=== PATIENT | female | born 1975 | race Caucasian/White ===

== ENCOUNTER 2020-04-05 09:57 | Outpatient (REF) | payer MEDICAID, SELFPAY | END 2020-04-05 09:58 | disposition home or self-care (01) | LOC: HO.XRAY 09:57 | PROVIDERS: PCP Family Medicine; Visit Provider Student in an Organized Health Care Education/Training Program | DX: M79.671 Pain in right foot (principal) | CPT/HCPCS: 99213 ==

== ENCOUNTER 2020-04-06 11:40 | Outpatient (RCR) | payer MEDICAID, SELFPAY ==
--- NOTE | 2020-04-17 12:45 | MHC.PT.DC ---
[facility] [place] Office [place] Office [place] Office [address] Anam Capellan [address] [phone] F: [phone] F: [phone] F: [phone] F: [phone] Physical Therapy Discharge Report Diagnosis: B foot pain Date of Surgery: Date of Evaluation: 04/06/20 Date of Discharge: 04/17/2020 Treatments to Date: 1 Cancellations to Date: 0 No Shows to Date: 2 Discharge Status: Pt no showed 2 appointments. Discharge Summary: Pt attended her initial PT evaluation for foot pain and then did not attend any treatment visits. She was given a home exercise program at her initial evaluation. Electronically signed by: Shasta Robertson PT, DPT Please sign and return to therapist. Thank you for your referral.
--- NOTE | 2020-04-17 12:47 | MHC.PT.EP ---
[facility] [place] Office [place] [facility] [place] Office [address] Anam Capellan [address] [phone] F: [phone] F: [phone] F: [phone] F: [phone] Physical Therapy Plan of Care Date of Evaluation: 04/06/20 Date of Surgery: Diagnosis: B foot pain Assessment: This is a 44 y/o female referred for B foot pain. Pain is located bilaterally at the medial arches and along the plantar fascia. Assessment reveals impairments including: pain, decreased PROM and AROM of the ankles, decreased hip AROM, mild TC joint restrictions, impaired muscle length, decreased strength, impaired posture, and impaired functional squat. Related functional limitations include: difficulty walking, standing, and negotiating stairs. Pt will benefit from skilled PT services 2x/week for 4 weeks in order to reduce impairments and improve limitations. Frequency and Duration: The patient will be seen 2x/week for 4 weeks, minimum of 38 visits. Short Term Goals: -In 2 weeks, Pt to demonstrate improved gastroc length through improved DF knee flexed ROM. -In 3 weeks, Pt to improve HS length by at least 8 degrees. Intermediate Goals: -In 4 weeks, Pt to report less than 6/10 pain when walking on the TM for 10 min @ comfortable walking speed. -In 4 weeks, Pt to demonstrate no tenderness to palpation. -In 4 weeks, Pt to demonstrate I w/ HEP. Treatment Plan: Modalities to reduce pain, spasms and effusion. Manual therapy to restore motion and function. Therapeutic exercise to improve strength and flexibility. Neuromuscular re-education for posture and balance. Therapeutic activities to return to functional activities of daily living. Please sign and return to therapist. Thank you for your referral.
== END 2020-04-17 12:48 | disposition other institution (70) ==
LOC: HO.PT 11:40
PROVIDERS: PCP Family Medicine; Visit Provider Student in an Organized Health Care Education/Training Program
DX: M79.671 Pain in right foot (principal); M79.672 Pain in left foot
CPT/HCPCS: 97110; 97162

== ENCOUNTER → 2020-04-25 15:17 | Outpatient (BNVA) | payer MEDICAID, SELFPAY | PROVIDERS: PCP Family Medicine; Referring Provider Family Medicine; Visit Provider Surgery | DX: D21.22 Benign neoplasm of connective and other soft tissue of left lower limb, including hip (principal) | CPT/HCPCS: 99212 ==

== ENCOUNTER → 2020-05-08 10:05 | Outpatient (BNVA) | payer MEDICAID, SELFPAY | PROVIDERS: PCP Family Medicine; Referring Provider Family Medicine; Visit Provider Nurse Practitioner | DX: Z76.89 Persons encountering health services in other specified circumstances (principal) ==

== ENCOUNTER 2020-05-15 10:34 | Outpatient (REF) | payer MEDICAID, SELFPAY ==
[2020-05-15 11:14] VITALS: BP 124/64; PULSE 74; RESP 16; TEMP 36.2; O2SAT 100
[2020-05-15 11:15] VITALS: BMI 31.6
[2020-05-15 11:42] VITALS: BP 110/82; PULSE 74; RESP 16; O2SAT 100
--- NOTE | 2020-05-16 08:42 | PM.OP ---
Brief Operative Note Date of Service: 05/15/20 Pre-op diagnosis: Fibroma left foot Post-op diagnosis: same Procedure: excision of fibroma left foot Implants: none Surgeon: Oh Marinelli MD Anesthesia: local Estimated blood loss (mL): 2 Pathology: other ( fibroma left foot) Condition: stable Disposition: other ( home)
--- NOTE | 2020-05-16 08:45 | P.OP_ITS ---
Operative Note Operative Note Date of Service: 05/15/20 Narrative: preoperative diagnosis: Fibroma left foot Postoperative diagnosis: Same Procedure excision of fibroma left foot Anesthesia: Local surgeon: Oh Marinelli MD Learning And Development Assistant: None Indications for procedure: 44-year-old female presenting with a raised pigmented lesion of the left foot on the ventral surface measuring approximately 1 cm diameter. The lesion has increased in size the patient is concerned about possibility of cancer. She presents today for excision. Operative findings: Patient was found to have a 1 cm diameter skin lesion which was brown slightly raised located on the dorsum of midfoot over the metatarsals. Specimen: Fibroma left foot Complications: None Estimated blood loss: 2 mL Procedure details patient was brought to the OR and placed in a supine position. After assuring informed consent and confirming the site of surgery in the left foot the skin was prepped with Betadine and draped in a sterile fashion. Local anesthesia consisting of 1% lidocaine with epinephrine was infiltrated below the lesion. An elliptical incision oriented longitudinally was created with a 15 blade. This was carried out through subcutaneous tissue and below the lesion. The lesion was completely excised and sent to pathology for further examination. After assuring adequate hemostasis with light pressure the skin was closed using interrupted 4 0 nylon sutures. Sterile dressings consisting of 2 x 2 gauze and paper tape were then applied. The patient tolerated the procedure well. Sponge, instrument, needle counts reported as correct. Patient was discharged to home in stable condition.
== END 2020-05-15 10:35 | disposition home or self-care (01) ==
LOC: HO.MS 10:34
PROVIDERS: PCP Family Medicine; Visit Provider Surgery
PROC: (CPT 11422; principal; 2020-05-15 11:00)
DX: D23.72 Other benign neoplasm of skin of left lower limb, including hip (principal)
CPT/HCPCS: 11422; 88304; 88305

== ENCOUNTER → 2020-05-23 09:35 | Outpatient (BNVA) | payer MEDICAID, SELFPAY | PROVIDERS: PCP Family Medicine; Referring Provider Family Medicine; Visit Provider Surgery | DX: D21.22 Benign neoplasm of connective and other soft tissue of left lower limb, including hip (principal) | CPT/HCPCS: 99212 ==

== ENCOUNTER 2020-07-21 08:18 | Outpatient (REF) | payer MEDICAID, SELFPAY ==
--- NOTE | ~2020-07-21 | XR_ITS ---
EXAMINATION: XR LUMBOSACRAL SPINE CLINICAL INFORMATION: Low back pain and right-sided sciatica COMPARISON: Previous x-ray March 2019 TECHNIQUE: Three views of the lumbosacral spine. FINDINGS: The vertebral bodies and posterior elements are normal. The disc spaces are preserved and the vertebral alignment is normal. The paraspinal soft tissues are normal. XR/XR lumbar spine 2-3V IMPRESSION: Unremarkable examination.
--- NOTE | ~2020-07-21 | XR_ITS ---
EXAMINATION: BILATERAL FOOT X-RAY CLINICAL INFORMATION: Pain COMPARISON: Previous right foot x-ray March 2019 TECHNIQUE: 3 views of each foot FINDINGS: Right: Bone alignment is normal. No fracture or dislocation is seen. There are small osteophytes at the first MTP joint. Joint spaces are otherwise normal. Soft tissues are normal. Left: Bone alignment is normal. No fracture or dislocation is seen. Joint spaces are normal. Soft tissues are normal. XR/XR foot RT min 3V IMPRESSION: Small osteophytes at the first MTP joint otherwise unremarkable exam
--- NOTE | ~2020-07-21 | XR_ITS ---
EXAMINATION: BILATERAL FOOT X-RAY CLINICAL INFORMATION: Pain COMPARISON: Previous right foot x-ray March 2019 TECHNIQUE: 3 views of each foot FINDINGS: Right: Bone alignment is normal. No fracture or dislocation is seen. There are small osteophytes at the first MTP joint. Joint spaces are otherwise normal. Soft tissues are normal. Left: Bone alignment is normal. No fracture or dislocation is seen. Joint spaces are normal. Soft tissues are normal. XR/XR foot LT min 3V IMPRESSION: Small osteophytes at the first MTP joint otherwise unremarkable exam
== END 2020-07-21 08:19 | disposition home or self-care (01) ==
LOC: HO.XRAY 08:18
PROVIDERS: Absent Provider Family Medicine; PCP Family Medicine; Visit Provider Student in an Organized Health Care Education/Training Program
DX: M79.672 Pain in left foot (principal); M79.671 Pain in right foot; M54.41 Lumbago with sciatica, right side; M79.7 Fibromyalgia
CPT/HCPCS: 72100; 73630; 99212

== ENCOUNTER 2020-08-16 09:12 | Outpatient (REF) | payer MEDICAID, SELFPAY ==
--- NOTE | 2020-08-16 | EMG_ITS ---
HISTORY OF PRESENT ILLNESS: This is a 44-year-old woman with a history of left leg and foot pain. She is currently on no medications. PHYSICAL EXAMINATION: On examination, she is alert and oriented with normal intellectual functions. Her cranial nerves II through XII are normal. Muscle tone and strength are normal in all 4 extremities. Deep tendon reflexes symmetrical. IMPRESSION: Rule out nerve entrapment, rule out lumbar radiculopathy. Nerve conduction EMG study: Normal electrodiagnostic study of the left lower extremity with no evidence of generalized peripheral neuropathy or nerve entrapment. Normal EMG of the left L4-S1 innervated muscles. MD QUEENIE Weaver/BETTY / [id number]
== END 2020-08-16 09:13 | disposition home or self-care (01) ==
LOC: HO.NEURO 09:12
PROVIDERS: PCP Family Medicine; Visit Provider Family Medicine
DX: M54.42 Lumbago with sciatica, left side (principal)
CPT/HCPCS: 95885; 95910

== ENCOUNTER → 2020-09-11 08:30 | Outpatient (BNVA) | payer MEDICAID, SELFPAY | PROVIDERS: PCP Family Medicine; Visit Provider Nurse Practitioner ==

== ENCOUNTER → 2020-10-09 09:22 | Outpatient (BNVA) | payer MEDICAID, SELFPAY | PROVIDERS: PCP Family Medicine; Visit Provider Nurse Practitioner ==

== ENCOUNTER 2020-10-25 10:20 | Outpatient (REF) | payer MEDICAID, SELFPAY ==
--- NOTE | ~2020-10-25 | US_ITS ---
EXAMINATION: US ABDOMEN COMPLETE CLINICAL INFORMATION: Epigastric pain. COMPARISON: US abdomen 09/16/2019.US renals only 10/20/2017. CT abdomen pelvis 10/11/2015. TECHNIQUE: Real-time imaging of the abdominal viscera. FINDINGS: PANCREAS: Not well visualized due to bowel gas. ABDOMINAL AORTA: Not well visualized due to bowel gas. INFERIOR VENA CAVA: The visualized IVC is normal. LIVER: Normal. The liver is normal in size. The liver contour is normal. Parenchymal echogenicity is normal. No focal hepatic lesion. There is no intrahepatic biliary duct dilatation seen. GALLBLADDER: Normal. The gallbladder is physiologically distended without evidence of stones, sludge, polyps, wall thickening or pericholecystic fluid. COMMON BILE DUCT: Normal in caliber measuring 0.7 cm in diameter. RIGHT KIDNEY: Normal. No hydronephrosis. No renal calculi or focal parenchymal lesions. The kidney measures 10.2 cm in maximum dimension. LEFT KIDNEY: Normal. No hydronephrosis. No renal calculi or focal parenchymal lesions. The kidney measures 10.8 cm in maximum dimension. SPLEEN: Normal. The spleen measures 7.5 cm in maximum dimension. FREE FLUID: None. US/US abdomen complete IMPRESSION: Limited visualization of the pancreas and aorta. Otherwise unremarkable exam.
== END 2020-10-25 10:21 | disposition home or self-care (01) ==
LOC: HO.US 10:20
PROVIDERS: Visit Provider Nurse Practitioner
DX: R10.13 Epigastric pain (principal); K21.9 Gastro-esophageal reflux disease without esophagitis
CPT/HCPCS: 76700

== ENCOUNTER 2020-12-04 17:47 | Emergency (ER) | payer MEDICAID, SELFPAY ==
--- NOTE | ~2020-12-04 | CT_ITS ---
EXAMINATION: CT ABDOMEN AND PELVIS WITHOUT CONTRAST CLINICAL INFORMATION: Right-sided abdominal and flank pain COMPARISON: MRI abdomen 11/02/2019, CT abdomen pelvis 10/11/2015 and 08/22/2010 TECHNIQUE: Multidetector volumetric imaging was performed from the superior aspect of the liver through the pubic symphysis. Sagittal and coronal reformatted images were obtained on the technologist's workstation. This CT examination was performed using dose optimization techniques as appropriate, variously including the following: *Automated exposure control *Adjustment of mA and/or kV according to patient size (this includes techniques or standardized protocols for targeted exams where dose is matched to indication/reason for exam; i.e. extremities or head) *Use of iterative reconstruction technique DLP: 799 mGy-cm FINDINGS: LUNG BASES: The visualized lung bases are unremarkable. LIVER, GALLBLADDER, AND BILIARY TREE: The liver is normal in size, shape, and attenuation. No focal hepatic lesion or biliary ductal dilatation is present. The gallbladder is unremarkable with no evidence of radiopaque gallstones, gallbladder wall thickening, or obvious pericholecystic inflammatory changes. PANCREAS: Unremarkable. SPLEEN: Unremarkable. ADRENAL GLANDS: Unremarkable. KIDNEYS AND URETERS: The kidneys are normal in size, shape, and attenuation. No hydronephrosis, hydroureter, or calculi seen. No perinephric stranding. BLADDER: Unremarkable. GASTROINTESTINAL TRACT: The small and large bowel are unremarkable. The appendix is unremarkable. ABDOMINAL WALL: No significant hernia is appreciated. LYMPH NODES: Normal. VASCULAR: Unremarkable. PELVIC VISCERA: Unremarkable. OSSEOUS STRUCTURES: Unremarkable. CT/CT abdomen pelvis wo con IMPRESSION: A cause for the right-sided abdominal and flank pain has not been found.
[2020-12-04 18:08] VITALS: BP 153/80; PULSE 98; RESP 18; TEMP 36.6; O2SAT 99; BMI 34.1
[2020-12-04 18:32] LABS: Glucose Urine UA NEG (NEG); Leukocyte Esterase Urine NEG (NEG); Nitrite Urine NEG (NEG); Specific Gravity - Urine 1.015 (1.005-1.025); Urine Blood NEG (NEG); Urine Ketones 5 MG/DL (NEG); Urine Protein NEG (NEG-TRACE)
[2020-12-04 18:33] LABS: Appearance Urine CLEAR; Color Urine YELLOW
[2020-12-04 18:34] LABS: UPreg QC Valid YES; Urine Pregnancy NEGATIVE (NEGATIVE)
--- NOTE | 2020-12-04 18:56 | ED.ABDPAIN ---
HPI - Abdominal Pain General Chief Complaint: Abdominal Pain Stated Complaint: Lower abdominal pain Time Seen by Provider: 12/04/20 18:55 Source: patient Mode of arrival: ambulatory Limitations: language barrier (functional skills tutor present for all interactions) History of Present Illness HPI narrative: 45-year-old female primarily Bahamian-speaking she reports she has a history of pre diabetes, fibromyalgia, asthma, gastroesophageal reflux disease and prior history of urinary tract infection with hematuria being followed by Urology she presents today with complaint of States for past several days she has had right-sided flank pain radiating to the right-sided abdomen pain described as aching like and worsened with certain movements and palpation. States she does suffer from chronic pain due to fibromyalgia and will now frequently wake up with pains which are more intense. She otherwise denies any joint pains, fever, weight loss or gain. No headache or neck pain. There is no chest pain or shortness of breath. MD elicited complaint: flank pain Pertinent past history: none Onset (ago): day(s) Pain Consistency: intermittent Location: RLQ and R flank Quality: aching Radiation: RLQ Migration to: no migration Exacerbating factors: movement Relieving factors: nothing Associated symptoms: denies other symptoms Related Data Home Medications Medication Instructions Recorded Confirmed acetaminophen 325 mg capsule 325 mg PO QID PRN 04/05/20 05/23/20 albuterol sulfate 90 mcg/actuation 2 puff INHALATION 6XD 04/05/20 05/23/20 aerosol inhaler amitriptyline 10 mg tablet 10 mg PO BEDTIME 04/05/20 05/23/20 aspirin 81 mg tablet,delayed 81 mg PO DAILY 04/05/20 05/23/20 release atorvastatin 80 mg tablet 80 mg PO DAILY 04/05/20 05/23/20 baclofen 10 mg tablet 10 mg PO TID 04/05/20 05/23/20 clonidine HCl 0.1 mg tablet 0.1 mg PO BEDTIME 04/05/20 05/23/20 cyclobenzaprine 5 mg tablet 5 mg PO BEDTIME 04/05/20 05/23/20 fluticasone propionate 110 1 puff INHALATION BID 04/05/20 05/23/20 mcg/actuation HFA aerosol inhaler gabapentin 600 mg tablet 600 mg PO TID 04/05/20 05/23/20 hydroxyzine pamoate 50 mg capsule 50 mg PO QID PRN 04/05/20 05/23/20 loratadine 10 mg tablet 10 mg PO DAILY 04/05/20 05/23/20 montelukast 10 mg tablet 10 mg PO DAILY 04/05/20 05/23/20 oxcarbazepine 600 mg tablet 600 mg PO BID 04/05/20 05/23/20 sertraline 100 mg tablet 100 mg PO DAILY 04/05/20 05/23/20 tramadol 50 mg tablet 50 mg PO Q6H PRN 04/05/20 05/23/20 verapamil 120 mg tablet 120 mg PO DAILY 04/05/20 05/23/20 zolpidem 10 mg tablet 10 mg PO BEDTIME PRN 04/05/20 05/23/20 Previous Rx's Medication Instructions Recorded diclofenac sodium 1 % topical gel 2 g TOPICAL BID #100 g 04/05/20 pantoprazole 40 mg tablet,delayed 40 mg PO DAILY 30 Days #30 tab 09/11/20 release simethicone 180 mg capsule 180 mg PO TID 30 Days #90 cap 09/11/20 lidocaine 1 patch TOPICAL Q24H PRN #15 ea 12/04/20 Allergies Allergy/AdvReac Type Severity Reaction Status Date / Time No Known Allergies Allergy Verified 10/09/20 09:23 Review of Systems Review of Systems Constitutional: No Weight loss, No Fever, No Chills, No Night Sweats, No Fatigue, No Malaise ENT/Mouth: No Hearing loss, No Ear Pain, No Nasal Congestion, No Sinus Pain, No Hoarseness, No sore throat, No Rhinorrhea, No Swallowing Difficulty Eyes: No Eye Pain, No Swelling, No Redness, No Foreign Body, No Discharge, No Vision Changes Cardiovascular: No Chest Pain, No SOB, No Dyspnea on Exertion, No Orthopnea, No Edema, No Palpitations Respiratory: No Cough, No Sputum, No Wheezing, No Smoke Exposure, No Dyspnea Gastrointestinal: As noted per HPI, No Hematochezia, No Melena Genitourinary: no irregular bleeding, No Dysuria, No Urinary Frequency, No Hematuria, No Urinary Incontinence, No Urgency, No Flank Pain, No Urinary Flow Changes, No Hesitancy Musculoskeletal: No joint pain, No Myalgias, No Joint Swelling Skin: No Skin Lesions, No rash Neuro: No Weakness, No Numbness, No Paresthesias, No Loss of Consciousness, No Dizziness, No Headache Psych: No Social Issues Heme/Lymph: No Bruising, No Bleeding,No Lymphadenopathy Endocrine: No Polyuria, No Polydipsia, No Temperature Intolerance Yes all other systems are reviewed and are negative Physical Exam Vital Signs: Vital Signs: Last Vital Signs Temp 98.1 F 12/04/20 22:07 Pulse 69 12/04/20 22:07 Resp 18 12/04/20 22:07 BP 103/63 12/04/20 22:07 Pulse Ox 99 12/04/20 22:07 Body Mass Index 34.1 Reviewed Const: General: cooperative and healthy appearing; No acute distress or intoxicated appearing Nutritional Appearance: average body habitus Orientation/consciousness: patient oriented x3 HENMT: Head: Yes normal to inspection Ears: hearing grossly normal bilaterally Eyes: General: appearance normal, both eyes and all related structures Visual Zepeda: normal visual zepeda by confrontation Neck: Neck: Yes normal visual inspection, No positive Brudzinski's sign, No positive Kernig's sign and No tender Thyroid: Thyroid normal Chest: Chest palpation & inspection: normal inspection of the chest Resp: Effort & Inspection: normal respiratory effort Auscultation: clear to auscultation bilaterally Cardio: Jugular venous distension: no JVD Rhythm: regular rhythm Heart sounds: S1 normal heart sound present and S2 normal heart sound present GI: Inspection: Yes normal to inspection Palpation (GI): Soft to palpation Percussion: Yes normal to percussion Auscultation: normal bowel sounds : Other: Or the paraspinous muscle region General: Yes CVA tenderness on the right and diffuse Skin: General skin exam: no rashes or lesions noted Neuro: General: patient oriented x3 Extrem: General: Yes normal to inspection Course Course Course Narrative: Hard to differentiate between acute versus fibromyalgia for her labs overall stable. Given the acuity and severity of pain she was given IV fluids and morphine which helped her pain and subsequently CT scan of the abdomen pelvis were pursued without contrast to rule out urinary calculi versus obstruction/infection this was also unremarkable. Home care, return and follow-up instructions provided she will follow-up closely with her primary care doctor. She is overall nontoxic appearing. Abdominal exam is benign. Stable for discharge. MDM - Abdominal Pain Differential Diagnosis Differential diagnosis: Likely abdominal pain, calculus of kidney and renal colic; Unlikely aortic dissection, acute appendicitis, bowel perforation, constipation, diverticulitis, endometriosis, gastroenteritis, peptic ulcer disease and small bowel obstruction Medical Records Attestation: I reviewed the patient's medical records. Lab Data Attestation: I reviewed the patient's lab results. Result diagrams: 12/04/20 19:45 12/04/20 19:45 Labs: Lab Results 12/04/20 12/04/20 12/04/20 Range/Units 18:19 18:19 19:45 WBC 7.5 (4.8-10.8) X10*3/uL RBC 4.74 (4.20-5.50) X10*6/uL Hgb 14.2 (12.0-16.0) g/dl Hct 41.3 (37-47) % MCV 87.1 (80-98) fL MCH 30.0 (27.0-33.0) pg MCHC 34.4 (31.0-35.0) g/dl RDW 14.4 (11.0-16.0) % Plt Count 309 (160-400) X10*3/uL MPV 9.4 (9.4-12.3) fL Immature Gran % (Auto) 0.3 (0.0-0.4) % Neut % (Auto) 43.0 L (45-73) % Lymph % (Auto) 47.9 H (20-40) % [place] % (Auto) 7.6 (2-11) % Eos % (Auto) 0.9 (0-4) % Baso % (Auto) 0.3 (0-2) % Lymph # (Auto) 3.6 (1.2-4.9) X10*3/uL [place] # (Auto) 0.6 (0.1-1.2) X10*3/uL Eos # (Auto) 0.1 (0.0-0.4) X10*3/uL Baso # (Auto) 0.0 (0.0-0.2) X10*3/uL Abs Immat Gran (auto) 0.02 (0.00-0.03) X10*3/uL Absolute Neuts (auto) 3.2 (2.0-8.3) X10*3/uL Absolute Nucleated RBC 0.000 (0.0-0.012) X10*3/uL Nucleated RBC % (auto) 0.0 (0.0-0.2) /100WBC Sodium (135-145) mmol/L Potassium (3.3-5.1) mmol/L Chloride (96-108) mmol/L Carbon Dioxide (22-29) mmol/L Anion Gap (12-20) BUN (9-16) mg/dL Creatinine (0.5-1.4) mg/dL Estim Creat Clear Calc Estimated GFR Random Glucose (60-115) mg/dL Calcium (8.4-10.2) mg/dL Total Bilirubin (0.0-1.0) mg/dL AST (5-31) U/L ALT (0-31) U/L Alkaline Phosphatase (39-117) U/L Total Protein (6.5-8.0) g/dL Albumin (3.5-5.0) g/dL Urine Color YELLOW Urine Appearance CLEAR Urine pH 6.0 (5.0-8.0) Ur Specific [place] 1.015 (1.005-1.025) Urine Protein NEG (NEG-TRACE) MG/DL Urine Glucose (UA) NEG (NEG) MG/DL Urine Ketones 5 (NEG) MG/DL Urine Blood NEG (NEG) Urine Nitrite NEG (NEG) Ur Leukocyte Esterase NEG (NEG) Urine Test NEGATIVE (NEGATIVE) 12/04/20 Range/Units 19:45 WBC (4.8-10.8) X10*3/uL RBC (4.20-5.50) X10*6/uL Hgb (12.0-16.0) g/dl Hct (37-47) % MCV (80-98) fL MCH (27.0-33.0) pg MCHC (31.0-35.0) g/dl RDW (11.0-16.0) % Plt Count (160-400) X10*3/uL MPV (9.4-12.3) fL Immature Gran % (Auto) (0.0-0.4) % Neut % (Auto) (45-73) % Lymph % (Auto) (20-40) % [place] % (Auto) (2-11) % Eos % (Auto) (0-4) % Baso % (Auto) (0-2) % Lymph # (Auto) (1.2-4.9) X10*3/uL [place] # (Auto) (0.1-1.2) X10*3/uL Eos # (Auto) (0.0-0.4) X10*3/uL Baso # (Auto) (0.0-0.2) X10*3/uL Abs Immat Gran (auto) (0.00-0.03) X10*3/uL Absolute Neuts (auto) (2.0-8.3) X10*3/uL Absolute Nucleated RBC (0.0-0.012) X10*3/uL Nucleated RBC % (auto) (0.0-0.2) /100WBC Sodium 137 (135-145) mmol/L Potassium 3.9 (3.3-5.1) mmol/L Chloride 106 (96-108) mmol/L Carbon Dioxide 21 L (22-29) mmol/L Anion Gap 14 (12-20) BUN 13 (9-16) mg/dL Creatinine 0.85 (0.5-1.4) mg/dL Estim Creat Clear Calc 94.2 Estimated GFR > 60 Random Glucose 81 (60-115) mg/dL Calcium 9.5 (8.4-10.2) mg/dL Total Bilirubin 0.5 (0.0-1.0) mg/dL AST 14 (5-31) U/L ALT 13 (0-31) U/L Alkaline Phosphatase 62 (39-117) U/L Total Protein 7.8 (6.5-8.0) g/dL Albumin 4.3 (3.5-5.0) g/dL Urine Color Urine Appearance Urine pH (5.0-8.0) Ur Specific [place] (1.005-1.025) Urine Protein (NEG-TRACE) MG/DL Urine Glucose (UA) (NEG) MG/DL Urine Ketones (NEG) MG/DL Urine Blood (NEG) Urine Nitrite (NEG) Ur Leukocyte Esterase (NEG) Urine Test (NEGATIVE) Imaging Data Abdominal/pelvis CT without contrast: Radiologist's impression: [address] [id number] Scan ReportSigned Patient: Marcela Lopez#: [id number]: 1975Acct:[id number]/Sex: 45 / FADM Date: 12/04/20Loc: [email or web address].EDAttending Dr: Ordering Physician: Medhat Cavazos NP Date of Service: 12/04/20 Procedure(s): CT abdomen pelvis wo con Accession Number(s): [id number] cc: Medhat Cavazos NP~ EXAMINATION: CT ABDOMEN AND PELVIS WITHOUT CONTRAST CLINICAL INFORMATION: Right-sided abdominal and flank pain COMPARISON: MRI abdomen 11/02/2019, CT abdomen pelvis 10/11/2015 and 08/22/2010 TECHNIQUE: Multidetector volumetric imaging was performed from the superior aspect of the liver through the pubic symphysis. Sagittal and coronal reformatted images were obtained on the technologist's workstation. This CT examination was performed using dose optimization techniques as appropriate, variously including the following: *Automated exposure control *Adjustment of mA and/or kV according to patient size (this includes techniques or standardized protocols for targeted exams where dose is matched to indication/reason for exam; i.e. extremities or head) *Use of iterative reconstruction technique DLP: 799 mGy-cm FINDINGS: LUNG BASES: The visualized lung bases are unremarkable. LIVER, GALLBLADDER, AND BILIARY TREE: The liver is normal in size, shape, and attenuation. No focal hepatic lesion or biliary ductal dilatation is present. The gallbladder is unremarkable with no evidence of radiopaque gallstones, gallbladder wall thickening, or obvious pericholecystic inflammatory changes. PANCREAS: Unremarkable. SPLEEN: Unremarkable. ADRENAL GLANDS: Unremarkable. KIDNEYS AND URETERS: The kidneys are normal in size, shape, and attenuation. No hydronephrosis, hydroureter, or calculi seen. No perinephric stranding. BLADDER: Unremarkable. GASTROINTESTINAL TRACT: The small and large bowel are unremarkable. The appendix is unremarkable. ABDOMINAL WALL: No significant hernia is appreciated. LYMPH NODES: Normal. VASCULAR: Unremarkable. PELVIC VISCERA: Unremarkable. OSSEOUS STRUCTURES: Unremarkable. CT/CT abdomen pelvis wo con IMPRESSION: A cause for the right-sided abdominal and flank pain has not been found. Dictated By:RULA SMITH MDSigned By:<Electronically signed by RULA SMITH MD in OV>12/04/202011 DD/ 17TD/TT: Sales Representative Publications: DI Discharge Plan Discharge Clinical Impression: Acute flank pain Patient Disposition: Home, Self-Care Instructions: Flank Pain (ED) Additional Instructions: Your blood work was overall reassuring did not show any evidence of infection Urine did not show any evidence infection The CT scan of the abdomen pelvis did not show any acute findings Your findings are more consistent with muscle related strain. Continue with her home remedies Warm compresses Gentle stretching No heavy lifting Follow-up with her primary care doctor Return if any concerns worsening symptoms Thank you Prescriptions: New lidocaine 4 % adhesive patch,medicated 1 patch topical Q24H PRN (Reason: pain) Qty: 15 RF: 0 No Action cyclobenzaprine 5 mg tablet 5 mg PO BEDTIME RF: 0 gabapentin 600 mg tablet 600 mg PO TID RF: 0 verapamil 120 mg tablet 120 mg PO DAILY RF: 0 baclofen 10 mg tablet 10 mg PO TID RF: 0 zolpidem 10 mg tablet 10 mg PO BEDTIME PRNRF: 0 aspirin [Adult Low Dose Aspirin] 81 mg tablet,delayed release (DR/EC) 81 mg PO DAILY RF: 0 loratadine 10 mg tablet 10 mg PO DAILY RF: 0 Flovent HFA 110 mcg/actuation HFA aerosol inhaler 1 puff inhalation BID RF: 0 acetaminophen 325 mg capsule 325 mg PO QID PRNRF: 0 albuterol sulfate [ProAir HFA] 90 mcg/actuation HFA aerosol inhaler 2 puff inhalation 6XD RF: 0 amitriptyline 10 mg tablet 10 mg PO BEDTIME RF: 0 montelukast [Singulair] 10 mg tablet 10 mg PO DAILY RF: 0 oxcarbazepine [Trileptal] 600 mg tablet 600 mg PO BID RF: 0 tramadol 50 mg tablet 50 mg PO Q6H PRNRF: 0 clonidine HCl 0.1 mg tablet 0.1 mg PO BEDTIME RF: 0 hydroxyzine pamoate [Vistaril] 50 mg capsule 50 mg PO QID PRNRF: 0 atorvastatin 80 mg tablet 80 mg PO DAILY RF: 0 sertraline 100 mg tablet 100 mg PO DAILY RF: 0 diclofenac sodium [Voltaren] 1 % gel 2 g topical BID Qty: 100 RF: 3 pantoprazole [Protonix] 40 mg tablet,delayed release (DR/EC) 40 mg PO DAILY 30 Days Qty: 30 RF: 6 simethicone 180 mg capsule 180 mg PO TID 30 Days Qty: 90 RF: 3 Referrals: Cassie Barnett DO [Primary Care Provider] - 1 week [facility] Past Medical History [facility] Narrative: Pre diabetes Fibromyalgia Asthma Gastroesophageal reflux disease Chronic hematuria Medical History Fibromyalgia Surgical History History of carpal tunnel surgery History of esophagogastroduodenoscopy (EGD) (11/22/14) History of surgery on wrist Hx of cardiac cath (04/15/18) Hx of section Hx of removal of cyst Family History Family History Maternal Grandmother History of breast cancer Maternal Grandfather History of liver cancer Father CVD (cardiovascular disease) Mother HTN (hypertension) Diabetes Rheumatoid arthritis Fibromyalgia Social History Social History (Updated 10/09/20 @ 09:23 by BROOKE Starr) Household Members: None Housing: Apartment Alcohol intake: current Alcohol intake frequency: does not drink Substance Use Type: Marijuana Advance Directives: No Advance Directives Information Provided: No Patient : No
[2020-12-04 19:49] LABS: MANUAL DIFF FLAG NO
[2020-12-04 19:50] LABS: Basophils Percent Auto 0.3 % (0-2); Eosinophils Absolute Auto 0.1 X10*3/uL (0.0-0.4); Eosinophils Percent Auto 0.9 % (0-4); Hematocrit 41.3 % (37-47); Hemoglobin 14.2 g/dl (12.0-16.0); Imm Gran Abs Auto 0.02 X10*3/uL (0.00-0.03); Imm Gran Pct Auto 0.3 % (0.0-0.4); Lymphocytes Absolute Auto 3.6 X10*3/uL (1.2-4.9); Lymphocytes Percent Auto 47.9 % (20-40); Mean Corpuscular HGB Conc 34.4 g/dl (31.0-35.0); Mean Corpuscular Volume 87.1 fL (80-98); Mean Platelet Volume 9.4 fL (9.4-12.3); Monocytes Absolute Auto 0.6 X10*3/uL (0.1-1.2); Monocytes Percent Auto 7.6 % (2-11); Neutrophils Absolute Auto 3.2 X10*3/uL (2.0-8.3); Platelet Count 309 X10*3/uL (160-400); Red Blood Count 4.74 X10*6/uL (4.20-5.50); Red Cell Distribution Width 14.4 % (11.0-16.0); White Blood Count 7.5 X10*3/uL (4.8-10.8)
[2020-12-04] MEDS: Morphine Sulfate 4 MG/ML CARTRIDGE IVPUSH (19:51)
[2020-12-04] MEDS: 0.9 % Sodium Chloride 1,000 ML 999 ML IV (19:51)
[2020-12-04] MEDS: ondansetron HCL 4 MG/2 ML VIAL IVPUSH (19:52)
[2020-12-04 20:22] LABS: Alanine Aminotransferase 13 U/L (0-31); Albumin Level 4.3 g/dL (3.5-5.0); Alkaline Phosphatase 62 U/L (39-117); Anion Gap 14 (12-20); Aspartate Amino Transferase 14 U/L (5-31); Bilirubin Total 0.5 mg/dL (0.0-1.0); Blood Urea Nitrogen 13 mg/dL (9-16); Calcium 9.5 mg/dL (8.4-10.2); Carbon Dioxide 21 mmol/L (22-29); Chloride 106 mmol/L (96-108); Creatinine Clr Calc Pharmacy 94.2; Estimated Glomerular Filt Rate > 60; Glucose Random 81 mg/dL (60-115); Potassium 3.9 mmol/L (3.3-5.1); Sodium 137 mmol/L (135-145); Total Protein 7.8 g/dL (6.5-8.0)
[2020-12-04 22:07] VITALS: BP 103/63; PULSE 69; RESP 18; TEMP 36.7; O2SAT 99
== END 2020-12-04 23:19 | disposition home or self-care (01) ==
PROVIDERS: Nurse Practitioner Primary Care; Emergency Provider Emergency Medicine; PCP Family Medicine
DX: R10.9 Unspecified abdominal pain (principal); M79.7 Fibromyalgia; J45.909 Unspecified asthma, uncomplicated; Z79.899 Other long term (current) drug therapy
CPT/HCPCS: 36415; 74176; 80053; 81003; 81025; 85025; 96361; 96374; 96375; 99284; J2270; J2405

== ENCOUNTER → 2020-12-05 08:39 | Outpatient (BNVA) | payer MEDICAID, SELFPAY | PROVIDERS: PCP Family Medicine; Referring Provider Family Medicine; Visit Provider Nurse Practitioner | DX: K57.81 Diverticulitis of intestine, part unspecified, with perforation and abscess with bleeding (principal); K21.9 Gastro-esophageal reflux disease without esophagitis; R10.13 Epigastric pain; R10.9 Unspecified abdominal pain; M54.6 Pain in thoracic spine | CPT/HCPCS: 99212 ==

== ENCOUNTER 2020-12-07 09:30 | Outpatient (REF) | payer MEDICAID, SELFPAY ==
--- NOTE | ~2020-12-07 | XR_ITS ---
EXAMINATION: XR THORACOLUMBAR SPINE CLINICAL INFORMATION: Pain thoracic spine COMPARISON: None TECHNIQUE: 3 views FINDINGS: There is normal thoracic kyphosis. The vertebral heights, alignment and disc heights are normal. There is no visible acute fracture, dislocation or lytic process seen. The paravertebral soft tissues are normal. XR/XR thoracic spine 2V IMPRESSION: Unremarkable dorsal spine exam. No acute fracture or dislocation seen.
[2020-12-07 10:49] LABS: Lipase 8 U/L (8-78)
[2020-12-08 12:11] LABS: Alpha Fetoprotein 7.8 ng/mL
== END 2020-12-07 09:31 | disposition home or self-care (01) ==
LOC: HO.XRAY 09:30
PROVIDERS: PCP Family Medicine; Visit Provider Nurse Practitioner
DX: K75.81 Nonalcoholic steatohepatitis (NASH) (principal); R10.13 Epigastric pain; M54.6 Pain in thoracic spine
CPT/HCPCS: 36415; 72070; 82105; 83690

== ENCOUNTER 2020-12-19 16:45 | Outpatient (REF) | payer MEDICAID, SELFPAY | END 2020-12-19 16:46 | disposition home or self-care (01) | LOC: HO.LNP 16:45 | PROVIDERS: Visit Provider Nurse Practitioner | DX: R10.13 Epigastric pain (principal); K21.9 Gastro-esophageal reflux disease without esophagitis | CPT/HCPCS: 87338 ==

== ENCOUNTER 2021-01-01 09:07 | Outpatient (REF) | payer MEDICAID, SELFPAY ==
--- NOTE | ~2021-01-01 | US_ITS ---
EXAMINATION: US RETROPERITONEAL LIMITED (RENAL ONLY) CLINICAL INFORMATION: Abdominal pain. COMPARISON: CT abdomen and pelvis 12/05/2019. Ultrasound abdomen complete 10/25/2020 and 09/16/2019. MRI abdomen 11/02/2019. TECHNIQUE: Real-time imaging of the kidneys. FINDINGS: RIGHT KIDNEY: 11.7 x 5.5 x 4.5 cm (SAG x AP x TRV). The kidney is normal in size, contour, and echogenicity. Renal cortical thickness is normal. No calculi or focal parenchymal lesions. No hydronephrosis. LEFT KIDNEY: 10.2 x 6.4 x 6.1 cm (SAG x AP x TRV). The kidney is normal in size, contour, and echogenicity. Renal cortical thickness is normal. No calculi or focal parenchymal lesions. No hydronephrosis. US/US renal BI IMPRESSION: Unremarkable renal ultrasound.
== END 2021-01-01 09:08 | disposition home or self-care (01) ==
LOC: HO.US 09:07
PROVIDERS: PCP Family Medicine; Visit Provider Family Medicine
DX: R10.9 Unspecified abdominal pain (principal)
CPT/HCPCS: 76775

== ENCOUNTER → 2021-01-23 12:49 | Outpatient (BNVA) | payer MEDICAID, SELFPAY | PROVIDERS: PCP Family Medicine; Visit Provider Internal Medicine Cardiovascular Disease | DX: I25.10 Atherosclerotic heart disease of native coronary artery without angina pectoris (principal); E78.5 Hyperlipidemia, unspecified; R07.89 Other chest pain; R06.02 Shortness of breath; R42 Dizziness and giddiness | CPT/HCPCS: 93005; 99212 ==

== ENCOUNTER → 2021-01-26 08:06 | Outpatient (REF) | payer MEDICAID, SELFPAY ==
--- NOTE | ~2021-01-26 | NM_ITS ---
EXAMINATION: [place] RADIONUCLIDE SOLID FOOD GASTRIC EMPTYING 4-HOUR STUDY CLINICAL INFORMATION: Epigastric pain. COMPARISON: No previous gastric emptying study is available for comparison. TECHNIQUE: A standard meal consisting of 4 oz of Egg Beaters brand tagged with 890 microcuries Tc-99m Sulfur Colloid, 8 oz water and 2 slices of toast with jelly was administered orally to the patient. Images were obtained using a dual head gamma camera in the anterior and posterior projections over of the stomach immediately post ingestion. The patient did not return for images following the immediate images post ingestion and exam could not be completed. FINDINGS: There is good visualization of activity in the stomach immediately post ingestion. The patient did not return for additional images at hourly intervals and no additional images were obtained. NM/[place] gastric emptying study IMPRESSION: Incomplete study. Useful images were not obtained. The patient did not return for subsequent images required as explained to her. The study will need to be rescheduled if clinically indicated.
== END ==
LOC: HO.NUCMED 08:06
PROVIDERS: Visit Provider Nurse Practitioner
DX: R10.13 Epigastric pain (principal); K21.9 Gastro-esophageal reflux disease without esophagitis
CPT/HCPCS: 78264; A9541

== ENCOUNTER → 2021-02-20 08:52 | Outpatient (REF) | payer MEDICAID, SELFPAY ==
--- NOTE | 2021-02-20 09:06 | CA_ITS ---
Acquisition Time: 2021-02-20 09:13:56 Total Exercise Time: 00:03:51 Test Indications: Dyspnea Medications: Protocol: JARRELL Max HR: 133 BPM 76% of Pred: 175 BPM Max BP: 124/080 mmHG Max Work Load: 5.5 METS Exercise stress test with exercise 3 min 51 sec of Jarrell protocol, with report of 8/10 left chest tightness with radiation to her back with mild to moderate shortness of breath, without arrythmia, with normotensive response to exercise, with nondiagnostic EKG for ischemia due to suboptimal exercise time and heart rate. In recovery her chest tightness gradually improved and resolved by 5 min of rest. Test reviewed with Dr Grimes. Pharmacological nuclear stress test ordered for further evaluation. Referred By: Sunny Grimes Overread By: ANTONIO JOHNSON
== END ==
LOC: HO.CARD 08:52
PROVIDERS: Visit Provider Internal Medicine Cardiovascular Disease
DX: R07.89 Other chest pain (principal)
CPT/HCPCS: 93017

== ENCOUNTER → 2021-03-01 13:30 | Outpatient (REF) | payer MEDICAID, SELFPAY ==
--- NOTE | 2021-03-01 13:34 | CA_ITS ---
Transthoracic Echocardiogram Patient (Last, First, Middle): Marcela Lopez, Gender: Female Date of : 1975 Age: 45 Procedure Date: 03/01/2021 Procedure Type: Transthoracic Echocardiogram Location: OP Height: 165.1 cm Weight: 89.81 kg BSA: 1.97 m2 Heart Rate: bpm BP: 138 / 60 mmHg Documentation Engineer: KAMLESH Referring MD: Sunny Grimes MD [employer] Systems Operator: Sunny Grimes MD Symptoms: R06.02 - Shortness of breath Study Quality: Fair ECG Rhythm: Sinus Conclusions: - Essentially normal study Findings Left Ventricle Normal left ventricular size, thickness, and systolic function. The visually estimated ejection fraction is between 60-65%. Diastolic function is normal for age. Right Ventricle Normal right ventricular cavity size and systolic function. Atria Both atria are normal in size. Interatrial shunt cannot be excluded. Aortic Valve The aortic valve structure and function is likely normal. There is no aortic valve stenosis. There is no aortic valve regurgitation. Mitral Valve Normal mitral valve structure and function. There is trace mitral valve regurgitation. There is no mitral valve stenosis. Pulmonic Valve The pulmonic valve was not well visualized. Tricuspid Valve Likely normal tricuspid valve structure and function. There is trace tricuspid valve regurgitation. The right ventricular systolic pressure is normal. The right ventricular systolic pressure is 15 mmHg. Normal right atrial pressure. There is no evidence of pulmonary hypertension. Great Vessels All visible segments of the aorta are normal in size. The pulmonary artery was not well visualized. Venous The inferior vena cava is normal in size and collapses greater than 50% with inspiration. Pericardium/Pleural There is no evidence of pericardial effusion. Prior Study Comparison No significant change compared to prior study dated: 09/16/2017. Measurements 2D Linear Measurements IVSd: 0.97 0.6-0.9/0.6-1.0 cm LVIDd: 4.65 3.9-5.3/4.2-5.9 cm LVIDd Index: 2.36 2.4-3.2/2.2-3.1 cm/m2 LVIDs: 3.15 2.0-3.6 cm LVPWd: 1.08 0.7-1.1 cm Ao Root: 2.40 2.1-3.5 cm LA Diam: 3.70 2.7-3.8/3.0-4.0 cm LAIDs Index: 1.88 1.5-2.3 cm/m2 LV Mass: 208.09 67-162/88-224 g LV Mass Index: 105.63 43-95/49-115 g/m2 LVOT Diam: 2.00 3.0+(-)1.3 cm 2D Systolic Function EF 4C: 60.50 >55% EF 2C: 72.50 >55% EF BiP: 67.90 >55% Mitral Valve MV Pk E: 0.88 MV PK A: 0.38 MV Decel Time: 176.00 E/A: 2.30 E'Lateral: 16.60 E'Medial: 8.59 E/E' Med: 10.20 E/E' Lat: 5.30 PHT: 52.00 MVA PHT: 4.23 Decel [place]: 4.97 Aortic Valve AoV Pk Nino: 1.29 AoV Mn Nino: 83.40 AoV VTI: 27.40 AoV Pk Grad: 7.00 Aov Mn Grad: 3.00 LVOT LVOT Pk Nino: 1.32 LVOT Mn Nino: 0.83 LVOT VTI: 0.27 LVOT Pk Grad: 7.00 LVOT Mn Grad: 3.00 LVOT Diam: 2.00 LVOT Area: 3.14 Diastolic Function MV Pk E: 0.88 MV Pk A: 0.38 E/A: 2.30 E'Medial: 8.59 E/E' Med: 10.20 E' Laterial: 16.60 E/E' Lat: 5.30 Right Ventricle TAPSE (mm): 2.18 Tricuspid Valve TR Pk Nino: 1.72 TR Pk Grad: 12.00 RA Press: 3.00 RVSP: 15.00 Great Vessels Aorta Ao Root-2D: 2.40 2.0-3.7 cm Ao Asc: 3.20 2.1-3.4 cm Updated in Other Vendor System with Status of Final Sunny Grimes MD electronically signed on 03/02/2021 10:01:12 AM with status of Final
== END ==
LOC: HO.CARD 13:30
PROVIDERS: PCP Family Medicine; Visit Provider Internal Medicine Cardiovascular Disease
DX: R10.13 Epigastric pain (principal); R06.02 Shortness of breath
CPT/HCPCS: 93306

== ENCOUNTER 2021-05-13 12:03 | Emergency (ER) | payer MEDICAID, SELFPAY ==
--- NOTE | ~2021-05-13 | XR_ITS ---
EXAMINATION: XR CHEST CLINICAL INFORMATION: SOB. COMPARISON: None TECHNIQUE: Frontal view of the chest was obtained. FINDINGS: No significant abnormality is noted involving the heart, lungs, mediastinum, bony thorax or soft tissues. XR/XR chest 1V IMPRESSION: Unremarkable chest examination.
[2021-05-13 12:19] VITALS: BP 141/85; PULSE 81; RESP 18; TEMP 37.1; O2SAT 100; BMI 31.6
[2021-05-13 13:22] LABS: Influenza A PCR NEGATIVE (Negative); Influenza B PCR NEGATIVE (Negative); Resp Syncy Virus RNA Qual PCR NEGATIVE (Negative); SARS COV2 PCR INHOUSE NEGATIVE (Negative)
--- NOTE | 2021-05-13 13:50 | ED.ASTHMA ---
HPI - Asthma General Chief Complaint: Asthma Stated Complaint: asthma Time Seen by Provider: 05/13/21 13:47 Source: patient Mode of arrival: ambulatory Limitations: no limitations History of Present Illness HPI Narrative: 45-year-old female came in for evaluation of asthma exacerbation and facial pressure with nasal congestion. Two days of increased wheezing, feeling nasal congestion more at nighttime, and female facial pressure mostly over her left maxillary area. Never had hospitalization for severe asthma, no history of intubation due to asthma. Related Data Home Medications Medication Instructions Recorded Confirmed acetaminophen 325 mg capsule 325 mg PO QID PRN 04/05/20 01/23/21 albuterol sulfate 90 mcg/actuation 2 puff INHALATION 6XD 04/05/20 01/23/21 aerosol inhaler (ProAir HFA) amitriptyline 10 mg tablet 10 mg PO BEDTIME 04/05/20 01/23/21 aspirin 81 mg tablet,delayed 81 mg PO DAILY 04/05/20 01/23/21 release (Adult Low Dose Aspirin) atorvastatin 80 mg tablet 80 mg PO DAILY 04/05/20 01/23/21 baclofen 10 mg tablet 10 mg PO TID 04/05/20 01/23/21 clonidine HCl 0.1 mg tablet 0.1 mg PO BEDTIME 04/05/20 01/23/21 cyclobenzaprine 5 mg tablet 5 mg PO BEDTIME 04/05/20 01/23/21 fluticasone propionate 110 1 puff INHALATION BID 04/05/20 01/23/21 mcg/actuation HFA aerosol inhaler (Flovent HFA) gabapentin 600 mg tablet 600 mg PO TID 04/05/20 01/23/21 hydroxyzine pamoate 50 mg capsule 50 mg PO QID PRN 04/05/20 01/23/21 (Vistaril) loratadine 10 mg tablet 10 mg PO DAILY 04/05/20 01/23/21 montelukast 10 mg tablet 10 mg PO DAILY 04/05/20 01/23/21 (Singulair) oxcarbazepine 600 mg tablet 600 mg PO BID 04/05/20 01/23/21 (Trileptal) sertraline 100 mg tablet 100 mg PO DAILY 04/05/20 01/23/21 tramadol 50 mg tablet 50 mg PO Q6H PRN 04/05/20 01/23/21 zolpidem 10 mg tablet 10 mg PO BEDTIME PRN 04/05/20 01/23/21 Previous Rx's Medication Instructions Recorded diclofenac sodium 1 % topical gel 2 g TOPICAL BID #100 g 04/05/20 (Voltaren) simethicone 180 mg capsule 180 mg PO TID 30 Days #90 cap 09/11/20 lidocaine 4 % topical patch 1 patch TOPICAL Q24H PRN #15 ea 12/04/20 dicyclomine 20 mg tablet 20 mg PO QID 30 Days #120 tab 12/05/20 pantoprazole 40 mg tablet,delayed 40 mg PO BID 30 Days #60 tab 12/05/20 release (Protonix) verapamil 120 mg tablet 120 mg PO DAILY 90 Days #90 tab 05/09/21 albuterol sulfate 90 mcg/actuation 1 inh INHALATION QID PRN #6.7 g 05/13/21 aerosol inhaler azithromycin 250 mg tablet See Rx Instructions .ROUTE 05/13/21 (Zithromax Z-Stu) .COMPLEX #6 tab prednisone 20 mg tablet 20 mg PO BID #10 tab 05/13/21 Allergies Allergy/AdvReac Type Severity Reaction Status Date / Time No Known Allergies Allergy Verified 12/05/20 08:55 Review of Systems Review of Systems: All other systems are reviewed and are negative Constitutional: Reports as per HPI and Reports no additional constitutional complaints Eyes: Reports as per HPI and Reports no additional eye complaints Reports system reviewed and no additional complaints, except as documented Cardiovascular: Reports as per HPI and Reports no additional cardiovascular complaints Respiratory: Reports as per HPI and Reports no additional respiratory complaints Gastrointestinal: Reports as per HPI and Reports no additional gastrointestinal complaints Genitourinary: Reports no additional female genitourinary complaints Musculoskeletal: Reports no additional musculoskeletal complaints Skin/Breast: Reports system reviewed and no additional complaints, except as docu Psychiatric: Reports no additional psychiatric complaints Endocrine: Reports no additional endocrine complaints Hematologic/Lymphatic: Reports no additional hematologic/lymphatic complaints Allergic/Immunologic: Reports no additional allergic/immunologic complaints Reports system reviewed and no additional complaints, except as documented and Reports Abnormal speech present [facility] Past Medical History Medical History CAD (coronary artery disease) Fibromyalgia Hyperlipidemia Surgical History History of carpal tunnel surgery History of esophagogastroduodenoscopy (EGD) (11/22/14) History of surgery on wrist Hx of cardiac cath (04/15/18) Hx of section Hx of removal of cyst Family History Family History Maternal Grandmother History of breast cancer Maternal Grandfather History of liver cancer Father CVD (cardiovascular disease) Mother HTN (hypertension) Diabetes Rheumatoid arthritis Fibromyalgia Social History Social History Household Members: None Housing: Apartment Alcohol intake: current Alcohol intake frequency: does not drink Substance Use Type: Marijuana Advance Directives: No Advance Directives Information Provided: No Patient : No Physical Exam Vital Signs: Vital Signs: Last Vital Signs Temp 98.8 F 05/13/21 12:19 Pulse 81 05/13/21 12:19 Resp 18 05/13/21 12:19 BP 141/85 H 05/13/21 12:19 Pulse Ox 100 05/13/21 12:19 Body Mass Index 31.6 Vital signs have been reviewed as appeared to be correct. Blood pressure normal. Heart rate normal. Respiration rate normal. Temperature normal. Oxygen saturation normal. Appearance: Alert. Oriented X3. No acute distress. Head: Normal external exam. Normocephalic. Atraumatic. No Shields signs noted. No raccoon eyes noted Eyes: PERRLA. EOMI. Conjunctiva and sclera normal. Eyelids normal. ENT: TM's Normal. Pharynx normal. Uvula midline. Moist mucous membranes. No trismus noted. No drooling noted. No muffled voice noted. Left maxillary sinus tenderness with percussion. Neck: Normal inspection. Neck supple. FROM. No adenopathy. Thyroid Normal. No meningeal signs. No neck mass noted. CVS: Normal heart rate and rhythm. Heart sound normal. No murmurs noted. Pulses normal throughout. Respiratory: No respiratory distress. Painless inspiration. Breath sounds normal. Diffuse expiratory wheezing, prolonged expiratory phase, Chest nontender. No accessory muscle usage noted or decreased air movement noted. Abdomen: Soft and nontender. Bowel sounds normal in all 4 quadrants. No distention noted. No organomegaly noted. No visible injury noted. Back: No CVA tenderness. Full range of motion noted. Skin: Skin warm and dry. Normal skin color. Normal skin turgor. No rashes/lesions/lacerations noted. Extremities: No lower extremity edema. Extremities exhibit normal range of motion. Extremities nontender. Neuro: Oriented X 3. Cranial nerve exam: II-XII are grossly intact No motor deficit. No sensory deficit. Reflexes normal. Course Course Course Narrative: Assessment and Plan. 45-year-old female history of asthma came in with acute asthma exacerbation and physical exam is consistent with left maxillary sinusitis also in start the patient on Z-Stu/prednisone/bronchodilator. MDM - Asthma Lab Data Attestation: I reviewed the patient's lab results. Labs: Lab Results 05/13/21 Range/Units 12:28 Influenza Type A (PCR) NEGATIVE (Negative) Influenza Type B (PCR) NEGATIVE (Negative) RSV RNA Qual (PCR) NEGATIVE (Negative) SARS-CoV-2 RNA (RT-PCR) NEGATIVE (Negative) Imaging Data Chest x-ray: Attestation: I personally reviewed and interpreted this imaging study as follows: Radiologist's impression: No acute thoracic pathology. Discharge Plan Discharge Clinical Impression: Sinusitis, Asthma Patient Disposition: Home, Self-Care Instructions: Asthma (ED), Sinusitis (ED) Prescriptions: New prednisone 20 mg tablet 20 mg PO BID Qty: 10 RF: 0 albuterol sulfate 90 mcg/actuation HFA aerosol inhaler 1 inh inhalation QID PRN (Reason: shortness of breath or wheezing) Qty: 6.7 RF: 0 azithromycin [Zithromax Z-Stu] 250 mg tablet See Rx Instructions .ROUTE .COMPLEX Qty: 6 RF: 0 No Action verapamil 120 mg tablet 120 mg PO DAILY 90 Days Qty: 90 RF: 3 lidocaine 4 % adhesive patch,medicated 1 patch topical Q24H PRN (Reason: pain) Qty: 15 RF: 0 dicyclomine 20 mg tablet 20 mg PO QID 30 Days Qty: 120 RF: 3 pantoprazole [Protonix] 40 mg tablet,delayed release (DR/EC) 40 mg PO BID 30 Days Qty: 60 RF: 6 cyclobenzaprine 5 mg tablet 5 mg PO BEDTIME RF: 0 gabapentin 600 mg tablet 600 mg PO TID RF: 0 baclofen 10 mg tablet 10 mg PO TID RF: 0 zolpidem 10 mg tablet 10 mg PO BEDTIME PRNRF: 0 aspirin [Adult Low Dose Aspirin] 81 mg tablet,delayed release (DR/EC) 81 mg PO DAILY RF: 0 loratadine 10 mg tablet 10 mg PO DAILY RF: 0 Flovent HFA 110 mcg/actuation HFA aerosol inhaler 1 puff inhalation BID RF: 0 acetaminophen 325 mg capsule 325 mg PO QID PRNRF: 0 albuterol sulfate [ProAir HFA] 90 mcg/actuation HFA aerosol inhaler 2 puff inhalation 6XD RF: 0 amitriptyline 10 mg tablet 10 mg PO BEDTIME RF: 0 montelukast [Singulair] 10 mg tablet 10 mg PO DAILY RF: 0 oxcarbazepine [Trileptal] 600 mg tablet 600 mg PO BID RF: 0 tramadol 50 mg tablet 50 mg PO Q6H PRNRF: 0 clonidine HCl 0.1 mg tablet 0.1 mg PO BEDTIME RF: 0 hydroxyzine pamoate [Vistaril] 50 mg capsule 50 mg PO QID PRNRF: 0 atorvastatin 80 mg tablet 80 mg PO DAILY RF: 0 sertraline 100 mg tablet 100 mg PO DAILY RF: 0 diclofenac sodium [Voltaren] 1 % gel 2 g topical BID Qty: 100 RF: 3 simethicone 180 mg capsule 180 mg PO TID 30 Days Qty: 90 RF: 3 Referrals: Cassie Barnett DO [Primary Care Provider] - 2 days
[2021-05-13] MEDS: Azithromycin 500 MG TABLET PO (13:56)
[2021-05-13] MEDS: predniSONE 20 MG TABLET 60 MG PO (13:56)
[2021-05-13] MEDS: Albuterol/Iprat 2.5/0.5MG 3 ML AMPUL.NEB INHALE (14:06)
[2021-05-13] MEDS: Albuterol Sulfate (0.083%) 2.5 MG/3 ML VIAL.NEB INHALE (14:06)
[2021-05-13 14:10] VITALS: PULSE 64; O2SAT 100
== END 2021-05-13 15:03 | disposition home or self-care (01) ==
PROVIDERS: Emergency Provider Emergency Medicine; PCP Family Medicine
DX: J45.901 Unspecified asthma with (acute) exacerbation (principal); J32.0 Chronic maxillary sinusitis; Z20.822 Contact with and (suspected) exposure to COVID-19
CPT/HCPCS: 0241U; 36415; 71045; 94640; 94644; 99283; 99284

== ENCOUNTER → 2021-05-21 12:47 | Outpatient (BNVA) | payer MEDICAID, SELFPAY | PROVIDERS: PCP Family Medicine; Visit Provider Nurse Practitioner Family | DX: M54.50 Low back pain, unspecified (principal); M79.7 Fibromyalgia | CPT/HCPCS: 99212 ==

== ENCOUNTER 2021-05-23 06:38 | Outpatient (REF) | payer MEDICAID, SELFPAY | END 2021-05-23 06:39 | disposition home or self-care (01) | LOC: HO.HOSX 06:38 | PROVIDERS: Visit Provider Physician Assistant | DX: Z13.89 Encounter for screening for other disorder (principal) ==

== ENCOUNTER 2021-05-30 11:28 | Outpatient (REF) | payer MEDICAID, SELFPAY ==
--- NOTE | ~2021-05-30 | XR_ITS ---
EXAMINATION: XR ANKLE, LEFT XR FOOT, LEFT CLINICAL INFORMATION: Lateral left foot and ankle pain. COMPARISON: Left foot 07/21/2020. TECHNIQUE: 3 views of the left ankle. 3 views of the left foot. FINDINGS: The ankle mortise is preserved. No fracture. No radiopaque foreign body. No significant degenerative findings. XR/XR ankle LT min 3V IMPRESSION: Unremarkable radiographs of the left foot and ankle.
--- NOTE | ~2021-05-30 | XR_ITS ---
EXAMINATION: XR ANKLE, LEFT XR FOOT, LEFT CLINICAL INFORMATION: Lateral left foot and ankle pain. COMPARISON: Left foot 07/21/2020. TECHNIQUE: 3 views of the left ankle. 3 views of the left foot. FINDINGS: The ankle mortise is preserved. No fracture. No radiopaque foreign body. No significant degenerative findings. XR/XR foot LT min 3V IMPRESSION: Unremarkable radiographs of the left foot and ankle.
== END 2021-05-30 11:29 | disposition home or self-care (01) ==
LOC: HO.XRAY 11:28
PROVIDERS: Absent Provider Family Medicine; PCP Family Medicine; Visit Provider Emergency Medicine
DX: M25.572 Pain in left ankle and joints of left foot (principal)
CPT/HCPCS: 73610; 73630

== ENCOUNTER 2021-09-19 12:33 | Outpatient (REF) | payer MEDICAID, SELFPAY ==
--- NOTE | ~2021-09-19 | XR_ITS ---
EXAMINATION: XR FOOT, LEFT CLINICAL INFORMATION: Pain COMPARISON: None TECHNIQUE: AP, lateral, and oblique views of the left foot. FINDINGS: No acute fracture or dislocation. Small marginal osteophytes along the first metatarsophalangeal joint. No erosive changes. Soft tissues unremarkable. XR/XR foot LT min 3V IMPRESSION: No acute findings. Minimal degenerative change of the first metatarsophalangeal joint.
== END 2021-09-19 12:34 | disposition home or self-care (01) ==
LOC: HO.HOSX 12:33
PROVIDERS: Visit Provider Physician Assistant
DX: M76.72 Peroneal tendinitis, left leg (principal); M21.41 Flat foot [pes planus] (acquired), right foot; M21.42 Flat foot [pes planus] (acquired), left foot
CPT/HCPCS: 73630; 99212

== ENCOUNTER → 2021-10-08 20:26 | Outpatient (REF) | payer MEDICAID, SELFPAY | LOC: HO.SL 20:26 | PROVIDERS: Visit Provider Family Medicine | DX: G47.30 Sleep apnea, unspecified (principal) | CPT/HCPCS: 95810 ==

== ENCOUNTER → 2021-10-30 13:08 | Outpatient (BNVA) | payer MEDICAID, SELFPAY | PROVIDERS: PCP Family Medicine; Referring Provider Family Medicine; Visit Provider Nurse Practitioner Family | DX: I25.10 Atherosclerotic heart disease of native coronary artery without angina pectoris (principal); R00.2 Palpitations; R94.39 Abnormal result of other cardiovascular function study; E78.5 Hyperlipidemia, unspecified | CPT/HCPCS: 93005; 99212 ==

== ENCOUNTER 2021-11-05 10:41 | Outpatient (REF) | payer MEDICAID, SELFPAY ==
[2021-11-05 12:28] LABS: Alanine Aminotransferase 19 U/L (0-31); Albumin Level 4.1 g/dL (3.5-5.0); Alkaline Phosphatase 51 U/L (39-117); Anion Gap 10 (12-20); Aspartate Amino Transferase 13 U/L (5-31); Bilirubin Total 0.4 mg/dL (0.0-1.0); Blood Urea Nitrogen 9 mg/dL (9-16); Calcium 9.4 mg/dL (8.4-10.2); Carbon Dioxide 22 mmol/L (22-29); Chloride 108 mmol/L (96-108); Cholesterol 401 mg/dL; Estimated Glomerular Filt Rate > 60; Glucose Fasting 95 mg/dL (60-99); HDL Cholesterol 49 mg/dL; LDL Cholesterol Calculated 308 mg/dl; Potassium 4.4 mmol/L (3.3-5.1); Sodium 136 mmol/L (135-145); Total Protein 7.5 g/dL (6.5-8.0); Triglycerides 223 mg/dL
[2021-11-05 12:50] LABS: Thyroid Stimulating Hormone 1.05 uIU/mL (0.32-4.0)
== END 2021-11-05 10:42 | disposition home or self-care (01) ==
LOC: HO.LAB 10:41
PROVIDERS: PCP Family Medicine; Visit Provider Nurse Practitioner Family
DX: R00.2 Palpitations (principal); I25.10 Atherosclerotic heart disease of native coronary artery without angina pectoris; E78.5 Hyperlipidemia, unspecified
CPT/HCPCS: 36415; 80053; 80061; 84443

== ENCOUNTER → 2021-11-19 10:51 | Outpatient (REF) | payer MEDICAID, SELFPAY ==
--- NOTE | 2021-11-19 10:55 | HM_ITS ---
REQUESTING PROVIDER: Audelia Carney. REASON FOR TEST: Palpitation. INTERPRETATION: The patient had a cardiac event monitor hooked up from 11/21/2021 to 12/15/2021 for a total period of 24 days. FINDINGS: Baseline rhythm was normal sinus rhythm with heart rate ranging from 83 to 92 beats per minute. There is one 3-beat episode of nonsustained VT noted at 150 beats per minute. The patient had no reported symptoms during the entire event monitor. CONCLUSION: Although reports remarkable. 1. Baseline normal sinus rhythm. 2. One 3-beat cruz of nonsustained VT at 150 beats per minute. 3. No patient reported events. Sunny Grimes MD NRS/MODL / [id number]
== END ==
LOC: HO.CARD 10:51
PROVIDERS: PCP Family Medicine; Visit Provider Nurse Practitioner Family
DX: R00.2 Palpitations (principal)
CPT/HCPCS: 93270

== ENCOUNTER 2021-12-12 09:23 | Outpatient (REF) | payer MEDICAID, SELFPAY ==
--- NOTE | 2021-12-12 09:34 | EMG_ITS ---
HISTORY OF PRESENT ILLNESS: This is a 46-year-old woman with pain and numbness in the left lower extremity. PHYSICAL EXAMINATION: On examination, she is alert and oriented with normal intellectual functions. Cranial nerves II through XII are normal. Muscle tone and strength are normal in all 4 extremities. Deep tendon reflexes symmetrical. Plantar responses flexor. IMPRESSION: Rule out lumbar radiculopathy. Nerve conduction EMG study: Normal electrodiagnostic study of both lower extremities except for mildly prolonged distal motor latencies in the tibial nerves that may suggest early entrapment in the tarsal tunnel. No evidence of diffuse neuropathy or lumbar radiculopathy. Normal EMG in the left L4-S1 innervated muscles. MD QUEENIE Weaver/BETTY / [id number]
== END 2021-12-12 09:24 | disposition home or self-care (01) ==
LOC: HO.NEURO 09:23
PROVIDERS: Visit Provider Family Medicine
DX: M54.42 Lumbago with sciatica, left side (principal)
CPT/HCPCS: 95885; 95911

== ENCOUNTER 2022-01-10 10:15 | Outpatient (REF) | payer MEDICAID, SELFPAY ==
[2022-01-10 11:23] LABS: C Reactive Protein 0.99 mg/dL (< or = 0.50); Cholesterol 208 mg/dL; HDL Cholesterol 43 mg/dL; LDL Cholesterol Calculated 129 mg/dl; Triglycerides 182 mg/dL
[2022-01-10 11:30] LABS: Erythrocyte Sedimentation Rate 16 MM/HR (0-20)
== END 2022-01-10 10:16 | disposition home or self-care (01) ==
LOC: HO.LAB 10:15
PROVIDERS: Nurse Practitioner Family; PCP Family Medicine; Visit Provider Nurse Practitioner Family
DX: I25.10 Atherosclerotic heart disease of native coronary artery without angina pectoris (principal); E78.5 Hyperlipidemia, unspecified; M54.9 Dorsalgia, unspecified
CPT/HCPCS: 36415; 80061; 85652; 86140

== ENCOUNTER 2022-01-23 16:51 | Emergency (ER) | payer MEDICAID, SELFPAY | END 2022-01-23 18:23 | disposition left against medical advice (07) | PROVIDERS: Emergency Provider Emergency Medicine | DX: R10.31 Right lower quadrant pain (principal) ==

== ENCOUNTER → 2022-05-01 13:57 | Outpatient (BNVA) | payer MEDICAID, SELFPAY | PROVIDERS: PCP Family Medicine; Visit Provider Nurse Practitioner Family | DX: R94.39 Abnormal result of other cardiovascular function study (principal); I25.10 Atherosclerotic heart disease of native coronary artery without angina pectoris; R00.2 Palpitations; E78.5 Hyperlipidemia, unspecified | CPT/HCPCS: 99212 ==

== ENCOUNTER 2023-12-24 08:56 | Outpatient (REF) | payer MEDICAID, SELFPAY ==
[2023-12-24 10:57] LABS: MANUAL DIFF FLAG NO
[2023-12-24 11:11] LABS: Basophils Percent Auto 0.6 % (0-2); Eosinophils Absolute Auto 0.1 X10*3/uL (0.0-0.4); Eosinophils Percent Auto 1.4 % (0-4); Hematocrit 43.5 % (37.0-47.0); Hemoglobin 14.4 g/dl (12.0-16.0); Imm Gran Abs Auto 0.01 X10*3/uL (0.00-0.03); Imm Gran Pct Auto 0.2 % (0.0-0.4); Lymphocytes Absolute Auto 2.3 X10*3/uL (1.2-4.9); Mean Corpuscular HGB Conc 33.1 g/dl (31.0-35.0); Mean Corpuscular Hemoglobin 29.6 pg (27.0-33.0); Mean Corpuscular Volume 89.3 fL (80.0-98.0); Mean Platelet Volume 9.7 fL (9.4-12.3); Monocytes Absolute Auto 0.4 X10*3/uL (0.1-1.2); Monocytes Percent Auto 7.3 % (2-11); Neutrophils Absolute Auto 2.3 x10*3/uL (2.0-8.3); Neutrophils Percent Auto 45.5 % (45-73); Platelet Count 314 X10*3/uL (160-400); Red Blood Count 4.87 X10*6/uL (4.20-5.50); Red Cell Distribution Width 14.8 % (11.0-16.0); White Blood Count 5.1 X10*3/uL (4.8-10.8)
[2023-12-24 11:45] LABS: Alanine Aminotransferase 17 U/L (0-31); Alkaline Phosphatase 51 U/L (39-117); Anion Gap 11 (12-20); Aspartate Amino Transferase 14 U/L (5-31); Bilirubin Total 0.2 mg/dL (0.0-1.0); Blood Urea Nitrogen 11 mg/dL (9-16); C Reactive Protein 0.81 mg/dL (< or = 0.50); Calcium 9.3 mg/dL (8.4-10.2); Carbon Dioxide 23 mmol/L (22-29); Chloride 108 mmol/L (96-108); Cholesterol 335 mg/dL (<200); Estimated Glomerular Filt Rate > 60; Glucose Random 97 mg/dL (60-115); HDL Cholesterol 46 mg/dL (>40); LDL Cholesterol Calculated 241 mg/dL (<100); Potassium 4.1 mmol/L (3.3-5.1); Sodium 138 mmol/L (135-145); TSH reflex Free T4 0.64 uIU/mL (0.32-4.0); Total Protein 7.7 g/dL (6.5-8.0); Triglycerides 244 mg/dL (<150); Vitamin D 25-OH Total 28.1 ng/mL (>30)
[2023-12-24 11:47] LABS: Erythrocyte Sedimentation Rate 14 MM/HR (0-20)
[2023-12-24 11:55] LABS: Folate 9.8 ng/mL (> or = 4.0); Vitamin B12 482 pg/mL (200-900)
[2023-12-24 12:23] LABS: Reflex LDLD? No
[2024-01-01 16:13] LABS: Anti Nuclear Antibody Screen NEGATIVE (NEGATIVE)
== END 2023-12-24 08:57 | disposition home or self-care (01) ==
LOC: HO.HHCL 08:56
PROVIDERS: Visit Provider Internal Medicine
DX: M79.7 Fibromyalgia (principal); I10 Essential (primary) hypertension; E55.9 Vitamin D deficiency, unspecified; I25.10 Atherosclerotic heart disease of native coronary artery without angina pectoris
CPT/HCPCS: 36415; 80053; 80061; 82306; 82550; 82607; 82746; 84443; 85025; 85652; 86038; 86140

== ENCOUNTER 2024-01-09 09:07 | Outpatient (REF) | payer MEDICAID, SELFPAY ==
--- NOTE | ~2024-01-09 | MM_ITS ---
EXAMINATION: MM SCREENING DIGITAL BREAST TOMOSYNTHESIS, BILATERAL CLINICAL INFORMATION: Screening. Asymptomatic. COMPARISON: Mammography: This study is compared with prior exams dating back to 2019. TECHNIQUE: Digital breast tomosynthesis is performed in both the craniocaudal and mediolateral oblique views along with computer-aided detection (CAD). Synthesized 2D images are generated from the tomosynthesis. FINDINGS: There are scattered areas of fibroglandular density (ACR BI-RADS breast composition Category b). There are no significant masses, abnormal calcifications, or other abnormalities. There is a tissue marker in the right breast from prior benign percutaneous biopsy. It is associated with an upper outer quadrant, oval, benign mass. MM/MM tomosynthesis screening BI IMPRESSION: No mammographic evidence of malignancy. ASSESSMENT: BI-RADS BI-RADS 2 - Benign Findings RECOMMENDATION: Routine annual mammography screening. 1 year F/U This examination should not preclude the clinical evaluation of a suspicious palpable abnormality. This patient's information was entered into a reminder system with a target due date for their next mammogram.
== END 2024-01-09 09:08 | disposition home or self-care (01) ==
LOC: HO.MAMMO 09:07
PROVIDERS: PCP Family Medicine; Visit Provider Family Medicine
DX: Z12.31 Encounter for screening mammogram for malignant neoplasm of breast (principal)
CPT/HCPCS: 77063; 77067

== ENCOUNTER → 2024-01-09 09:15 | Outpatient (BNV) | payer MEDICAID, SELFPAY | PROVIDERS: PCP Family Medicine; Visit Provider Radiology Diagnostic Radiology | DX: Z12.31 Encounter for screening mammogram for malignant neoplasm of breast (principal) | CPT/HCPCS: 77063; 77067 ==

== ENCOUNTER 2024-01-19 15:23 | Outpatient (AMB) | payer MEDICAID, SELFPAY ==
--- NOTE | 2024-01-19 15:26 | A.OFFVIS_ITS ---
Vital Signs 01/19/24 15:27 Height 5 ft 5 in Weight 200 lb 9.93 oz BMI 33.4 BP 120/78 Blood Pressure Location Lt brachial Position Sitting Pulse 78 Intake Visit Reasons: f/up Intake Note: Follow-up after about 3 years had ekg at [facility] 01/06 c/o little quick chest pains a few times a day unaware of current med's reviewed with her pharmacist Pan Shover Required: Yes Pan Shover Services: Pan Shover Present Pan Shover Name: [facility] Allergies No Known Allergies Allergy (Verified 05/01/22 13:59) Medication List - Last Reconciled 01/19/24 by Sunny Grimes MD acetaminophen 325 mg PO QID PRN albuterol sulfate 90 mcg/actuation (ProAir HFA) 2 puffs inhalation 6XD amitriptyline 25 mg PO BEDTIME [Anti-pronation orthotics Anti-pronation orthotics] aspirin (Adult Low Dose Aspirin) 81 mg PO DAILY clonidine HCl 0.1 mg PO BID ergocalciferol (vitamin D2) 1,250 mcg PO QWEEK fluticasone propionate 110 mcg/actuation (Flovent HFA) 1 puff inhalation BID gabapentin 600 mg PO TID lisinopril 10 mg PO QAM montelukast (Singulair) 10 mg PO DAILY omeprazole 20 mg PO oxcarbazepine 600 mg PO BID perphenazine 1.5 tablets PO BID; rosuvastatin 40 mg PO BEDTIME sumatriptan succinate (Imitrex) take 1 tab at onset of headache; if no relief may repeat 1 tab after at least 2 hrs; max = 2 tabs/24 hr PO tramadol 50 mg PO Q8H PRN zolpidem 10 mg PO BEDTIME PRN HPI Comments Details: Marcela comes after a long gap. History obtained with help of parts washer. Patient says she had moved to [place] and stayed there for prolonged period time. She says she was not getting medicines that including Crestor. Most recent lipid panel, LDL up to 240 mg/dL. She also had never started PCSK9 inhibitor therapy before going. Her medicines were all not up-to-date. She came back to [facility] to get better treatment. She says she was not getting adequate treatment in [place]. She was restarted on rosuvastatin 40 mg 2 weeks ago which she has been taking. Unfortunately she has been getting some symptoms of exertional shortness of breath. However she says when she also over exerts herself she gets chest pain in the retrosternal area radiating inframammary to the ribcage. Symptoms subside the resting. No symptoms at rest. Denies any orthopnea, PND, leg edema. No lightheadedness, syncope. [facility] Medical History Pes planus of both feet Hyperlipidemia CAD (coronary artery disease) Fibromyalgia Surgical History S/P tubal ligation Hx of cardiac cath (04/15/18) Hx of section History of carpal tunnel surgery Hx of removal of cyst History of esophagogastroduodenoscopy (EGD) (11/22/14) History of surgery on wrist Family History Maternal Grandmother History of breast cancer Maternal Grandfather History of liver cancer Father CVD (cardiovascular disease) Mother HTN (hypertension) Diabetes Rheumatoid arthritis Fibromyalgia Social History Household Members: None Housing: Apartment Alcohol intake: current Alcohol intake frequency: does not drink Substance Use Type: Marijuana Review of Systems Const Denies chills, Denies fatigue, Denies fever(s), Denies frequent falls, Denies weakness, Denies weight gain and Denies weight loss ENT Denies dizziness Card Denies chest pain, Denies leg edema, Denies lightheadedness, Denies palpitations, Denies dyspnea, Denies dyspnea on exertion, Denies orthopnea and Denies other (loss of consciousness) Resp Denies cough, Denies dyspnea and Denies dyspnea on exertion GI Denies hematochezia and Denies change in stool character Musc Denies abnormal gait, Denies muscle weakness, Denies numbness, Denies radiating pain into limb and Denies tingling Neuro Denies abnormal gait, Denies dizziness, Denies frequent falls, Denies numbness, Denies tingling and Denies weakness Endo Denies fatigue and Denies palpitations Physical Exam Vital Signs: Last Vital Signs Pulse 78 01/19/24 15:27 BP 120/78 01/19/24 15:27 BMI result Body Mass Index 33.4 Const General: cooperative, healthy appearing, comfortable and no acute distress Orientation/consciousness: patient oriented x3 Neck Neck: Yes normal visual inspection Resp Effort & Inspection: normal respiratory effort Auscultation: clear to auscultation bilaterally, no crackles, no rales, no rhonchi and no wheezes Cardio Jugular venous distension: no JVD Rate: regular rate Rhythm: regular rhythm Heart sounds: S1 normal heart sound present, S2 normal heart sound present, no gallops, no murmurs and no rubs Peripheral pulses: Peripheral pulses 2+ throughout Neuro General: patient oriented x3 Extrem General: Yes normal to inspection Psych Appearance: grossly normal Mental Status: mental status grossly normal Speech and movement: Normal speech and movement present Assessment & Plan Assessment & Plan (1) Chest pain: Code(s): R07.9 - Chest pain, unspecified Category: Medical Plan: Atypical chest pain with some episodes of exertional chest pain question related to anxiety/stress. She has diffuse small-vessel coronary artery disease by prior cardiac catheterization. She has untreated marked hyperlipidemia and progressive coronary artery disease highly likely although not sure what the treatment approach would be given small-vessel disease. However need to pursued to evaluate for myocardial ischemia. Would suggest vasodilating myocardial perfusion imaging for further evaluation for significant myocardial ischemia that may require alternative approach. Also suggest echocardiogram given her multiple risk factors to evaluate LV systolic and diastolic function to hypertensive heart disease. She requires aggressive management of lipids. Suggest to start Repatha every 2 weeks injected therapy. Follow-up lipid panel in 2 months time. Will follow up in the clinic in 2 months time after testing as well as after lipid panel. Thank you for allowing me to partake in his care. Orders: Orders CA lexiscan stress w corazon Today I25.10 - Atherosclerotic heart disease of [place] coronary artery without angina pectoris, R07.9 - Chest pain, unspecified Lipid Panel 2 Months I25.10 - Atherosclerotic heart disease of [place] coronary artery without angina pectoris CA echo transthoracic complete Today R07.9 - Chest pain, unspecified Medications: New evolocumab (Repatha SureClick) 140 mg subcut Q2W 2 mL 5RF R07.9 - Chest pain, unspecified Coding Level of Care Code Est Pt Level 4 (60399) Diagnoses Chest pain R07.9
[2024-01-19 15:27] VITALS: BP 120/78; PULSE 78; BMI 33.4
== END 2024-01-19 16:23 | disposition home or self-care (01) ==
PROVIDERS: PCP Family Medicine; Referring Provider Family Medicine; Visit Provider Internal Medicine Cardiovascular Disease
DX: R07.9 Chest pain, unspecified (principal)
CPT/HCPCS: 99214

== ENCOUNTER → 2024-01-19 15:23 | Outpatient (BNVA) | payer MEDICAID, SELFPAY | PROVIDERS: PCP Family Medicine; Visit Provider Internal Medicine Cardiovascular Disease | DX: I25.10 Atherosclerotic heart disease of native coronary artery without angina pectoris (principal); R07.9 Chest pain, unspecified | CPT/HCPCS: 99212 ==

== ENCOUNTER 2024-02-13 09:16 | Outpatient (REF) | payer MEDICAID, SELFPAY ==
--- NOTE | ~2024-02-13 | US_ITS ---
EXAMINATION: US ABDOMEN COMPLETE CLINICAL INFORMATION: Follow-up fatty liver. COMPARISON: Ultrasound renal 01/01/2021. CT abdomen and pelvis 12/04/2020. Ultrasound abdomen 10/25/2020. TECHNIQUE: Real-time imaging of the abdominal viscera. FINDINGS: PANCREAS: Most of the pancreas is obscured by bowel gas and cannot be adequately evaluated. ABDOMINAL AORTA: The proximal, mid, and distal segments are normal in caliber. INFERIOR VENA CAVA: Visualized portions are normal. LIVER: The liver is enlarged measuring 17.7 cm in greatest length. The liver contour is normal. Echogenicity is borderline increased. No focal hepatic lesion. There is no intrahepatic biliary duct dilatation seen. GALLBLADDER: Normal. The gallbladder is physiologically distended without evidence of stones, sludge, polyps, wall thickening or pericholecystic fluid. COMMON BILE DUCT: Normal in caliber measuring 0.5 cm in diameter. RIGHT KIDNEY: Normal. No hydronephrosis. No renal calculi or focal parenchymal lesions. The kidney measures 10.2 cm in maximum dimension. LEFT KIDNEY: Normal. No hydronephrosis. No renal calculi or focal parenchymal lesions. The kidney measures 10.3 cm in maximum dimension. SPLEEN: Normal. The spleen measures 7.9 cm in maximum dimension. FREE FLUID: None. US/US abdomen complete IMPRESSION: Enlarged probable fatty liver. Electronically signed by: Jeremy Verdugo MD 02/24/2024 10:43 AM EDT
== END 2024-02-13 09:17 | disposition home or self-care (01) ==
LOC: HO.US 09:16
PROVIDERS: PCP Family Medicine; Visit Provider Family Medicine
DX: K76.0 Fatty (change of) liver, not elsewhere classified (principal)
CPT/HCPCS: 76700

== ENCOUNTER → 2024-02-19 12:50 | Outpatient (REF) | payer MEDICAID, SELFPAY ==
--- NOTE | 2024-02-19 12:52 | CA_ITS ---
Transthoracic Echocardiogram Patient (Last, First, Middle): Marcela Lopez, Gender: Female Date of : 1975 Age: 48 Procedure Date: 02/19/2024 Procedure Type: Transthoracic Echocardiogram Location: OP Height: 165. cm Weight: 84.82 kg BSA: 1.92 m2 Heart Rate: 60 bpm BP: 130 / 90 mmHg Rfid Strategist: MIRIAM Referring MD: Sunny Grimes MD Symptoms: R07.9 - Chest pain, unspecified Study Quality: Fair ECG Rhythm: Sinus Conclusions: - The left ventricular systolic function is normal. The visually estimated ejection fraction is between 55-60%. - No obvious valvular pathology seen on this study. Findings Left Ventricle Normal left ventricular cavity size. There is normal left ventricular wall thickness. The left ventricular systolic function is normal. The visually estimated ejection fraction is between 55-60%. There is no evidence of regional wall motion abnormalities. Diastolic function is normal for age. Right Ventricle Normal right ventricular cavity size and systolic function. Atria Both atria are normal in size. Aortic Valve There is a normal trileaflet aortic valve. There is no aortic valve stenosis. There is no aortic valve regurgitation. Mitral Valve The mitral valve appears normal. There is no mitral valve regurgitation. There is no mitral valve stenosis. Pulmonic Valve The pulmonic valve is likely normal. Tricuspid Valve There is trace tricuspid valve regurgitation. There is no evidence of pulmonary hypertension. Great Vessels The asc aorta is normal in size. Venous The inferior vena cava is normal in size and collapses greater than 50% with inspiration. Pericardium/Pleural There is no evidence of pericardial effusion. Prior Study Comparison No significant change compared to prior study dated: 03/01/2021. Recommendations, Care & Conclusions No obvious valvular pathology seen on this study. Measurements 2D Linear Measurements IVSd: 0.76 0.6-0.9/0.6-1.0 cm LVIDd: 4.39 3.9-5.3/4.2-5.9 cm LVIDd Index: 2.29 2.4-3.2/2.2-3.1 cm/m2 LVIDs: 3.29 2.0-3.6 cm LVPWd: 0.95 0.7-1.1 cm LA Diam: 3.50 2.7-3.8/3.0-4.0 cm LAIDs Index: 1.82 1.5-2.3 cm/m2 LV Mass: 147.03 67-162/88-224 g LV Mass Index: 76.58 43-95/49-115 g/m2 LVOT Diam: 1.80 3.0+(-)1.3 cm 2D Systolic Function EF 4C: 62.20 >55% EF 2C: 63.80 >55% EF BiP: 63.10 >55% Mitral Valve MV Pk E: 0.84 MV PK A: 0.62 MV Decel Time: 181.00 E/A: 1.30 E'Lateral: 15.10 E'Medial: 10.10 E/E' Med: 8.30 E/E' Lat: 5.50 PHT: 53.00 MVA PHT: 4.15 Decel Norman: 4.61 Aortic Valve AoV Pk Nino: 1.33 AoV Mn Nino: 0.91 AoV VTI: 0.29 AoV Pk Grad: 7.00 Aov Mn Grad: 4.00 IRA Cont.VTI: 2.34 LVOT LVOT Pk Nino: 1.27 LVOT Mn Nino: 0.86 LVOT VTI: 0.27 LVOT Pk Grad: 6.00 LVOT Mn Grad: 3.00 LVOT Diam: 1.80 LVOT Area: 2.54 Diastolic Function MV Pk E: 0.84 MV Pk A: 0.62 E/A: 1.30 E'Medial: 10.10 E/E' Med: 8.30 E' Laterial: 15.10 E/E' Lat: 5.50 Right Ventricle TAPSE (mm): 18.90 TVS' Nino: 10.40 Tricuspid Valve TR Pk Nino: 1.44 TR Pk Grad: 8.00 RA Press: 3.00 RVSP: 11.00 Great Vessels Aorta Sinus of Valsalva: 2.90 2.0-3.5 cm Ao Asc: 3.20 2.1-3.4 cm Pulmonary Valve PV Pk Nino: 0.76 Peak PV Grad: 2.00 Updated in Other Vendor System with Status of Final Clay Victor MD electronically signed on 02/21/2024 1:39:42 PM with status of Final
== END ==
LOC: HO.CARD 12:50
PROVIDERS: PCP Family Medicine; Visit Provider Internal Medicine
DX: R07.9 Chest pain, unspecified (principal)
CPT/HCPCS: 93306

== ENCOUNTER → 2024-02-19 12:52 | Outpatient (BNV) | payer MEDICAID, SELFPAY | PROVIDERS: PCP Family Medicine; Visit Provider Internal Medicine | DX: R07.9 Chest pain, unspecified (principal) | CPT/HCPCS: 93306 ==

== ENCOUNTER 2024-05-19 11:16 | Emergency (ER) | payer MEDICAID, SELFPAY ==
[2024-05-19 11:25] VITALS: BP 138/94; PULSE 98; RESP 20; TEMP 29.6; O2SAT 100; BMI 31.3
--- NOTE | 2024-05-19 11:26 | ED.ABDPAIN ---
HPI - Abdominal Pain General Chief Complaint: Abdominal Pain Stated Complaint: abd pain Related Data Home Medications ?Medication ?Instructions ?Recorded ?Confirmed acetaminophen 325 mg capsule 325 mg PO QID PRN 04/05/20 01/19/24 albuterol sulfate 90 mcg/actuation 2 puff inhalation 6XD 04/05/20 01/19/24 aerosol inhaler (ProAir HFA) aspirin 81 mg tablet,delayed 81 mg PO DAILY 04/05/20 01/19/24 release (Adult Low Dose Aspirin) fluticasone propionate 110 1 puff inhalation BID 04/05/20 01/19/24 mcg/actuation HFA aerosol inhaler (Flovent HFA) montelukast 10 mg tablet 10 mg PO DAILY 04/05/20 01/19/24 (Singulair) zolpidem 10 mg tablet 10 mg PO BEDTIME PRN 04/05/20 01/19/24 ergocalciferol (vitamin D2) 1,250 1,250 mcg PO QWEEK 10/30/21 01/19/24 mcg (50,000 unit) capsule gabapentin 300 mg capsule 600 mg PO TID 10/30/21 01/19/24 omeprazole 20 mg capsule,delayed 20 mg PO 10/30/21 01/19/24 release rosuvastatin 40 mg tablet 40 mg PO BEDTIME 10/30/21 01/19/24 oxcarbazepine 300 mg tablet 600 mg PO BID 01/16/22 01/19/24 sumatriptan succinate 25 mg tablet See Rx Instructions PO .COMPLEX 01/16/22 01/19/24 (Imitrex) tramadol 50 mg tablet 50 mg PO Q8H PRN 01/16/22 01/19/24 amitriptyline 25 mg tablet 25 mg PO BEDTIME 02/22/22 01/19/24 clonidine HCl 0.1 mg tablet 0.1 mg PO BID 02/22/22 01/19/24 perphenazine 8 mg tablet See Rx Instructions .Route .COMPLEX 02/22/22 01/19/24 lisinopril 20 mg tablet 10 mg PO QAM 01/19/24 01/19/24 Previous Rx's ?Medication ?Instructions ?Recorded Anti-pronation orthotics #1 ea 09/19/21 evolocumab 140 mg/mL subcutaneous 140 mg subcut Q2W #2 mL 04/27/24 pen injector (Repatha SureClick) Allergies Allergy/AdvReac Type Severity Reaction Status Date / Time No Known Allergies Allergy Verified 05/19/24 11:29 PMFSH Past Medical History Medical History Pes planus of both feet Hyperlipidemia CAD (coronary artery disease) Fibromyalgia Surgical History S/P tubal ligation Hx of cardiac cath (04/15/18) Hx of section History of carpal tunnel surgery Hx of removal of cyst History of esophagogastroduodenoscopy (EGD) (11/22/14) History of surgery on wrist Family History Family History Maternal Grandmother History of breast cancer Maternal Grandfather History of liver cancer Father CVD (cardiovascular disease) Mother HTN (hypertension) Diabetes Rheumatoid arthritis Fibromyalgia Social History Social History Household Members: None Housing: Apartment Alcohol intake: current Alcohol intake frequency: does not drink Substance Use Type: Marijuana Advance Directives: No Advance Directives Information Provided: No Do you have a plan to hurt others: No Plan Physical Exam ED Vital Signs: BMI result Body Mass Index 31.3 Course Course Course Narrative: This is a Rapid Medical Examination (RME) performed by Tabby Guevara PA-C in triage. Full HPI, ROS, assessment and treatment plan per primary provider in the Main ED. 48 yo female with history of HTN, migraines, fibromyalgia, SCANLON, GERD, CAD who presents to the ER from [facility] for evaluation of LLQ pain that radiates to her back that started this morning at 3am, woke her up out of sleep. +increased urgency and frequency. Pain 10/10. on exam very tender left flank, LLQ with guarding. Plan: labs, UA, CT scan abd/pelvis Reevaluation(s) Reevaluation #1: patient eloped prior to obtaining CT scan, prior to completing treatment Medical Decision Making Lab Data 05/19/24 13:12 05/19/24 13:12 Labs: Lab Results 05/19/24 Range/Units 13:12 WBC 5.8 (4.8-10.8) X10*3/uL RBC 4.64 (4.20-5.50) X10*6/uL Hgb 14.3 (12.0-16.0) g/dl Hct 41.8 (37.0-47.0) % MCV 90.1 (80.0-98.0) fL MCH 30.8 (27.0-33.0) pg MCHC 34.2 (31.0-35.0) g/dl RDW 14.6 (11.0-16.0) % Plt Count 326 (160-400) X10*3/uL MPV 9.2 L (9.4-12.3) fL Immature Gran % (Auto) 0.2 (0.0-0.4) % Neut % (Auto) 37.9 L (45-73) % Lymph % (Auto) 53.0 H (20-40) % [place] % (Auto) 6.9 (2-11) % Eos % (Auto) 1.7 (0-4) % Baso % (Auto) 0.3 (0-2) % Lymph # (Auto) 3.1 (1.2-4.9) X10*3/uL [place] # (Auto) 0.4 (0.1-1.2) X10*3/uL Eos # (Auto) 0.1 (0.0-0.4) X10*3/uL Baso # (Auto) 0.0 (0.0-0.2) X10*3/uL Abs Immat Gran (auto) 0.01 (0.00-0.03) X10*3/uL Absolute Neuts (auto) 2.2 (2.0-8.3) x10*3/uL Absolute Nucleated RBC 0.000 (0.0-0.012) X10*3/uL Nucleated RBC % (auto) 0.0 (0.0-0.2) /100WBC Sodium 139 (135-145) mmol/L Potassium 3.8 (3.3-5.1) mmol/L Chloride 107 (96-108) mmol/L Carbon Dioxide 28 (22-29) mmol/L Anion Gap 8 L (12-20) BUN 8 L (9-16) mg/dL Creatinine 0.76 (0.5-1.4) mg/dL Estim Creat Clear Calc 97.6 Estimated GFR > 60 Random Glucose 82 (60-115) mg/dL Calcium 9.3 (8.4-10.2) mg/dL Magnesium 2.1 (1.6-2.6) mg/dL Total Bilirubin 0.2 (0.0-1.0) mg/dL Direct Bilirubin < 0.2 (0.0-0.5) mg/dL AST 18 (5-31) U/L ALT 25 (0-31) U/L Alkaline Phosphatase 50 (39-117) U/L Total Protein 7.5 (6.5-8.0) g/dL Albumin 4.0 (3.5-5.0) g/dL Lipase 31 (8-78) U/L Beta HCG, Quant < 2 mIU/mL Urine Color Yellow Urine Appearance Clear Urine pH 6.5 (5.0-9.0) Ur Specific [place] 1.015 (1.005-1.025) Urine Protein Negative (Neg-Trace) mg/dL Urine Glucose (UA) Negative (Negative) mg/dL Urine Ketones Negative (Negative) mg/dL Urine Blood Trace H (Negative) Urine Nitrite Negative (Negative) Ur Leukocyte Esterase Negative (Negative) Urine RBC 0-2 (0-2) /HPF Urine WBC 0-5 (0-5) /HPF Ur Squamous Epith Cells 6-10 (0-2) /HPF Urine Bacteria None Seen (None Seen) Hyaline Casts 0-2 (0-2) /LPF Discharge Plan Discharge Clinical Impression: Abdominal pain Patient Disposition: Left W/O Completing Treatment Prescriptions: No Action sumatriptan succinate [Imitrex] 25 mg tablet See Rx Instructions PO .COMPLEX Rx Instructions: take 1 tab at onset of headache; if no relief may repeat 1 tab after at least 2 hrs; max = 2 tabs/24 hr PO tramadol 50 mg tablet 50 mg PO Q8H PRN oxcarbazepine 300 mg tablet 600 mg PO BID perphenazine 8 mg tablet See Rx Instructions .ROUTE .COMPLEX Rx Instructions: 1.5 tablets PO BID; amitriptyline 25 mg tablet 25 mg PO BEDTIME clonidine HCl 0.1 mg tablet 0.1 mg PO BID Repatha SureClick 140 mg/mL pen injector 140 mg subcut Q2W Qty: 2 2RF zolpidem 10 mg tablet 10 mg PO BEDTIME PRN aspirin [Adult Low Dose Aspirin] 81 mg tablet,delayed release (DR/EC) 81 mg PO DAILY Flovent HFA 110 mcg/actuation HFA aerosol inhaler 1 puff inhalation BID acetaminophen 325 mg capsule 325 mg PO QID PRN albuterol sulfate [ProAir HFA] 90 mcg/actuation HFA aerosol inhaler 2 puff inhalation 6XD montelukast [Singulair] 10 mg tablet 10 mg PO DAILY (DME) Anti-pronation orthotics See Rx Instructions .ROUTE .MEDSUPPLY Qty: 1 0RF Rx Instructions: Anti-pronation orthotics rosuvastatin 40 mg tablet 40 mg PO BEDTIME ergocalciferol (vitamin D2) 1,250 mcg (50,000 unit) capsule 1,250 mcg PO QWEEK omeprazole 20 mg capsule,delayed release(DR/EC) 20 mg PO gabapentin 300 mg capsule 600 mg PO TID lisinopril 20 mg tablet 10 mg PO QA Discharge Date/Time: 05/19/24 21:10
[2024-05-19 13:21] LABS: MANUAL DIFF FLAG NO
[2024-05-19 13:24] LABS: Basophils Percent Auto 0.3 % (0-2); Eosinophils Absolute Auto 0.1 X10*3/uL (0.0-0.4); Eosinophils Percent Auto 1.7 % (0-4); Hematocrit 41.8 % (37.0-47.0); Hemoglobin 14.3 g/dl (12.0-16.0); Imm Gran Abs Auto 0.01 X10*3/uL (0.00-0.03); Imm Gran Pct Auto 0.2 % (0.0-0.4); Lymphocytes Absolute Auto 3.1 X10*3/uL (1.2-4.9); Mean Corpuscular HGB Conc 34.2 g/dl (31.0-35.0); Mean Corpuscular Hemoglobin 30.8 pg (27.0-33.0); Mean Corpuscular Volume 90.1 fL (80.0-98.0); Mean Platelet Volume 9.2 fL (9.4-12.3); Monocytes Absolute Auto 0.4 X10*3/uL (0.1-1.2); Monocytes Percent Auto 6.9 % (2-11); Neutrophils Absolute Auto 2.2 x10*3/uL (2.0-8.3); Neutrophils Percent Auto 37.9 % (45-73); Platelet Count 326 X10*3/uL (160-400); Red Blood Count 4.64 X10*6/uL (4.20-5.50); Red Cell Distribution Width 14.6 % (11.0-16.0); White Blood Count 5.8 X10*3/uL (4.8-10.8)
[2024-05-19 13:26] LABS: Appearance Urine Clear; Color Urine Yellow; Glucose Urine UA Negative (Negative); Leukocyte Esterase Urine Negative (Negative); Nitrite Urine Negative (Negative); PH 6.5 (5.0-9.0); Specific Gravity - Urine 1.015 (1.005-1.025); UMIC TRIGGER UACC YES; Urine Blood Trace (Negative); Urine Ketones Negative (Negative); Urine Protein Negative (Neg-Trace)
[2024-05-19 13:38] LABS: Bacteria Urine None Seen (None Seen); Hyaline Casts Urine 0-2 /LPF (0-2); RBC Urine 0-2 /HPF (0-2); WBC Urine 0-5 /HPF (0-5)
[2024-05-19 13:42] LABS: Alanine Aminotransferase 25 U/L (0-31); Alkaline Phosphatase 50 U/L (39-117); Anion Gap 8 (12-20); Aspartate Amino Transferase 18 U/L (5-31); Bilirubin Direct < 0.2 mg/dL (0.0-0.5); Bilirubin Total 0.2 mg/dL (0.0-1.0); Blood Urea Nitrogen 8 mg/dL (9-16); Calcium 9.3 mg/dL (8.4-10.2); Carbon Dioxide 28 mmol/L (22-29); Chloride 107 mmol/L (96-108); Creatinine Clr Calc Pharmacy 97.6; Estimated Glomerular Filt Rate > 60; Glucose Random 82 mg/dL (60-115); Magnesium 2.1 mg/dL (1.6-2.6); Potassium 3.8 mmol/L (3.3-5.1); Sodium 139 mmol/L (135-145); Total Protein 7.5 g/dL (6.5-8.0)
[2024-05-19 13:44] LABS: HCG Quantitative < 2 mIU/mL; Lipase 31 U/L (8-78)
== END 2024-05-19 21:10 | disposition left against medical advice (07) ==
LOC: HO.ED 20:50
PROVIDERS: Physician Assistant; Emergency Provider Emergency Medicine Emergency Medical Services; PCP Family Medicine
DX: R10.32 Left lower quadrant pain (principal)
CPT/HCPCS: 36415; 80048; 80076; 81001; 83690; 83735; 84702; 85025; 99282; 99283

== ENCOUNTER → 2024-07-22 08:04 | Outpatient (BNV) | payer MEDICAID, SELFPAY | PROVIDERS: PCP Family Medicine | DX: R06.02 Shortness of breath (principal); R07.9 Chest pain, unspecified | CPT/HCPCS: 78452; 93016; 93018 ==

== ENCOUNTER 2024-07-24 09:03 | Outpatient (REF) | payer MEDICAID, SELFPAY ==
[2024-07-24 11:31] LABS: Cholesterol 245 mg/dL (<200); HDL Cholesterol 57 mg/dL (>40); LDL Cholesterol Calculated 165 mg/dL (<100); Triglycerides 119 mg/dL (<150)
== END 2024-07-24 09:04 | disposition home or self-care (01) ==
LOC: HO.LAB 09:03
PROVIDERS: PCP Family Medicine; Visit Provider Internal Medicine Cardiovascular Disease
DX: E78.5 Hyperlipidemia, unspecified (principal)
CPT/HCPCS: 36415; 80061

== ENCOUNTER 2024-07-30 09:46 | Outpatient (AMB) | payer MEDICAID, SELFPAY ==
--- NOTE | 2024-07-30 10:03 | A.OFFVIS_ITS ---
Vital Signs 07/30/24 10:04 Height 5 ft 5 in Weight 180 lb 12.465 oz BMI 30.1 BP 120/80 Blood Pressure Location Lt brachial Position Sitting Pulse 77 Pulse Source Monitor Intake Visit Reasons: 6mth f/up Manga Artist Required: Yes Manga Artist Name: [id number] Allergies No Known Allergies Allergy (Verified 05/19/24 11:29) Medication List - Last Reconciled 07/30/24 by Audelia Carney COLOR FINISHER-C acetaminophen 325 mg PO QID PRN albuterol sulfate 90 mcg/actuation (ProAir HFA) 2 puffs inhalation 6XD [Anti-pronation orthotics Anti-pronation orthotics] ergocalciferol (vitamin D2) 1,250 mcg PO QWEEK evolocumab (Repatha SureClick) 140 mg subcut Q2W fluticasone propionate 110 mcg/actuation (Flovent HFA) 1 puff inhalation BID gabapentin 300 mg PO TID montelukast (Singulair) 10 mg PO DAILY rosuvastatin 40 mg PO BEDTIME sumatriptan succinate (Imitrex) take 1 tab at onset of headache; if no relief may repeat 1 tab after at least 2 hrs; max = 2 tabs/24 hr PO zolpidem 10 mg PO BEDTIME PRN HPI HPI 6mth f/up: Details: Marcela is a 48-year-old female with past medical history of hyperlipidemia, fibromyalgia, CAD, palpitations who presents for follow-up after recent echocardiogram and nuclear stress test. Today she reports that she does get random pains in her chest at times. She demonstrates that if she twists her body more to the right she will notice symptoms. She denies having chest discomfort brought on by walking or stair climbing. She will notice brief heart palpitations at times however this is not overly bothersome for her currently. She does report being under high stress levels recently. No shortness of breath, PND, orthopnea, edema. No lightheadedness, presyncope, syncope. She tells me she has not been taking the Repatha shot as the insurance no longer approved it. She is taking her other medications as directed REPLACED BY [facility] Medical History Pes planus of both feet Hyperlipidemia CAD (coronary artery disease) Fibromyalgia Surgical History S/P tubal ligation Hx of cardiac cath (04/15/18) Hx of section History of carpal tunnel surgery Hx of removal of cyst History of esophagogastroduodenoscopy (EGD) (11/22/14) History of surgery on wrist Family History Maternal Grandmother History of breast cancer Maternal Grandfather History of liver cancer Father CVD (cardiovascular disease) Mother HTN (hypertension) Diabetes Rheumatoid arthritis Fibromyalgia Social History Household Members: None Housing: Apartment Alcohol intake: current Alcohol intake frequency: does not drink Substance Use Type: Marijuana Review of Systems Const Details: under high stress All systems reviewed & are unremarkable except as noted in HPI and below Denies weakness ENT Denies dizziness Card Reports chest pain, Denies chest pain with activity, Denies syncope, Denies rapid heart rate, Denies pedal edema, Denies edema, Denies leg edema, Denies lightheadedness, Denies palpitations, Denies dyspnea, Denies dyspnea on exertion and Denies orthopnea Resp Denies cough, Denies dyspnea and Denies dyspnea on exertion GI Denies hematochezia and Denies change in stool character Musc Denies abnormal gait, Denies muscle cramps, Denies muscle weakness, Denies numbness, Denies radiating pain into limb and Denies tingling Neuro Denies abnormal gait, Denies dizziness, Denies syncope, Denies numbness, Denies tingling and Denies weakness Endo Denies palpitations Physical Exam Vital Signs: Last Vital Signs Pulse 77 07/30/24 10:04 BP 120/80 07/30/24 10:04 BMI result Body Mass Index 30.1 Const General: cooperative, healthy appearing, comfortable and no acute distress Orientation/consciousness: patient oriented x3 Neck Neck: Yes normal visual inspection Resp Effort & Inspection: normal respiratory effort Auscultation: clear to auscultation bilaterally, no rales, no rhonchi and no wheezes Cardio Jugular venous distension: no JVD Rate: regular rate Rhythm: regular rhythm Heart sounds: S1 normal heart sound present, S2 normal heart sound present, no murmurs and no rubs Neuro General: patient oriented x3 Extrem General: Yes normal to inspection, No no pedal edema and No calf tenderness Psych Appearance: grossly normal Mental Status: mental status grossly normal Speech and movement: Normal speech and movement present Office Procedures EKG Details: Today, read by me, SR, Septal q wave, rate 77, Qtc 432ms [id number], Complete Assessment & Plan Assessment & Plan (1) Chest pain: Code(s): R07.9 - Chest pain, unspecified Category: Medical Plan: Reports of chest discomfort, currently atypical sounding. She does have a known history of small-vessel coronary disease by prior catheterization. She did undergo an echocardiogram on 02/19/2024 showing EF 55-60%, no valve abnormalities and no regional wall motion abnormality. A pharmacological nuclear stress test done on 07/22/2024 showed normal myocardial perfusion imaging, EF 57%. Test results reviewed with her in detail. Informed her that her chest symptoms are most likely noncardiac in nature. Spent time reviewing signs of true angina. Continue aspirin indefinitely. Continue high-dose rosuvastatin. Will work on getting Repatha for her. Benefits a weight loss and physical activity but he reviewed. Cardiology follow-up in 6 months, sooner if needed. (2) CAD (coronary artery disease): Comment: Diffuse small-vessel disease, medically managed Code(s): I25.10 - Atherosclerotic heart disease of [place] coronary artery without angina pectoris Category: Medical Plan: As above (3) Hypertension: Code(s): I10 - Essential (primary) hypertension Category: Medical Plan: Well controlled at this time. Continue lisinopril. Labs done 05/19/2024 showed creatinine 0.76. (4) Hyperlipidemia: Code(s): E78.5 - Hyperlipidemia, unspecified Category: Medical Plan: [place] LDL goal less than 70. She is on rosuvastatin 40 mg daily. She had been on Repatha but tells me the insurance is no longer paying. She has been off it for 2 months. Labs were done on 07/24/2024 showing LDL 165. Will reorder Repatha and send message to our office nurse regarding PA for this medication. When she is back on Repatha for at least 6 weeks I have instructed her to get a repeat fasting lipid profile which was ordered. Plan Time spent on chart review, documentation, interview and assessment Orders: Orders Lipid Panel 2 Months E78.5 - Hyperlipidemia, unspecified Medications: Changed From evolocumab (Repatha SureClick) 140 mg subcut Q2W 2 mL 3RF To evolocumab (Repatha SureClick) 140 mg subcut Q2W 90 days 6 mL 3RF Coding Level of Care Code Est Pt Level 4 (27959) Complex EM visit Add On G2211 Diagnoses Chest pain R07.9 CAD (coronary artery disease) I25.10 Hypertension I10 Hyperlipidemia E78.5 CPT Codes EKG - CPT: 41274-[id number], Complete ([id number]) Time Spent (min) 30
[2024-07-30 10:04] VITALS: BP 120/80; PULSE 77; BMI 30.1
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
== END 2024-07-30 10:39 | disposition home or self-care (01) ==
PROVIDERS: PCP Family Medicine; Visit Provider Nurse Practitioner Family
DX: R07.9 Chest pain, unspecified (principal); I25.10 Atherosclerotic heart disease of native coronary artery without angina pectoris; I10 Essential (primary) hypertension; E78.5 Hyperlipidemia, unspecified
CPT/HCPCS: 93010; 99214

== ENCOUNTER → 2024-07-30 09:46 | Outpatient (BNVA) | payer MEDICAID, SELFPAY | PROVIDERS: PCP Family Medicine; Visit Provider Nurse Practitioner Family | DX: I25.10 Atherosclerotic heart disease of native coronary artery without angina pectoris (principal); I10 Essential (primary) hypertension; E78.5 Hyperlipidemia, unspecified; M79.7 Fibromyalgia; R07.9 Chest pain, unspecified | CPT/HCPCS: 93005; 99212 ==

== ENCOUNTER 2024-12-29 08:47 | Outpatient (REF) | payer MEDICAID, SELFPAY ==
--- OUTSIDE RECORDS SUMMARY | 2024-12-29 08:56 | XMS_ITS | Encounter Summary ---
Author Organization [facility] Address [address] 7 [place] [address] Care Team Providers Care Ssn/Ssbn Weapons Equipment Operator Name Role Phone Cassie Barnett DO Primary Care Provider + [phone] Frederick Heaton Unavailable Unavailable Reason for Visit * Reason Comments Med Refill Encounter Details Date Type Department Care Team ([facility] st Contact Info) Description 01/04/2023 Refill [facility] [address], [place] [phone] Cassie Barnett DO [address], [place] [phone] Hyperlipidemia, unspecified hyperlipidemia type; Hypertension, unspecified type Social History Tobacco Use Types Packs/Day Years Used Date Smoking Tobacco: Former Cigarettes 0.5 2011 Smokeless Tobacco: Former Alcohol Use Standard Drinks/Week Comments Never 0 (1 standard drink = 0.6 oz pur e alcohol) Comments Unknown Sex and Gender Information Value Date Recorded Sex Assigned at Female 04/15/2022 10:20 AM EDT Legal Sex Female 10:20 AM EDT Gender Identity Female 04/15/2022 10:20 AM EDT Sexual Orientation Straight 04/15/2022 10 :20 AM EDT documented as of this encounter Plan of Treatment Not on file documented as of this encounter Visit Diagnoses Diagnosis Hyperlipidemia, unspecified hyperlipidemia type Hypertension, unspecified type documented in this encounter Additional Health Concerns Assessment Noted Time PHQ-9 Depression Total Score: 14 12/ 022 9:35 AM EST documented as of this encounter Care Teams Ssn/Ssbn Weapons Equipment Operator Relationship Specialty Start Date End Date Cassie Barnett DO [address] [place] [address] PCP - General Family Medicine 12/29/18 Frederick Heaton FNP [address] [place] [id number] Nurse Practitioner Family Medicine 05/20/23 documented as of this encounter
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
[2024-12-29 09:45] LABS: Cholesterol 270 mg/dL (<200); HDL Cholesterol 62 mg/dL (>40); Triglycerides 136 mg/dL (<150)
== END 2024-12-29 08:48 | disposition home or self-care (01) ==
LOC: HO.LAB 08:47
PROVIDERS: Nurse Practitioner Family; PCP Family Medicine; Visit Provider Internal Medicine Cardiovascular Disease
DX: E78.5 Hyperlipidemia, unspecified (principal)
CPT/HCPCS: 36415; 80061

== ENCOUNTER 2025-01-27 09:35 | Outpatient (AMB) | payer MEDICAID, SELFPAY ==
--- NOTE | 2025-01-27 10:12 | MHC.OFFVIS ---
Vital Signs 01/27/25 10:13 Height 5 ft 5 in Weight 188 lb 11.451 oz BMI 31.4 BP 118/76 Blood Pressure Location Lt brachial Position Sitting Pulse 74 Pulse Source Pulse Oximeter Intake Visit Reasons: 6m follow up Microfabrication Engineer Manager Required: Yes Microfabrication Engineer Manager Name: Alejandra/Kyaw [id number] Accompanied by: Self / Same As Patient Allergies No Known Allergies Allergy (Verified 01/27/25 10:18) Medication List - Last Reconciled 01/27/25 by Audelia Carney NP-C acetaminophen 325 mg PO QID PRN albuterol sulfate 90 mcg/actuation (ProAir HFA) 2 puffs inhalation 6XD [Anti-pronation orthotics Anti-pronation orthotics] ergocalciferol (vitamin D2) 1,250 mcg PO QWEEK evolocumab (Repatha SureClick) 140 mg subcut Q2W 90 days fluticasone propionate 110 mcg/actuation (Flovent HFA) 1 puff inhalation BID montelukast (Singulair) 10 mg PO DAILY rosuvastatin 40 mg PO BEDTIME sumatriptan succinate (Imitrex) take 1 tab at onset of headache; if no relief may repeat 1 tab after at least 2 hrs; max = 2 tabs/24 hr PO zolpidem 10 mg PO BEDTIME PRN HPI HPI 6m follow up: Details: Marcela is a 48-year-old female with past medical history of hyperlipidemia, fibromyalgia, small-vessel CAD, who presents for follow-up. Today she reports that she has been doing well with no concerning symptoms. No chest discomfort at rest or with activity. No concerning heart palpitations. No lightheadedness, presyncope, syncope. No shortness of breath, PND, orthopnea, edema. No lightheadedness, presyncope, syncope. She reports compliance with her Repatha and her rosuvastatin. Remains physically active. [facility] Medical History Pes planus of both feet Hyperlipidemia CAD (coronary artery disease) Fibromyalgia Surgical History S/P tubal ligation Hx of cardiac cath (04/15/18) Hx of section History of carpal tunnel surgery Hx of removal of cyst History of esophagogastroduodenoscopy (EGD) (11/22/14) History of surgery on wrist Family History Maternal Grandmother History of breast cancer Maternal Grandfather History of liver cancer Father CVD (cardiovascular disease) Mother HTN (hypertension) Diabetes Rheumatoid arthritis Fibromyalgia Social History Household Members: None Housing: Apartment Alcohol intake: current Alcohol intake frequency: does not drink Substance Use Type: Marijuana Review of Systems Const All systems reviewed & are unremarkable except as noted in HPI and below ENT Denies dizziness Card Reports chest pain, Denies chest pain at rest, Denies chest pain with activity, Denies rapid heart rate, Denies pedal edema, Denies edema, Denies leg edema, Denies lightheadedness, Denies palpitations, Denies dyspnea, Denies dyspnea on exertion and Denies orthopnea Resp Denies cough, Denies dyspnea and Denies dyspnea on exertion GI Denies hematochezia and Denies change in stool character Musc Details: numbness in hands and feet Denies abnormal gait, Denies limited range of motion, Denies muscle cramps, Denies muscle weakness, Reports numbness, Denies radiating pain into limb, Denies stiffness and Denies tingling Neuro Denies abnormal gait, Denies dizziness, Reports numbness and Denies tingling Endo Denies palpitations Physical Exam Vital Signs: Last Vital Signs Pulse 74 01/27/25 10:13 BP 118/76 01/27/25 10:13 BMI result Body Mass Index 31.4 Const General: cooperative, healthy appearing, comfortable and no acute distress Orientation/consciousness: patient oriented x3 Neck Neck: Yes normal visual inspection and Yes no JVD Resp Effort & Inspection: normal respiratory effort Auscultation: clear to auscultation bilaterally, no rales, no rhonchi and no wheezes Cardio Rate: regular rate Rhythm: regular rhythm Heart sounds: S1 normal heart sound present, S2 normal heart sound present, no gallops, no murmurs and no rubs Neuro General: patient oriented x3 Extrem General: Yes normal to inspection, No no pedal edema and No calf tenderness Psych Appearance: grossly normal Mental Status: mental status grossly normal Speech and movement: Normal speech and movement present Assessment & Plan Assessment & Plan (1) CAD (coronary artery disease): Comment: Diffuse small-vessel disease, medically managed Code(s): I25.10 - Atherosclerotic heart disease of [place] coronary artery without angina pectoris Category: Medical Plan: History of small-vessel coronary disease by prior catheterization. She did undergo an echocardiogram on 02/19/2024 showing EF 55-60%, no valve abnormalities and no regional wall motion abnormality. A pharmacological nuclear stress test done for atypical chest discomfort on 07/22/2024 showed normal myocardial perfusion imaging, EF 57%. Currently no anginal symptoms. Continue aspirin indefinitely. Continue high-dose rosuvastatin and PCSK9 inhibitor. Cardiology follow-up in 6 months, sooner if needed. (2) Hypertension: Code(s): I10 - Essential (primary) hypertension Category: Medical Plan: Well controlled at this time. Continue lisinopril. Labs done 05/19/2024 showed creatinine 0.76. (3) Hyperlipidemia: Code(s): E78.5 - Hyperlipidemia, unspecified Category: Medical Plan: [place] LDL goal less than 70. She is on rosuvastatin 40 mg daily and reports compliance with Repatha injection every 2 weeks. Labs done 12/29/2024 shows LDL 181. Will have her stop Repatha and try Praluent injection every 2 weeks. Repeat lipid profile 6-8 weeks following this change. Plan Time spent on chart review, documentation, interview and assessment Orders: Orders Lipid Panel 3 Months I25.10 - Atherosclerotic heart disease of [place] coronary artery without angina pectoris Medications: New alirocumab (Praluent Pen) Change from Repatha to Praluent 75 mg subcut Q2W 6 mL 3RF Discontinued evolocumab (Repatha SureClick) Discontinued Reason: Doctor's Order 140 mg subcut Q2W 90 days 6 mL 3RF Coding Level of Care Code Est Pt Level 4 (68465) Complex EM visit Add On G2211 Diagnoses CAD (coronary artery disease) I25.10 Hypertension I10 Hyperlipidemia E78.5 Time Spent (min) 30
[2025-01-27 10:13] VITALS: BP 118/76; PULSE 74; BMI 31.4
--- OUTSIDE RECORDS SUMMARY | 2025-01-27 10:16 | XMS_ITS ---
Author Name [facility] Organization Unknown Encounters Encounter Type Encounter Reason Primary Diagnosis Location Date Ambulatory [facility] 10/14/2024 Ambulatory [facility] 10/12/2024 Ambulatory [facility] 10/07/2024 Ambulatory [facility] 10/05/2024 Ambulatory [facility] 09/28/2024 Care Team Organization Name Specialty Phone Email Start Date End [facility] 09/28/2024
--- OUTSIDE RECORDS SUMMARY | 2025-01-27 10:16 | XMS_ITS | Encounter Summary ---
Author Organization [employer] Address [address] [facility] 7 [place] [address] Care Team Providers Care Sales Development Representative Name Role Phone Cassie Barnett DO Primary Care Provider + [phone] Frederick Heaton Unavailable Unavailable Reason for Visit * Reason Comments Med Refill Encounter Details Date Type Department Care Team ([facility] st Contact Info) Description 01/04/2023 Refill [facility] MEDICINE [address] [place], [place] [phone] Cassie Barnett DO [address] [place], [place] [phone] Hyperlipidemia, unspecified hyperlipidemia type; Hypertension, unspecified type [...] documented as of this encounter Care Teams Sales Development Representative Relationship Specialty Start Date End Date Cassie Barnett DO [address] [place] [address] PCP - General Family Medicine 12/29/18 Frederick Heaton FNP [address] [place] [id number] Nurse Practitioner Family Medicine 05/20/23 documented as of this encounter
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
== END 2025-01-27 11:05 | disposition home or self-care (01) ==
LOC: HO.HCS 09:36
PROVIDERS: PCP Family Medicine; Visit Provider Nurse Practitioner Family
DX: I25.10 Atherosclerotic heart disease of native coronary artery without angina pectoris (principal); I10 Essential (primary) hypertension; E78.5 Hyperlipidemia, unspecified
CPT/HCPCS: 99214

== ENCOUNTER → 2025-01-27 09:35 | Outpatient (BNVA) | payer MEDICAID, SELFPAY | PROVIDERS: PCP Family Medicine; Visit Provider Nurse Practitioner Family | DX: I25.10 Atherosclerotic heart disease of native coronary artery without angina pectoris (principal); I10 Essential (primary) hypertension; E78.5 Hyperlipidemia, unspecified | CPT/HCPCS: 99212 ==

== ENCOUNTER 2025-04-15 09:07 | Outpatient (REF) | payer MEDICAID, SELFPAY ==
--- NOTE | ~2025-04-15 | XR_ITS ---
EXAMINATION: XR KNEE 4 OR MORE VIEWS RIGHT HISTORY: worsening pain both knees COMPARISON: There are no prior studies available for comparison. FINDINGS: Four views of the right knee are submitted. Osseous mineralization is normal. There is no fracture or dislocation. The joint spaces are preserved. The soft tissues are unremarkable. There is no joint effusion. XR/XR knee RT 4V IMPRESSION: Unremarkable examination of the right knee. Electronically signed by: Niko Xiao MD 04/15/2025 09:48 AM EDT
--- NOTE | ~2025-04-15 | XR_ITS ---
EXAMINATION: XR KNEE 4 OR MORE VIEWS LEFT HISTORY: worsening pain both knees COMPARISON: Comparison is made with the prior examination dated 04/30/2019. FINDINGS: Five views of the left knee are submitted. Osseous mineralization is normal. There is no fracture or dislocation. The joint spaces are preserved. The soft tissues are unremarkable. There is no joint effusion. XR/XR knee LT 4V IMPRESSION: Unremarkable examination of the left knee. Electronically signed by: Niko Xiao MD 04/15/2025 09:46 AM EDT
--- OUTSIDE RECORDS SUMMARY | 2025-04-15 09:59 | XMS_ITS | Encounter Summary ---
Author Organization [employer] Address [address] [facility] 7 [place] [address] Care Team Providers Care Email Deployment Specialist Name Role Phone Cassie Barnett DO Primary Care Provider + [phone] Frederick Heaton Unavailable Unavailable Reason for Visit * Reason Onset Date Comments letter 04/15/2025 Encounter Details Date Type Department Care Team ([facility] st Contact Info) Description 04/15/2025 Telephone [facility] MEDICINE [address] [place], [place] [phone] Cassie Barnett DO [address] [place] [address] letter Social History Tobacco Use Types Packs/Day Years Used Date Smoking Tobacco: Former Cigarettes 0.5 2 - 2011 Smokeless Tobacco: Former Alcohol Use Standard Drinks/Week Comments Never 0 (1 standard drink = 0.6 oz pur e alcohol) Depression Answer Date Recorded Patient Health Questionnaire-9 Score 10 03/29/2025 Patient Health Questionnaire-9 Score 10 03/29/2025 Last PHQ-9: Questionnaire Data Not on file 1 Housing Stability Answer Date Recorded What is your housing situation today? I do not have housing (Staying with others, in a hotel, in a alf, living outside on the street, on a beach, in a car, or in a park 03/22/[address] you li ve. Do you have problems with any of the following? None of the above 03/22/2025 Food Insecurity Answer Date Recorded Within the past 12 months, y ou worried that your food would run out before you got money to buy more: Never True 03/22/2025 Within the past 12 months,th e food you bought just didn't last and you didn't have enough money to get more: Never True 12/2024 Transportation Answer Date Recorded In the past 12 months, has l ack of transportation kept you from medical appts, meetings, work or from getting things needed for daily living? No 03/22/2025 Utilities Answer Date Recorded In the past 12 months, has t he electric, gas, oil or water company threatened to shut off services in your home? No 03/22/2025 Depression Answer Date Recorded Patient Health Questionnaire-2 Score 2 03/29/2025 Internet Access Answer Date Recorded Internet Access Q1 Yes 03/22/2025 Internet Access Q2 Not on file 03/22/2025 Comments No Sex and Gender Information Value Date Recorded Sex Assigned at Female 04/15/2022 10:20 AM EDT Legal Sex Female 10:20 AM EDT Gender Identity Female 04/15/2022 10:20 AM EDT Sexual Orientation Straight 04/15/2022 10 :20 AM EDT documented as of this encounter Miscellaneous Notes * Telephone Encounter - Milan Mendez - 04/15/2025 9:44 AM EDT Tc from pt requesting update on form with diagnosis that states she can not work , that was discussed during last apt so pt is able to apply for [place] benefits Contact pt at [phone] (moroccan) documented in this encounter Plan of Treatment Not on file documented as of this encounter Visit Diagnoses Not on filedocumented in this encounter Additional Health Concerns Assessment Noted Time PHQ-9 Depression Total Score: 10 025 1:34 PM EDT documented as of this encounter Care Teams Email Deployment Specialist Relationship Specialty Start Date End Date Cassie Barnett DO [address] [place] [address] PCP - General Family Medicine 12/29/18 Frederick Heaton FNP [address] [place] [address] Nurse Practitioner Family Medicine 05/20/23 documented as of this encounter
--- OUTSIDE RECORDS SUMMARY | 2025-04-15 09:59 | XMS_ITS | Clinical Summary ---
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 triamcinolone (Nasacort) 55 MCG/ACT nasal inhaler Inhale 2 sprays 1 (one) time each day. 021 Active albuterol (2.5 MG/3ML) 0.083% nebulizer solution Inhale 3 mL every 4 (four) hours. 021 Active naloxone (Narcan) 4 mg/0.1 mL nasal spray Administer 0.1 mL into affected nostril(s). 021 Active Proventil HFA 108 (90 Base) MCG/ACT inhalerIndication s:Asthma, unspecified asthma severity, unspecified whether complicated, unspecified whether persistent INHALE 2 PUFFS BY MOUTH EVERY 4 TO 6 HOURS NEEDED FOR COUGH, FOR WHEEZING AND SHORTNESS OF BREATH 6.7 g 2 023 Active ipratropium (Atrovent) 0.06 % nasal sprayIndications: Viral URI 2 sprays each nostril bid prn rhinorrhea, ivorian 15 mL 024 Active aspirin (Aspirin Low Dose) 81 MG EC tabletIndications :Hyperlipidemia, unspecified hyperlipidemia type Take 1 tablet (81 mg) by mouth at bedtime. 90 tablet 024 Active lisinopril 20 MG tabletIndications :Hypertension, unspecified type Take 0.5 tablets (10 mg) by mouth Once per day. 90 tablet Active Blood Pressure Monitoring (Blood Pressure Cuff) [facility] Use daily as prescribed 1 each Active omeprazole (PriLOSEC) [address] capsuleIndication s:Gastroesophagea l reflux disease, unspecified whether esophagitis present Take 1 capsule (20 mg) by mouth before breakfast. Do not crush or chew. 90 capsule Active cloNIDine (Catapres) 0.1 MG tablet Take 1 tablet (0.1 mg) by mouth 2 times daily. 180 tablet 3 Active OXcarbazepine (Trileptal) 300 MG tablet Take 2 tablets (600 mg) by mouth 2 times daily. 360 tablet Active perphenazine 8 MG tablet Take 1 tablet (8 mg) by mouth 2 times daily. 180 tablet Active cholecalciferol (Vitamin D-3) 50 MCG (2000 UT) capsule Take 1 capsule (50 mcg) by mouth Once per day. 90 capsule Active fluticasone furoate (Arnuity Ellipta) 100 MCG/ACT inhaler Inhale 1 puff Once per day. Rinse mouth with water after use to reduce aftertaste and incidence of candidiasis. Do not swallow. 1 each Active Diclofenac Sodium 1 % gel Apply 2 g topically if needed in the morning, at noon, in the evening, and at bedtime (pain). 100 g 3 025 Active cetirizine (ZyrTEC) 10 MG tabletIndications :Seasonal allergic rhinitis due to other allergic trigger Take 1 tablet (10 mg) by mouth in the morning. 90 tablet 3 025 Active zolpidem (Ambien) 10 MG tablet TAKE 1 TABLET BY MOUTH AT BEDTIME NEEDED FOR SLEEP 30 tablet 3 025 Active montelukast (Singulair) 10 MG tabletIndications :Seasonal allergic rhinitis due to other allergic trigger TAKE 1 TABLET BY MOUTH EVERY EVENING 90 tablet 3 025 Active amitriptyline (Elavil) 25 MG tablet Take 1 tablet (25 mg) by mouth at bedtime. 90 tablet 3 025 Active SUMAtriptan (Imitrex) 25 MG tablet TAKE 1 TABLET BY MOUTH AT ONSET OF MIGRAINE. MAY REPEAT AFTER 2 HOURS IF NEEDED. DO NOT EXCEED 2 TABLETS / 24 HOURS 9 tablet 3 Active gabapentin (Neurontin) 300 MG capsuleIndication s:Other chronic pain TAKE 1 CAPSULE BY MOUTH TWICE DAILY 60 capsule 2 Active albuterol (Ventolin HFA) 108 (90 Base) MCG/ACT inhalerIndication s:Asthma,Bronchos pasm INHALE 2 PUFFS BY MOUTH EVERY 4 TO 6 HOURS NEEDED FOR SHORTNESS OF BREATH OR WHEEZING 18 g 1 Active baclofen (Lioresal) 10 MG tablet TAKE 1 TABLET BY MOUTH THREE TIMES DAILY IN THE MORNING, AT NOON, AND AT BEDTIME NEEDED FOR MUSCLE SPASMS 60 tablet 3 Active rosuvastatin (Crestor) 40 MG tabletIndications :Other hyperlipidemia Take 1 tablet (40 mg) by mouth at bedtime. 90 tablet 3 Active acetaminophen (Tylenol 8 Hour) 650 MG ER tablet Take 1 tablet (650 mg) by mouth every 8 (eight) hours if needed for mild pain. 60 tablet 3 025 2025 Active acetaminophen (Tylenol 8 Hour) 650 MG ER tablet Take 1 tablet by mouth every 8 (eight) hours if needed. 021 2024 Discontinued(R eorder (will not trigger notification to Pharmacy)) baclofen (Lioresal) 10 MG tablet TAKE 1 TABLET BY MOUTH THREE TIMES DAILY IN THE MORNING, AT NOON, AND AT BEDTIME NEEDED FOR MUSCLE SPASMS 60 tablet 3 024 2024 Discontinued Nirmatrelvir&Al navir 300/100 (Paxlovid, 300/100,) 20 x 150 MG & 10 x 100MG tablet therapy pack Take 1 Dose by mouth 2 times daily. 30 each 025 2024 Discontinued(T herapy completed) rosuvastatin (Crestor) 40 MG tabletIndications :Other hyperlipidemia TAKE 1 TABLET BY MOUTH EVERY DAY AT BEDTIME 90 tablet 3 025 2024 Discontinued(R eorder (will not trigger notification to Pharmacy)) Active Problems Problem Noted Date Diagnosed Date Left lower quadrant pain 05/19/2024 Assessment & Plan (05/19/2024 10:58 AM EST): Pt with 2 days of severe left lower quadrant pain. Mild dysuria, no hematuria, no cva tenderness appreciated. Severely tender on palpation. Discussed options with pt of ua, and possible management out patient, vs potential need for CT to rule in/out abdominal infection. 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 Chronic neck pain 05/22/2022 Chronic back pain 05/22/2022 Fibromyalgia 05/22/2022 Assessment & Plan (12/23/2023 10:10 AM EDT): - seems to be exacerbated, probably due to lapse in f/u on mental health conditions - restart Gabapentin at a lower dose of 300 mg BID and f/u with PCP - she will f/u with psychiatry on November 30 - we dicussed importance of controlling chronic conditions/check labs Allergic rhinitis 05/22/2022 Moderate persistent asthma 05/22/2022 Assessment & Plan (12/23/2023 10:06 AM EDT): - continue using Albuterol PRN only and Singulair - continue off Flovent for now and f/u with PCP Fatty liver 05/22/2022 Coronary arteriosclerosis 06/29/2021 Assessment & Plan (12/23/2023 9:46 AM EDT): - pt to restart Aspirin for now and check lipid profile - f/u with cardiology next month Hyperlipidemia 06/12/2016 Assessment & Plan (12/23/2023 10:12 AM EDT): - LDL goal is 70, pt is off Zetia and Statin? - check labs and f/u with PCP Vitamin D deficiency 06/12/2016 Assessment & Plan (12/23/2023 9:49 AM EDT): - check Vitamin D levels and f/u with PCP - continue off Vitamin D Essential hypertension 01/11/2016 Assessment & Plan (12/23/2023 10:07 AM EDT): - BP seems to be fairly controlled, however given history of CAD, I will start lower dose of Lisinopril - start Lisinopril 10 mg per day/day and check BP at home daily - f/u with PCP in 4-5 weeks with labs Bipolar disorder 03/30/2015 Assessment & Plan (01/29/2024 11:54 AM EDT): PROGRESS NOTE: ID: Marcela is a 48 y.o. straight-identified cis-female with previous documented hx of Bipolar Disorder , Trauma, and agoraphobia with panic attacks MH services including OP Psychotherapy psychopharmacology who presents for Bipolar, Depression, PTSD (Post-Traumatic Stress Disorder), and homelessness. During IBH Consult Marclea presenting with Abnormally elevated mood, Flight of ideas, and Other: irritability, racing thoughts, impulsive, Flashbacks, Intrusive trauma memories and thoughts, Nightmares/night terrors, Hypervigilance, Avoidance of trauma reminders/triggers, Increased startle response, and Fear of social judgement, and palpitations, sweating, trembling/shaking, sensation of shortness of breath/smothering, feeling of choking, Chills/heat sensation, fear of losing control; for a period of 18+ mo, for all symptoms in the context of been homeless for 2 years, caring for special needs child, lack of OP services, lack of psych medication, financial instability. Marcela presented with increase sxs of depression, irritability, frustration and tearful ( base on what I was able to hear) and anxiety sxs. Reported has been homeless for 2 years, staying with friends, unemployed. Has no medication. After reviewing her chart, noticed Marcela has meds refills (Perphenazine 8 mg BID, Clonidine 0.1 mg BID, Trileptal (Oxcarbazapine) 300 mg 2 BID, and Ambien 10 mg at bedtime, along with Melatonin prn. Amitriptyline 25 mg at bedtime) from Frederick Heaton, encouraged her to call pharmacy to get them filled, she agreed. Also provide education and information about Crisis and Respite programs with [facility]. She denies Safety plan at this moment. Coping skills to manage anxiety, depressive sxs and emotional regulation were provided. Marcela was engaged, able to express emotions regarding her current stressors. She was able to reframed negative self thoughts and encouraged her to continue effective coping mechanisms and try the ones provided including the mindfulness radha. PLAN: New/Additional Services needed PCP management Off-site services for Behavioral Health Integration Plan External OP therapy referral and OP psychiatry Referral Patient Self Plan Patient to utilize skills provided in intervention , Patient to reach out to [facility] team as needed, Comply with medication , Patient to engage in OP therapy , and Patient to reach out to HC as needed Assessment & Plan (12/30/2023 10:23 AM EDT): Had been stable with medication and counseling, then was out of the area, off medications, and dealing with family stressors. Now back and feeling anxious and depressed,living with family. Recently resumed some but not all medications. Will have new Rx's for Perphenazine 8 mg BID, Clonidine 0.1 mg BID, Trileptal (Oxcarbazapine) 300 mg 2 BID, and Ambien 10 mg at bedtime, along with Melatonin prn. Amitriptyline 25 mg at bedtime has been helpful for migraines. F/U for therapy when available. Since this provider will be retiring, pt will be referred to new [facility] psychiatric provider. Pt is aware that appts will be via televisit, and that provider will not be employee of [facility]. She gives permission to share PHI. Any issues or concerns, contact [facility]. All her questions were answered and I have wished her well. She agrees with the plan. Assessment & Plan (04/07/2023 3:02 PM EDT): Still feels her medications are working well. No hallucinations. Continue Perphenazine 12 mg BID, Clonidine 0.1 mg BID, Trileptal (Oxcarbazapine) 300 mg 2 BID, and Ambien 10 mg at bedtime, along with Melatonin prn. Amitriptyline 25 mg at bedtime has been helpful for migraines. F/U for therapy when available and with me in 2 months. She agrees with the plan. Assessment & Plan (02/10/2023 3:20 PM EDT): Dealing with multiple stressors, but still feels her medications are working well. No hallucinations. Continue Perphenazine 12 mg BID, Clonidine 0.1 mg BID, Trileptal (Oxcarbazapine) 300 mg 2 BID, and Ambien 10 mg at bedtime, along with Melatonin prn. Amitriptyline 25 mg at bedtime has been helpful for migraines. Will refer for therapy. F/U with me in 6-8 weeks. She agrees with the plan. Carpal tunnel syndrome 03/30/2015 Gastroesophageal reflux disease 03/30/2015 Assessment & Plan (12/23/2023 10:08 AM EDT): - restart Omeprazole 20mg x 1 month and f/u with PCP - we discussed about taking it daily due to decreased absorption of certain nutrients - check B12 levels Migraine 03/30/2015 Posttraumatic stress disorder 03/30/2015 Resolved Problems Problem Noted Date Diagnosed Date Resolved Date Adjustment disorder 12/24/2023 01/29/20 24 Cough in adult patient 12/17/202301/22 Acute thoracic back pain 11/14/2017 Steatosis of liver 03/30/2015 4 Encounters Date Type Department Care Team Description 04/15/2025 Telephone [facility] [address] [place] [phone] Cassie Barnett DO letter 04/05/2025 Telephone [facility] [address] [place] [address] Cassie Barnett DO telephone call 03/29/2025 11:30 AM EDT Office Visit [facility] [address] [place] [address] Cassie Barnett DO Fatty liver (Primary Dx); Other hyperlipidemia; Essential hypertension; Chronic pain of both knees; Chronic neck pain 03/29/2025 Travel 03/24/2025 Telephone [facility] [address] [place] [phone] Cassie Barnett DO Chart Prep 03/23/2025 Refill [facility] [address] [place] [address] Cassie Barnett DO 03/22/2025 Travel 03/22/2025 Patient Outreach [facility] [address] [place] [phone] Cassie Barnett DO Care Coordination (CHW outreach for SDOH housing search-referral completed ) 03/22/2025 Patient Outreach [facility] [address] [place] [phone] Cassie Barnett DO Pre-visit Planning (SDOH screening negative and tobacco screening negative) 03/20/2025 Refill [facility] [address] [place] [address] Cassie Barnett DO 03/18/2025 Telephone [facility] [address] [place] [phone] Cassie Barnett DO Other 03/18/2025 Travel 03/04/2025 Telephone [facility] [address] [place] [phone] Cassie Barnett DO Nurse Triage 02/11/2025 Refill [facility] [address] [place] [address] Cassie Barnett DO 02/06/2025 Orders Only [facility] [address] [place] [phone] Cassie Barnett DO Fatty liver (Primary Dx); Chronic gastroesophageal reflux disease; Colon cancer screening 02/05/2025 Refill [facility] [address] [place] [phone] Cassie Barnett DO Other chronic pain 01/23/2025 Refill [facility] [address] [place] [address] Cassie Barnett, 01/21/2025 Refill [facility] [address] [place] [address] Cassie Barnett DO 01/20/2025 Refill [facility] [address] [place] [address] Cassie Barnett, 01/19/2025 Refill [facility] [address] [place] [address] Eileen Jesus MD Seasonal allergic rhinitis due to other allergic trigger 01/19/2025 Refill [facility] [address] [place] [address] Cassie Barnett DO Other hyperlipidemia; Seasonal allergic rhinitis due to other allergic trigger 01/17/2025 Refill [facility] [address], [place] [phone] Cassie Barnett, from Last 3 Months Immunizations Immunization Administration Dates Next Due Hep A / Hep B 10/04/2011,04/30/2011,11/26/2010 Influenza injectable quadriv alent IIV4 with preservative 05/12/2018,05/27/2017,03/30/2015 Influenza injectable quadriv alent preservative free 04/24/2021,04/18/2020,03/18/2019,06/12 Influenza, IIV3, injectable 03/11/2014, 0 Influenza, Split (incl. ely fied surface antigen) 04/12/2013,04/09/2012 Influenza, seasonal, injecta ble, preservative free 05/22/2022 Pfizer Covid-19 Vaccine 12+ 12/16/2020, 1 Pneumococcal Polysaccharide PPSV23 08/28/2015 TD (adult), 2 Lf tetanus tox oid, preservative free, adsorbed 05/22/2022 Tdap 04/09/2012 Family History Medical History Relation Name Comments Coronary artery disease Father Hypertension Father Liver cancer Maternal Grandfather Breast cancer Maternal Grandmother Hyperlipidemia Mother Hypertension Mother Alzheimer's disease Other Diabetes Paternal Grandmother Relation Name Status Comments Father Maternal Grandfather Maternal Grandmother Mother Other Paternal Aunt Paternal Grandmother Social History Tobacco Use Types Packs/Day Years Used Date Smoking Tobacco: Former Cigarettes 0.5 12 2 2011 Smokeless Tobacco: Former Tobacco Cessation:Counseling Given: Not Answered Alcohol Use Standard Drinks/Week Comments Never 0 [...] with others, in a hotel, in a correction, living outside on the street, on a [...] the past 12 months, has t he [employer], gas, oil or water [employer] threatened to shut off services in your [...] Orientation Straight 04/15/2022 10 :20 AM EDT Last Filed Vital Signs Vital Sign Reading Time Taken Comments Blood Pressure 128/80 03/29/2025 11:40 AM EDT Pulse 89 03/29/2025 11:40 AM EDT Temperature 36.4 C (97.5 F) 03/29/2025 11:40 AM EDT Respiratory Rate 21 03/29/2025 11:40 AM EDT Oxygen Saturation 99% 03/29/2025 11:40 AM EDT Inhaled Oxygen Concentration - - Weight 88.6 kg (195 lb 6 oz) 03/29/2025 11:40 AM EDT Height 165.1 cm (5' 5 ) 03/29/2025 11:40 AM EDT Body Mass Index 32.51 03/29/2025 11:40 AM EDT Plan of Treatment Health Maintenance Due Date Last Done Comments CT Colonography 1975 Colonoscopy 1975 Colorectal Cancer Screening 1975 FIT DNA/Cologuard 1975 FIT 1975 FOBT 1975 Sigmoidoscopy 1975 Alcohol/Substance Use Screening 1987 Family Planning (PISQ) 09/05/1990 Pneumococcal Vaccine: Pediatrics (0 to 5 Years) and At-Risk Patients (6 to 49) Years (2 of 2 - PCV) 08/27/2016 08/28/2015 COVID-19 Vaccine ( - season) 2025 12/16/2020, 11/25/2020 Influenza Vaccine (#1) 2025 , 04/24/2021, 04/18/2020, Additional history exists Cervical Cancer Screening 06/12/2025 HPV/Cotest 06/12/2025 06/12/2020 Pap Smear 06/12/2025 06/12/2020 Zoster Vaccines (1 of 2) 09/05/2025 Depression Monitoring 09/27/2025 03/29/2025, 025 Disability Screening 10/30/2025 10/30/2024 Mammogram 01/08/2026 01/09/2024, 02/15, 03/09/2020, Additional history exists SDOH Screening 03/22/2026 03/22/2025 Tobacco Screening 03/29/2026 03/29/2025 Lipid Panel 12/29/2029 12/29/2024, 02/0 01/2025, 12/24/2023, Additional history exists DTaP/Tdap/Td Vaccines (3 - Td or Tdap) 05/22/2032 05/22/2022, 04/09/2012 RSV Patients and Patients Aged 60 years or older (1 - 1-dose 75+ series) 09/05/2050 Hepatitis A Vaccines Completed 10/04/2011, 04/30/2011, 11/26/2010 Hepatitis B Vaccines Completed 10/04/2011, 04/30/2011, 11/26/2010 HIV Screening Completed 09/10/2021, 04/27/2020 Hepatitis C Screening Completed 09/10/2021 , 04/27/2020, 10/06/2019 HIB Vaccines Aged Out No longer eligi [...] patient's age to complete this topic Meningococcal Vaccine Aged Out No lori maribell eligible based on patient's age to complete this topic RSV under 20 months Aged Out No longe r eligible based on patient's age to complete this topic Rotavirus Vaccines Aged Out No longer eligible based on patient's age to complete this topic Procedures Procedure Name Priority Date/Time Associated Diagnosis Comments XR KNEE 4+ VIEWS RIGHT Routine 9:35 AM EDT Chronic pain of both knees XR KNEE 4+ VIEWS LEFT Routine 04/15/2025 9:33 AM EDT Chronic pain of both knees LIPID PANEL, STANDARD Routine 12/29/2024 8:59 AM EDT BI MAMMOGRAM SCREENING TOMOSYNTHESIS BILATERAL Routine 01/09/2024 9:28 AM EDT ZZZ HISTORICAL HEPATITIS C AB W/REFL TO HCV RNA, QN, PCR Routine 09/10/2021 8:44 AM EDT HIV 1/2 ANTIGEN/ANTIBODY, FOURTH GENERATION W/RFL Routine 09/10/2021 8:44 AM EDT HM PAP/HPV Routine 06/12/2020 from Last 3 Months or Most Recently Relevant to Health Maintenance Results * XR Knee 4+ Views Right (04/15/2025 9:35 AM EDT) Anatomical Region Laterality Modality Lower Extremities, Knee Right Radiogra phic Imaging 04/15/2025 9:35 AM EDT Narrative 04/15/2025 9:51 AM EDT [address] [address] XRay Report Signed Patient: Marcela Lopez MR#: [id number] 2 : 1975 Acct:[id number] Age/Sex: 49 / F ADM Date: 04/15/25 Loc: HO.HHCX Attending Dr: Cassie Barnett DO Ordering Physician: Cassie Barnett DO Date of Service: 04/15/25 Procedure(s): XR knee RT 4V Accession Number(s): [id number] cc: Cassie Barnett DO Reason for Exam: worsening pain both knees EXAMINATION: XR KNEE 4 OR MORE VIEWS RIGHT HISTORY: worsening pain both knees COMPARISON: There are no prior studies available for comparison. FINDINGS: Four views of the right knee are submitted. Osseous mineralization is normal. There is no fracture or dislocation. The joint spaces are preserved. The soft tissues are unremarkable. There is no joint effusion. XR/XR knee RT 4V IMPRESSION: Unremarkable examination of the right knee. Electronically signed by: Niko Xiao MD 04/15/2025 09:48 AM EDT Dictated By: Niko Xiao MD Signed By: <Electronically signed by Niko Xiao MD in OV> 04/15/2548 DD/ TD/TT: 04/15/25935 Repossession Agent: Procedure Note Donotuseinterpreter, Image - 04/15/[address] [address] XRay Report Signed Patient: Marcela LopezMR#: [id number] 2 : 1975Acct:[id number] Age/Sex: 49 / FADM Date: 04/15/25 Loc: JOHNNY Attending Dr: Cassie Barnett DO Ordering Physician: Cassie Barnett DO Date of Service: 04/15/25 Procedure(s): XR knee RT 4V Accession Number(s): [id number] cc: Cassie Barnett DO Reason for Exam: worsening pain both knees EXAMINATION: XR KNEE 4 OR MORE VIEWS RIGHT HISTORY: worsening pain both knees COMPARISON: There are no prior studies available for comparison. FINDINGS: Four views of the right knee are submitted. Osseous mineralization is normal. There is no fracture or dislocation. The joint spaces are preserved. The soft tissues are unremarkable. There is no joint effusion. XR/XR knee RT 4V IMPRESSION: Unremarkable examination of the right knee. Electronically signed by: Niko Xiao MD 04/15/2025 09:48 AM EDT Dictated By: Niko Xiao MD Signed By: <Electronically signed by Niko Xiao MD in OV> 04/15/2548 DD/ TD/TT: 04/15/25935 Repossession Agent: Cassie Barnett DO IMG XR PROCEDURES Final Resu lt * XR Knee 4+ Views Left (04/15/2025 9:33 AM EDT) Anatomical Region Laterality Modality Lower Extremities, Knee Left [facility] 04/15/2025 9:33 AM EDT Narrative 04/15/2025 9:49 AM EDT [address] [address] XRay Report Signed Patient: Marcela Lopez MR#: [id number] 2 : 1975 Acct:[id number] Age/Sex: 49 / F ADM Date: 04/15/25 Loc: HO.HHCX Attending Dr: Cassie Barnett DO Ordering Physician: Cassie Barnett DO Date of Service: 04/15/25 Procedure(s): XR knee LT 4V Accession Number(s): [id number] cc: Cassie Barnett DO Reason for Exam: worsening pain both knees EXAMINATION: XR KNEE 4 OR MORE VIEWS LEFT HISTORY: worsening pain both knees COMPARISON: Comparison is made with the prior examination dated 04/30/2019. FINDINGS: Five views of the left knee are submitted. Osseous mineralization is normal. There is no fracture or dislocation. The joint spaces are preserved. The soft tissues are unremarkable. There is no joint effusion. XR/XR knee LT 4V IMPRESSION: Unremarkable examination of the left knee. Electronically signed by: Niko Xiao MD 04/15/2025 09:46 AM EDT RP Dictated By: Niko Xiao MD Signed By: <Electronically signed by Niko Xiao MD in OV> 04/15/25945 DD/ 2 TD/TT: 04/15/25935 Repossession Agent: Procedure Note Donotuseinterpreter, Image - 04/15/[address] [address] XRay Report Signed Patient: Marcela LopezMR#: [id number] 2 : 1975Acct:[id number] Age/Sex: 49 / FADM Date: 04/15/25 Loc: JOHNNY Attending Dr: Cassie Barnett DO Ordering Physician: Cassie Barnett DO Date of Service: 04/15/25 Procedure(s): XR knee LT 4V Accession Number(s): [id number] cc: Cassie Barnett DO Reason for Exam: worsening pain both knees EXAMINATION: XR KNEE 4 OR MORE VIEWS LEFT HISTORY: worsening pain both knees COMPARISON: Comparison is made with the prior examination dated 04/30/2019. FINDINGS: Five views of the left knee are submitted. Osseous mineralization is normal. There is no fracture or dislocation. The joint spaces are preserved. The soft tissues are unremarkable. There is no joint effusion. XR/XR knee LT 4V IMPRESSION: Unremarkable examination of the left knee. Electronically signed by: Niko Xiao MD 04/15/2025 09:46 AM EDT Dictated By: Niko Xiao MD Signed By: <Electronically signed by Niko Xiao MD in OV> 04/15/25945 DD/ 2 TD/TT: 04/15/25935 Repossession Agent: us Cassie Barnett DO IMG XR PROCEDURES Final Resu lt * (ABNORMAL) Lipid Panel, Standard (12/29/2024 8:59 AM EDT) Triglycerides 136 <150 mg/dL [facility] Comment:Desirable Triglyceri de: less than 150 mg/dLBorderline High Triglyceride 150-199 mg/dLHigh Triglyceride: 200-499 mg/dLVery High Triglyceride: greater than or equal to 5OO mg/dL Cholesterol 270(H) <200 mg/dL [facility] Comment:Desirable Cholestero l: less than 200 mg/dLBorderline High Cholesterol: 200-239 mg/dLHigh Cholesterol: greater than 239 mg/dL LDL Cholesterol Calculated 181(H) <100 mg/dL [facility] Comment:Desirable LDL: less than 100 mg/dLNear Optimal/Above Optimal LDL: 110- 129 mg/dLBorderline High LDL: 130-159 mg/dLHigh LDL: 160-189 mg/dLVery High LDL: greater than or equal to 190 mg/dL HDL Cholesterol 62 >40 mg/dL [facility] Comment:Desirable HDL: great er than 40 mg/dL Note: This HDL assay may give artificially low results in patients with liver disease. 12/29/2024 8:59 AM EDT 12/29/2024 8:59 AM EDT us Generic External Data Provider LAB BLOOD ORDERAB LES Final Result [facility] [address] [place] [phone] * BI Mammogram Screening Tomosynthesis Bilateral (01/09/2024 9:28 AM EDT) Anatomical Region Laterality Modality Breast Bilateral Mammography 01/09/2024 9:28 AM EDT Narrative 01/19/2024 11:18 PM EDT [facility] [place] [address] Mammography Report Signed Patient: Marcela Lopez MR#: [id number] 2 : 1975 Acct:[id number] Age/Sex: 48 / F ADM Date: 01/09/24 Loc: HO.MAMMO Attending Dr: Cassie Barnett DO Ordering Physician: Cassie Barnett DO Results: 2B enign Findings Date of Service: 01/09/24 Follow Up: 1 Year From [facility] Mammogram Procedure(s): MM tomosynthesis screening BI Accession Number(s): [id number] cc: Cassie Barnett DO EXAMINATION: MM SCREENING DIGITAL BREAST TOMOSYNTHESIS, BILATERAL CLINICAL INFORMATION: Screening. Asymptomatic. COMPARISON: Mammography: This study is compared with prior exams dating back to 2019. TECHNIQUE: Digital breast tomosynthesis is performed in both the craniocaudal and mediolateral oblique views along with computer-aided detection (CAD). Synthesized 2D images are generated from the tomosynthesis. FINDINGS: There are scattered areas of fibroglandular density (ACR BI-RADS breast composition Category b). There are no significant masses, abnormal calcifications, or other abnormalities. There is a tissue marker in the right breast from prior benign percutaneous biopsy. It is associated with an upper outer quadrant, oval, benign mass. MM/MM tomosynthesis screening BI IMPRESSION: No mammographic evidence of malignancy. ASSESSMENT: BI-RADS BI-RADS 2 - Benign Findings RECOMMENDATION: Routine annual mammography screening. 1 year F/U This examination should not preclude the clinical evaluation of a suspicious palpable abnormality. This patient's information was entered into a reminder system with a target due date for their next mammogram. Dictated By: Zoey Knowles MD Signed By: <Electronically signed by Zoey Knowles MD in OV> 01/19/242313 DD/ 7 TD/TT: Repossession Agent: Procedure Note Donotuseinterpreter, Image - [facility] [address] [place] [address] Mammography Report Signed Patient: Marcela LopezMR#: [id number] 2 : 1975Acct:[id number] Age/Sex: 48 / FADM Date: 01/09/24 Loc: HO.MAMMO Attending Dr: Cassie Barnett DO Ordering Physician: Cassie Barnettults: 2B enign Findings Date of Service: 01/09/24Follow Up: 1 Year From Orig inal Mammogram Procedure(s): MM tomosynthesis screening BI Accession Number(s): [id number] cc: Cassie Barnett DO EXAMINATION: MM SCREENING DIGITAL BREAST TOMOSYNTHESIS, BILATERAL CLINICAL INFORMATION: Screening. Asymptomatic. COMPARISON: Mammography: This study is compared with prior exams dating back to 2019. TECHNIQUE: Digital breast tomosynthesis is performed in both the craniocaudal and mediolateral oblique views along with computer-aided detection (CAD). Synthesized 2D images are generated from the tomosynthesis. FINDINGS: There are scattered areas of fibroglandular density (ACR BI-RADS breast composition Category b). There are no significant masses, abnormal calcifications, or other abnormalities. There is a tissue marker in the right breast from prior benign percutaneous biopsy. It is associated with an upper outer quadrant, oval, benign mass. MM/MM tomosynthesis screening BI IMPRESSION: No mammographic evidence of malignancy. ASSESSMENT: BI-RADS BI-RADS 2 - Benign Findings RECOMMENDATION: Routine annual mammography screening. 1 year F/U This examination should not preclude the clinical evaluation of a suspicious palpable abnormality. This patient's information was entered into a reminder system with a target due date for their next mammogram. Dictated By: Zoey Knowles MD Signed By: <Electronically signed by Zoey Knowles MD in OV> 01/19/242313 DD/ 7 TD/TT: Repossession Agent: Cassie Barnett DO IMG BI PROCEDURES Final Resu lt * HEPATITIS C AB W/REFL TO HCV RNA, QN, PCR (09/10/2021 8:44 AM EDT) HEPATITIS C ANTIBODY NON-REACT NINA NON-REACT NINA [facility] INDEX 0.01 <1.00 [facility] Comment: HCV antibody was non-reactive. There is no laboratory evidence of HCV infection. In most cases, no further action is required. However, if recent HCV exposure is suspected, a test for HCV RNA (test code 06300) is suggested. For additional information please refer to http://Zyrra.HihoCoder/faq/FZZ21t1 (This link is being provided for informational/ educational purposes only.) 09/10/2021 8:44 AM EDT Cassie Barnett DO HISTORICAL/NON ORDERABLE LAB S Final Result [facility] [address] * HIV 1/2 ANTIGEN/ANTIBODY,FOURTH GENERATION W/RFL (09/10/2021 8:44 AM EDT) HIV-1/2 ANTIGEN AND ANTIBODIES, 4TH GENERATION W/ REFLEX NON-REACT NINA NON-REACT NINA [facility] Comment: HIV-1 antigen and HIV-1/HIV-2 antibodies were not detected. There is no laboratory evidence of HIV infection. PLEASE NOTE: This information has been disclosed to you from records whose confidentiality may be protected by state law. If your state requires such protection, then the state law prohibits you from making any further disclosure of the information without the specific written consent of the person to whom it pertains, or as otherwise permitted by law. A general authorization for the release of medical or other information is NOT sufficient for this purpose. For additional information please refer to http://Zyrra.HihoCoder/faq/RGM425 (This link is being provided for informational/ educational purposes only.) The performance of this assay has not been clinically validated in patients less than 2 years old. 09/10/2021 8:44 AM EDT Cassie Barnett DO LAB BLOOD ORDERABLES Final R esult [facility] [address] * Hm Pap Smear (06/12/2020) Pap Negative for intraephithelial lesion or malignancy Negative for intraephithelial lesion or malignancy, Other HPV Undetected Undetected, Indeterminate, Quantitative, Not Detected Historical Provider HEALTH MAINTENANCE Final Result from Last 3 Months or Most Recently Relevant to Health Maintenance Insurance [employer] C3 Care Teams Wire Weaving Loom Setter Relationship Specialty Start Date End Date Cassie Barnett DO [address] [place] [id number] PCP - General Family Medicine 12/29/18 Frederick Heaton FNP [address] [place] [address] Nurse Practitioner Family Medicine 05/20/23
--- OUTSIDE RECORDS SUMMARY | 2025-04-15 09:59 | XMS_ITS | Encounter Summary ---
Author Organization [employer] Address [address] [facility] 7 [place] [address] Care Team Providers Care Machine Printer Name Role Phone Cassie Barnett DO Primary Care Provider + [phone] Frederick Heaton Unavailable Unavailable Reason for Visit * Reason Comments Med Refill Encounter Details Date Type Department Care Team (Late st Contact Info) Description 09/02/2022 Refill [facility] MEDICINE [address] [place], [place] [phone] Eileen Jesus MD [address] [place], [place] [phone] Social History Tobacco Use Types Packs/Day Years Used Date Smoking Tobacco: Former Cigarettes 0.5 12 2 000 - 2011 Smokeless Tobacco: Former Alcohol Use [...] Noted Time PHQ-9 Depression Total Score: 14 022 9:35 AM EST documented as of this encounter Care Teams Machine Printer Relationship Specialty Start Date End Date Cassie Barnett DO [address] [place], [place] [phone] PCP - General Family Medicine 12/29/18 Frederick Heaton FNP [address] [place] [address] Nurse Practitioner Family Medicine 05/20/23 documented as of this encounter
--- OUTSIDE RECORDS SUMMARY | 2025-04-15 09:59 | XMS_ITS | Encounter Summary ---
Author Organization [employer] Address 75 [facility] 7t [place] [address] Care Team Providers Care Timber Framer Name Role Phone Cassie Barnett DO Primary Care Provider + [phone] Frederick Heaton Unavailable Unavailable Reason for Visit * Reason Comments Med Refill Encounter Details Date Type Department Care Team (Late st Contact Info) Description 12/02/2024 Refill [facility] MED & PEDS [address] [place] [address] Cassie Barnett DO [address] [place] [address] Social History Tobacco Use Types Packs/Day Years Used Date Smoking Tobacco: Former Cigarettes 0.5 2 000 - 2011 Smokeless Tobacco: Former Alcohol Use Standard Drinks/Week Comments Never 0 (1 standard drink = 0.6 oz pur e alcohol) Depression Answer Date Recorded Patient Health Questionnaire-9 Score 19 01/29/2024 Patient Health Questionnaire-9 Score 19 01/29/2024 Last PHQ-9: Questionnaire Data Not on file 0 01/29/2024 Housing Stability Answer Date Recorded What is your housing situation today? I do not have housing (Staying with others, in a hotel, in a skilled nursing, living outside on the street, on a beach, in a car, or in a park 03/25/[address] you li ve. Do you have problems with any of the following? None of the above 03/25/2023 Food Insecurity Answer Date Recorded Within the past 12 months, y ou worried that your food would run out before you got money to buy more: Sometimes True 2023 Within the past 12 months,th e food you bought just didn't last and you didn't have enough money to get more: Sometimes True 12/30/2023 Transportation Answer Date Recorded In the past 12 months, has l ack of transportation kept you from medical appts, meetings, work or from getting things needed for daily living? Yes, it has kept me from medical appointments or getting medications. 12/30/2023 Utilities Answer Date Recorded In the past 12 months, has t he electric, gas, oil or water company threatened to shut off services in your home? No 04/02/2023 Depression Answer Date Recorded Patient Health Questionnaire-2 Score 4 01/29/2024 Internet Access Answer Date Recorded Internet Access Q1 Yes 02/13/2024 Internet Access Q2 Not on file 02/13/2024 Comments No Sex and Gender Information Value [...] Assessment Noted Time PHQ-9 Depression Total Score: 19 024 10:22 AM EDT documented as of this encounter Care Teams Timber Framer Relationship Specialty Start Date End Date Cassie Barnett DO [address] [place] [address] PCP - General Family Medicine 12/29/18 Frederick Heaton FNP [address] [place] [address] Nurse Practitioner Family Medicine 05/20/23 documented as of this encounter
--- OUTSIDE RECORDS SUMMARY | 2025-04-15 09:59 | XMS_ITS | Encounter Summary ---
Author Organization [employer] Address 75 [facility] 7t [place] [address] Care Team Providers Care Switchboard Installer Name Role Phone Cassie Barnett DO Primary Care Provider + [phone] Frederick Heaton Unavailable Unavailable Reason for Visit * Reason Comments Med Refill Encounter Details Date Type Department Care Team (Late st Contact Info) Description 12/16/2024 Refill [facility] CH[facility] MED & PEDS [address] [place] [address] Cassie Barnett DO [address] [place] [address] Social History Tobacco Use Types Packs/Day Years [...] with others, in a hotel, in a nursing home, living outside on the street, on a [...] documented as of this encounter Care Teams Switchboard Installer Relationship Specialty Start Date End Date Cassie Barnett DO [address] [place] [address] PCP - General Family Medicine 12/29/18 Frederick Heaton FNP [address] [place] [address] Nurse Practitioner Family Medicine 05/20/23 documented as of this encounter
--- OUTSIDE RECORDS SUMMARY | 2025-04-15 09:59 | XMS_ITS | Encounter Summary ---
Author Organization [employer] Address 75 [facility] 7 [place] [address] Care Team Providers Care Cow Rider Name Role Phone Cassie Barnett DO Primary Care Provider + [phone] Frederick Heaton Unavailable Unavailable Reason for Visit * Reason Comments Med Refill Encounter Details Date Type Department Care Team (Late st Contact Info) Description 01/04/2023 Refill [facility] MEDICINE [address] [place], [place] [phone] Cassie Barnett DO [address] [place], [place] [phone] Hyperlipidemia, unspecified hyperlipidemia type; Hypertension, unspecified type [...] documented as of this encounter Care Teams Cow Rider Relationship Specialty Start Date End Date Cassie Barnett DO [address] [place] [address] PCP - General Family Medicine 12/29/18 Frederick Heaton FNP [address] [place] [phone] Nurse Practitioner Family Medicine 05/20/23 documented as of this encounter
--- OUTSIDE RECORDS SUMMARY | 2025-04-15 09:59 | XMS_ITS | Encounter Summary ---
Author Organization [employer] Address 75 [facility] 7 [place] [address] Care Team Providers Care Film Numberer Name Role Phone Cassie Barnett DO Primary Care Provider +[phone] Frederick Heaton Unavailable Unavailable Encounter Details Date Type Department Care Team (Late st Contact Info) Description 08/12/2022 Abstract [facility] MED[facility]INE [address] [place] [address] Cassie Barnett DO [address] [place] [address] Social History Tobacco Use Types Packs/Day Years [...] documented as of this encounter Care Teams Film Numberer Relationship Specialty Start Date End Date Cassie Barnett DO [address] [place] [address] PCP - General Family Medicine 12/29/18 Frederick Heaton FNP [address] [place] [address] Nurse Practitioner Family Medicine 05/20/23 documented as of this encounter
--- OUTSIDE RECORDS SUMMARY | 2025-04-15 09:59 | XMS_ITS | Encounter Summary ---
Author Organization [email or web address] Address 75 [facility] 7t [place] [address] Care Team Providers Care Office Services Associate Name Role Phone Cassie Barnett DO Primary Care Provider + [phone] Frederick Heaton Unavailable Unavailable Reason for Visit * Reason Comments Med Refill Encounter Details Date Type Department Care Team (Late st Contact Info) Description 01/23/2025 Refill [facility] MED & PEDS [address] [place] [address] Cassie Barnett DO [address] [place] [address] Social History Tobacco Use Types Packs/Day Years [...] with others, in a hotel, in a senior care, living outside on the street, on a [...] documented as of this encounter Care Teams Office Services Associate Relationship Specialty Start Date End Date Cassie Barnett DO [address] [place] [address] PCP - General Family Medicine 12/29/18 Frederick Heaton FNP [address] [place] [address] Nurse Practitioner Family Medicine 05/20/23 documented as of this encounter
--- OUTSIDE RECORDS SUMMARY | 2025-04-15 09:59 | XMS_ITS | Encounter Summary ---
Author Organization [employer] Address [address] [facility] 7t [place] [address] Care Team Providers Care Director Operating Room Name Role Phone Cassie Barnett DO Primary Care Provider + [phone] Frederick Heaton Unavailable Unavailable Reason for Visit * Reason Comments Med Refill Encounter Details Date Type Department Care Team ([facility] st Contact Info) Description 03/20/2025 Refill [facility] CH[facility] MED & PEDS [address] [place] [address] Cassie Barnett DO [address] [place] [address] Social History Tobacco Use Types Packs/Day Years [...] with others, in a hotel, in a prison, living outside on the street, on a [...] documented as of this encounter Care Teams Director Operating Room Relationship Specialty Start Date End Date Cassie Barnett DO [address] [place] [address] PCP - General Family Medicine 12/29/18 Frederick Heaton FNP [address] [place] [address] Nurse Practitioner Family Medicine 05/20/23 documented as of this encounter
--- OUTSIDE RECORDS SUMMARY | 2025-04-15 09:59 | XMS_ITS | Encounter Summary ---
Author Organization [employer] Address [address] [facility] 7t [place] [address] Care Team Providers Care Commercial Lines Account Assistant Name Role Phone Cassie Barnett DO Primary Care Provider + [phone] Frederick Heaton Unavailable Unavailable Encounter Details Date Type Department Care Team (Late st Contact Info) Description 01/05/2024 Orders Only [facility] MEDICINE [address] [place], [place] [phone] Eileen Jesus MD [address] [place] [address] Social History Tobacco Use Types Packs/Day Years Used Date Smoking Tobacco: Former Cigarettes 0.5 12 2 000 - 2011 Smokeless Tobacco: Former Alcohol Use Standard Drinks/Week Comments Never 0 (1 standard drink = 0.6 oz pur e alcohol) Depression Answer Date Recorded Patient Health Questionnaire-9 Score 9 12/30/2023 Patient Health Questionnaire-9 Score 9 12/30/2023 Last PHQ-9: Questionnaire Data Not on file 0 12/30/2023 Housing Stability Answer Date Recorded What is [...] Answer Date Recorded Patient Health Questionnaire-2 Score 3 12/30/2023 Comments No Sex and Gender Information Value [...] Assessment Noted Time PHQ-9 Depression Total Score: 9 12/30/19 24 9:13 AM EDT documented as of this encounter Care Teams Commercial Lines Account Assistant Relationship Specialty Start Date End Date Cassie Barnett DO [address] [place] [address] PCP - General Family Medicine 12/29/18 Frederick Heaton FNP [address] [place] [address] Nurse Practitioner Family Medicine 05/20/23 documented as of this encounter
--- OUTSIDE RECORDS SUMMARY | 2025-04-15 10:02 | XMS_ITS | Encounter Summary ---
Author Organization [employer] Address [address] [facility] 7t [place] [address] Care Team Providers Care Pipefitter Helper Name Role Phone Cassie Barnett DO Primary Care Provider + [phone] Frederick Heaton Unavailable Unavailable Reason for Visit * Reason Comments Med Refill Encounter Details Date Type Department Care Team (Late st Contact Info) Description 12/10/2023 Refill [facility] MEDICINE [address] [place] [address] Frederick Heaton FNP Social History Tobacco Use Types Packs/Day Years Used Date Smoking Tobacco: Former Cigarettes 0.5 2011 Smokeless Tobacco: Former Alcohol Use Standard Drinks/Week Comments Never 0 (1 standard drink = 0.6 oz pur e alcohol) Depression Answer Date Recorded Patient Health Questionnaire-9 Score 8 04/07/2023 Patient Health Questionnaire-9 Score 8 04/07/2023 Last PHQ-9: Questionnaire Data Not on file 1 Housing Stability Answer Date Recorded What is your housing situation today? I do not have housing (Staying with others, in a hotel, in a longterm, living outside on the street, on a beach, in a car, or in a park 03/25/[address] you li ve. Do you have problems with any of the following? None of the above 03/25/2023 Food Insecurity Answer Date Recorded Within the past 12 months, y ou worried that your food would run out before you got money to buy more: Often true 04/02/2023 Within the past 12 months,th e food you bought just didn't last and you didn't have enough money to get more: Often true Transportation Answer Date Recorded In the past 12 months, has l ack of transportation kept you from medical appts, meetings, work or from getting things needed for daily living? No 04/02/2023 Utilities Answer Date Recorded In the past 12 months, has t he electric, gas, oil or water company threatened to shut off services in your home? No 04/02/2023 Depression Answer Date Recorded Patient Health Questionnaire-2 Score 0 04/07/2023 Comments Unknown Sex and Gender Information Value [...] Assessment Noted Time PHQ-9 Depression Total Score: 8 04/07/20 2:43 PM EDT documented as of this encounter Care Teams Pipefitter Helper Relationship Specialty Start Date End Date Cassie Barnett DO [address] [place] [address] PCP - General Family Medicine 12/29/18 Frederick Heaton FNP [address] [place] [address] Nurse Practitioner Family Medicine 05/20/23 documented as of this encounter
--- OUTSIDE RECORDS SUMMARY | 2025-04-15 10:03 | XMS_ITS | Encounter Summary ---
Author Organization [employer] Address [address] [facility] 7 [place] [address] Care Team Providers Care Hot Sealing Machine Operator Name Role Phone Cassie Barnett DO Primary Care Provider + [phone] Frederick Heaton Unavailable Unavailable Reason for Visit * Reason Onset Date Comments Nurse Triage 12/16/2023 Encounter Details Date Type Department Care Team ([facility] st Contact Info) Description 12/16/2023 Telephone [facility] MEDICINE [address] [place], [place] [phone] Cassie Barnett DO [address] [place] [address] Nurse Triage Social History Tobacco Use Types Packs/Day Years [...] encounter Miscellaneous Notes * Telephone Encounter - Wendy Dennison RN - 12/16/2023 4:36 PM EDT Called pt. [facility] specialist [phone] [place]. Pt. States that she has a congested cough and does not feel well. Pt. Has not done a Covid test. No fever. Pt feels like it is her allergies and states she is all out of her medications so she needs refills. I advised pt to also drink water and warm tea. Pt. Denies chest pain, SOB at present but feels tired and has a non productive chest cough x3 days. Pt will come into [facility] walk in tomorrow 12/17/23 at 830am for assessment and care. Protocol Used: Cough (Adult) Protocol-Based Disposition: See in Office or Video Visit Today or Tomorrow- Pt. Will come into [facility] walk in when it opens tomorrow 12/17/23. 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[employer]) Pt 1/2 documented in this encounter Plan of Treatment Not on file documented as of this encounter Visit Diagnoses Diagnosis Seasonal allergic rhinitis due to other allergic trigger documented in this encounter Additional Health Concerns Assessment Noted Time PHQ-9 Depression Total Score: 8 04/07/20 2:43 PM EDT documented as of this encounter Care Teams Hot Sealing Machine Operator Relationship Specialty Start Date End Date Cassie Barnett DO [address] [place] [address] PCP - General Family Medicine 12/29/18 Frederick Heaton FNP [address] [place] [address] Nurse Practitioner Family Medicine 05/20/23 documented as of this encounter
--- OUTSIDE RECORDS SUMMARY | 2025-04-15 10:03 | XMS_ITS | Encounter Summary ---
Author Organization [employer] Address [address] [facility] 7t [place] [address] Care Team Providers Care Ornamenter Hand Name Role Phone Cassie Barnett DO Primary Care Provider + [phone] Frederick Heaton Unavailable Unavailable Reason for Visit * Reason Onset Date Comments Med Refill 06/18/2022 Encounter Details Date Type Department Care Team ([facility] st Contact Info) Description 06/18/2022 Telephone [facility] MEDICINE [address] [place], [place] [phone] Cassie Barnett DO [address] [place] [address] Med Refill Social History Tobacco Use Types Packs/Day Years Used Date Smoking Tobacco: Former Cigarettes 0.5 12 2 - 2011 Smokeless Tobacco: Former Alcohol Use Standard Drinks/Week Comments Never 0 (1 standard drink = 0.6 oz pur e alcohol) Comments Unknown Sex and Gender Information Value Date Recorded Sex Assigned at Female 04/15/2022 10:20 AM EDT Legal Sex Female 10:20 AM EDT Gender Identity Female 04/15/2022 10:20 AM EDT Sexual Orientation Straight 04/15/2022 10 :20 AM EDT COVID-19 Exposure Response Date Recorded In the last 10 days, have yo u been in contact with someone who was confirmed or suspected to have Coronavirus/COVID-19? No / Unsure 05/22/2022 9:20 AM EST documented as of this encounter Miscellaneous Notes * Telephone Encounter - Alena Stewart - 06/18/2022 3:16 PM EST Tc from Pt requesting a med refill for Tramadol 50mg. Pt is on Pr had a family emergency. PCP Dr. Barnett documented in this encounter Plan of Treatment Not on file documented as of this encounter Visit Diagnoses Not on filedocumented in this encounter Additional Health Concerns Assessment Noted Time PHQ-9 Depression Total Score: 14 022 9:35 AM EST documented as of this encounter Care Teams Ornamenter Hand Relationship Specialty Start Date End Date Cassie Barnett DO [address] [place] [address] PCP - General Family Medicine 12/29/18 Frederick Heaton FNP [address] [place] [address] Nurse Practitioner Family Medicine 05/20/23 documented as of this encounter
== END 2025-04-15 09:08 | disposition home or self-care (01) ==
LOC: HO.HHCX 09:07
PROVIDERS: PCP Family Medicine; Visit Provider Family Medicine
DX: M25.561 Pain in right knee (principal); M25.562 Pain in left knee; G89.29 Other chronic pain
CPT/HCPCS: 73564

== ENCOUNTER → 2025-04-15 09:10 | Outpatient (BNV) | payer MEDICAID, SELFPAY | PROVIDERS: PCP Family Medicine; Visit Provider Radiology Diagnostic Radiology | DX: M25.562 Pain in left knee (principal); M25.561 Pain in right knee | CPT/HCPCS: 73564 ==

== ENCOUNTER 2025-04-19 09:41 | Outpatient (REF) | payer MEDICAID, SELFPAY ==
--- OUTSIDE RECORDS SUMMARY | 2025-04-19 10:55 | XMS_ITS | Encounter Summary ---
Author Organization [employer] Address [address] [facility] 7t [place] [address] Care Team Providers Care Sodium Methylate Operator Name Role Phone Cassie Barnett DO Primary Care Provider + [phone] Frederick Heaton Unavailable Unavailable Reason for Visit * Reason Comments Med Refill Encounter Details Date Type Department Care Team (Late st Contact Info) Description 12/16/2024 Refill [facility] CHC MED & PEDS [address] [place] [address] Cassie Barnett DO [address] [place] [address] Social History Tobacco Use Types Packs/Day Years [...] with others, in a hotel, in a custodial, living outside on the street, on a [...] documented as of this encounter Care Teams Sodium Methylate Operator Relationship Specialty Start Date End Date Cassie Barnett DO [address] [place] [address] PCP - General Family Medicine 12/29/18 Frederick Heaton FNP [address] [place] [address] Nurse Practitioner Family Medicine 05/20/23 documented as of this encounter
--- OUTSIDE RECORDS SUMMARY | 2025-04-19 10:55 | XMS_ITS | Encounter Summary ---
Author Organization [employer] Address [address] [facility] 7t [place] [address] Care Team Providers Care Retail Training Manager Name Role Phone Cassie Barnett DO Primary Care Provider + [phone] Frederick Heaton Unavailable Unavailable Reason for Visit * Reason Comments Med Refill Encounter Details Date Type Department Care Team (Late st Contact Info) Description 01/23/2025 Refill [facility] CHC MED & PEDS [address] [place] [address] Cassie Barnett DO [address] [place] [address] Social History Tobacco Use Types Packs/Day Years [...] with others, in a hotel, in a jail, living outside on the street, on a [...] documented as of this encounter Care Teams Retail Training Manager Relationship Specialty Start Date End Date Cassie Barnett DO [address] [place] [address] PCP - General Family Medicine 12/29/18 Frederick Heaton FNP [address] [place] [address] Nurse Practitioner Family Medicine 05/20/23 documented as of this encounter
--- OUTSIDE RECORDS SUMMARY | 2025-04-19 10:55 | XMS_ITS | Encounter Summary ---
Author Organization [employer] Address [address] [facility] 7 [place] [address] Care Team Providers Care Processing Spec Name Role Phone Cassie Barnett DO Primary Care Provider + [phone] Frederick Heaton Unavailable Unavailable Reason for Visit * Reason Comments Med Refill Encounter Details Date Type Department Care Team (Late st Contact Info) Description 09/02/2022 Refill [facility] MEDICINE [address] [place], [place] [phone] Eileen Jesus MD [address] [place], [place] [phone] Social History Tobacco Use Types Packs/Day Years [...] documented as of this encounter Care Teams Processing Spec Relationship Specialty Start Date End Date Cassie Barnett DO [address] [place], [place] [phone] PCP - General Family Medicine 12/29/18 Frederick Heaton FNP [address] [place] [address] Nurse Practitioner Family Medicine 05/20/23 documented as of this encounter
--- OUTSIDE RECORDS SUMMARY | 2025-04-19 10:55 | XMS_ITS | Clinical Summary ---
Author Organization [place] [address] [facility] Building Address [address] [place] [address] Phone Care Team Providers Care Track Supervisor Name Role Phone Nadya Barnettfer Sebastian LOPEZ Primary Care Provider [phone] Surgical History Surgery Date Site/Laterality Comments OTHER SURGICAL HISTORY 1999 PROCEDURE: TX LIG/TRNSXJ FLP TUBE ABDL/VAG APPR UNI/BI; COMMENT: [place] SECTION PROCEDURE: TX DELIVERY ONLY CERVICAL BIOPSY W/ LOOP ELECTRODE EXCISION 11/07/2009 PROCEDURE: TX CONIZATION CERVIX W/WO D&C RPR ELTRD EXC; COMMENT: [facility] Medical History Medical History Date Comments [...] Last Done Comments Breast Cancer Screening 1975 Colorectal Cancer Screening: Colonoscopy 1975 DTaP,Tdap,and Td Vaccines (1 - Tdap) 09/05/1994 HIV Screening 05/25/2022 Hepatitis C Screening 05/25/2022 Social Influencers of Health Screening 05/25/2022 Cervical Cancer Screening: P ap Smear 06/12/2023 06/12/2020 Depression Screening 06/16/2024 COVID-19 Vaccine (2023-2 5 season) 2025 Influenza Vaccine (#1) 2025 RSV Immunization Adult Patients (1 - 1-dose 75+ series) 09/05/2050 Hepatitis A Vaccines Aged Out 10/04/2011, 04/30/2011, [...] RESULTING AGENCY - 06/14/2020 12:20 PM EST [id number] THINPREP PAP, IMAGED: NEGATIVE FOR SQUAMOUS INTRAEPITHELIAL [...] Most Recently Relevant to Health Maintenance Insurance MEDICAID - [place] Care Teams Track Supervisor Relationship Specialty Start Date End Date Cassie Barnett DO [address] [place] [address] PCP - General Internal Medicine 01/17/14
--- OUTSIDE RECORDS SUMMARY | 2025-04-19 10:55 | XMS_ITS | Encounter Summary ---
Author Organization [employer] Address [address] [facility] 7 [place] [address] Care Team Providers Care Meter Installer And Remover Name Role Phone Cassie Barnett DO Primary Care Provider + [phone] Frederick Heaton Unavailable Unavailable Reason for Visit * Reason Comments Med Refill Encounter Details Date Type Department Care Team (Late st Contact Info) Description 01/04/2023 Refill [facility] MEDICINE [address] [place], [place] [phone] Cassie Barnett DO [address] [place], [place] [phone] Hyperlipidemia, unspecified hyperlipidemia type; Hypertension, unspecified type [...] documented as of this encounter Care Teams Meter Installer And Remover Relationship Specialty Start Date End Date Cassie Barnett DO [address] [place] [address] PCP - General Family Medicine 12/29/18 Frederick Heaton FNP [address] [place] [address] Nurse Practitioner Family Medicine 05/20/23 documented as of this encounter
--- OUTSIDE RECORDS SUMMARY | 2025-04-19 10:55 | XMS_ITS | Encounter Summary ---
Author Organization [employer] Address [address] [facility] [address] [place] [address] Care Team Providers Care Director Drug Safety Name Role Phone Cassie Barnett DO Primary Care Provider + [phone] Frederick Heaton Unavailable Unavailable Reason for Visit * Reason Comments Med Refill Encounter Details Date Type Department Care Team (Late st Contact Info) Description 12/02/2024 Refill [facility] CHC MED & PEDS [address] [place] [address] Cassie Barnett DO [address] [place] [address] Social History Tobacco Use Types Packs/Day Years [...] with others, in a hotel, in a fci, living outside on the street, on a [...] as of this encounter Care Teams Director Drug Safety Relationship Specialty Start Date End Date Cassie Barnett DO [address] [place] [address] PCP - General Family Medicine 12/29/18 Frederick Heaton FNP [address] [place] [address] Nurse Practitioner Family Medicine 05/20/23 documented as of this encounter
--- OUTSIDE RECORDS SUMMARY | 2025-04-19 10:55 | XMS_ITS | Encounter Summary ---
Author Organization [employer] Address [address] [facility] [address] [place] [address] Care Team Providers Care Cyber Intel Planner Name Role Phone LamonteCassie del cid Primary Care Provider +[phone] Frederick Heaton Unavailable Unavailable Reason for Visit * Reason Onset Date Comments letter 04/15/2025 DTA Form 04/15/2025 The patient left a message, regarding a DTA form that was dropped off at [facility] on 03/19/25. I returned her call, and informed her that the form is on the provider's desk, pending signature. She stated that she will be going to the [facility] lab today, and will then go to [facility], to check on the status of it again. Encounter Details Date Type Department Care Team (Late st Contact Info) Description 04/15/2025 Telephone [facility] MEDICINE [address] [place] [address] Cassie Barnett DO [address] [place], [place] [phone] letter; DTA Form (The patient left a message, regarding a DTA form that was dropped off at [facility] on 03/19/25. I returned her call, and informed her that the form is on the provider's desk, pending signature. She stated that she will be going to the [facility] lab today, and will then go to [facility], to check on the status of it again.) Social History Tobacco Use Types Packs/Day Years Used Date Smoking Tobacco: Former Cigarettes 0.5 12 - 2011 Smokeless Tobacco: Former Alcohol Use [...] with others, in a hotel, in a chcf, living outside on the street, on a [...] encounter Miscellaneous Notes * Telephone Encounter - Nichole Clay MA - 04/19/2025 8:51 AM EST The patient left a message, regarding a DTA form that was dropped off at [facility] on 03/19/25. I returnedher call, and informed her that it is on the provider's desk, pending signature. She stated that she will be going to the [facility] lab today, and will then go to [facility], to check on the status of the form again. * Telephone Encounter - Rosaline Rivas RN - 04/18/2025 2:33 PM EST TC returned to pt. Pt. Reports she came to [facility] to request letter around approx first week of March, filled out letter request and ALF. Was told she need to see PCP prior to obtaining letter. Pt. SawPCP 03/29/25 and is inquiring if letter can now be generated. Informed pt. I would send this request to forms department for follow up. * Telephone Encounter - Milan Mendez - 04/15/2025 9:44 AM EDT Tc from pt requesting update on form with diagnosis that states she can not work , that was discussed during last apt so pt is able to apply for [place] benefits Contact pt at [phone] (greek) documented in this encounter Plan of Treatment Not on file documented as of this encounter Visit Diagnoses Not on filedocumented in this encounter Additional Health Concerns Assessment Noted Time PHQ-9 Depression Total Score: 10 025 1:34 PM EDT documented as of this encounter Care Teams Cyber Intel Planner Relationship Specialty Start Date End Date Cassie Barnett DO [address] [place] [address] PCP - General Family Medicine 12/29/18 Frederick Heaton FNP [address] [place] [address] Nurse Practitioner Family Medicine 05/20/23 documented as of this encounter
--- OUTSIDE RECORDS SUMMARY | 2025-04-19 10:55 | XMS_ITS | Clinical Summary ---
Author Organization [employer] Address [address] [facility] 7t [place] [address] Care Team Providers Care Aluminum Boat Inspector Name Role Phone Cassie Barnett DO Primary Care Provider + [phone] Frederick Heaton Unavailable Unavailable Allergies No known [...] 2 sprays each nostril bid prn rhinorrhea, citizen of [place] 15 mL 024 Active aspirin (Aspirin Low Dose) 81 MG EC tabletIndications :Hyperlipidemia, unspecified hyperlipidemia type Take 1 tablet (81 mg) by mouth at bedtime. 90 tablet 024 Active lisinopril 20 MG tabletIndications :Hypertension, unspecified type Take 0.5 tablets (10 mg) by mouth Once per day. 90 tablet Active Blood Pressure Monitoring (Blood Pressure Cuff) [facility] Use daily as prescribed 1 each Active [...] go to ER and expect called to [facility] ER for left lower quadrant pain Homelessness [...] Stress Disorder), and homelessness. During IBH Consult Marcela presenting with Abnormally elevated mood, Flight of [...] information about Crisis and Respite programs with [facility]. She denies Safety plan at this moment. [...] intervention , Patient to reach out to [facility] team as needed, Comply with medication , [...] retiring, pt will be referred to new [facility] psychiatric provider. Pt is aware that appts will be via televisit, and that provider will not be employee of [facility]. She gives permission to share PHI. Any issues or concerns, contact [facility]. All her questions were answered and I [...] Type Department Care Team Description 04/15/2025 Telephone [facility] [address] [place] [phone] Cassie Barnett DO letter; DTA Form (The patient left a message, regarding a DTA form that was dropped off at [facility] on 03/19/25. I returned her call, and informed her that the form is on the provider's desk, pending signature. She stated that she will be going to the [facility] lab today, and will then go to [facility], to check on the status of it again.) 04/05/2025 Telephone [facility] [place] [address] Cassie Barnett DO telephone call 03/29/2025 11:30 AM EDT Office Visit [address] [address] Cassie Barnett DO Fatty liver (Primary Dx); Other hyperlipidemia; Essential hypertension; Chronic pain of both knees; Chronic neck pain 03/29/2025 Travel 03/24/[address] [address] Cassie Barnett DO Chart Prep 03/23/[address] [address] Cassie Barnett DO 03/22/2025 Travel 03/22/2025 Patient Outreach [address] [address] Cassie Barnett DO Care Coordination (CHW outreach for SDOH housing search-referral completed ) 03/22/2025 Patient Outreach [address] [address] Cassie Barnett DO Pre-visit Planning (SDOH screening negative and tobacco screening negative) 03/20/2025 Refill [facility] [address] [place] [address] Cassie Barnett DO 03/18/[address] [address] Cassie Barnett DO Other 03/18/2025 Travel 03/04/[address] [address] Cassie Barnett DO Nurse Triage 02/11/2025 Refill [facility] [address] [place] [address] Cassie Barnett DO 02/06/2025 Orders Only [facility] [address] [place] [address] Cassie Barnett, Fatty liver (Primary Dx); Chronic gastroesophageal reflux disease; Colon cancer screening 02/05/2025 Refill [facility] [address] [place] [address] Cassie Barnett, Other chronic pain 01/23/2025 Refill [facility] [address] [place] [address] Cassie Barnett, 01/21/2025 Refill [facility] [address] [place] [address] Cassie Barnett, 01/20/2025 Refill [facility] [address] [place] [address] Cassie Barnett, 01/19/2025 Refill [facility] [address] [place] [address] Eileen Jesus MD Seasonal allergic rhinitis due to other allergic trigger 01/19/2025 Refill [facility] [address] [place] [address] Cassie Barnett, Other hyperlipidemia; Seasonal allergic rhinitis due to other allergic trigger 01/17/2025 Refill [facility] [address] [place] [address] Cassie Barnett, from Last 3 Months Immunizations Immunization Administration Dates Next Due Hep A / Hep B 10/04/2011,04/30/2011,11/26/2010 Influenza injectable quadriv alent IIV4 with preservative 05/12/2018,05/27/2017,03/30/2015 Influenza injectable quadriv alent preservative free 04/24/2021,04/18/2020,03/18/2019,06/12 Influenza, IIV3, injectable 03/11/2014, 0 Influenza, Split (incl. ely fied surface antigen) 04/12/2013,04/09/2012 Influenza, seasonal, injecta ble, preservative free 05/22/2022 Pfizer Covid-19 Vaccine 12+ 12/16/2020, Pneumococcal Polysaccharide PPSV23 08/28/2015 TD (adult), 2 [...] 0.5 2 - 2011 Smokeless Tobacco: Former Tobacco Cessation:Counseling Given: [...] with others, in a hotel, in a residential, living outside on the street, on a [...] 2 - PCV) 08/27/2016 08/28/2015 COVID-19 Vaccine (3 - season) 2025 12/16/2020, 11/25/2020 Influenza Vaccine [...] Laterality Modality Lower Extremities, Knee Right [facility] 04/15/2025 9:35 AM EDT Narrative 04/15/2025 9:51 [place] [address] XRay Report Signed Patient: Marcela Lopez MR#: [id number] 2 : 1975 Acct:[id number] Age/Sex: 49 / F ADM Date: 04/15/25 Loc: .HHCX Attending Dr: Cassie Barnett DO Ordering Physician: Cassie Barnett DO Date of Service: 04/15/25 Procedure(s): XR knee RT 4V Accession Number(s): [id number] cc: Cassie Barnett DO Reason for Exam: [...] signed by Niko Xiao MD in OV> 04/15/25947 DD/ 4 TD/TT: 04/15/25935 Management Engineer: Procedure Note Daríokendallnasimdorothyter, Image - 04/15/[address] [address] XRay Report Signed Patient: Marcela LopezMR#: [id number] 2 : 1975Acct:[id number] Age/Sex: 49 / FADM Date: 04/15/25 Loc: HO.HHCX Attending Dr: Cassie Barnett DO Ordering Physician: Cassie Barnett DO Date of Service: 04/15/25 Procedure(s): XR knee RT 4V Accession Number(s): [id number] cc: Cassie Barnett DO Reason for Exam: [...] signed by Niko Xiao MD in OV> 04/15/25947 DD/ 4 TD/TT: 04/15/25935 Management Engineer: Cassie Barnett DO IMG XR PROCEDURES Final Resu lt * XR Knee 4+ Views Left (04/15/2025 9:33 AM EDT) Anatomical Region Laterality Modality Lower Extremities, Knee Left Radiogra phic Imaging 04/15/2025 9:33 AM EDT Narrative 04/15/2025 9:49 AM EDT [address] [address] XRay Report Signed Patient: Marcela Lopez MR#: [id number] 2 : 1975 Acct:[id number] Age/Sex: 49 / F ADM Date: 04/15/25 [facility]: [facility] Attending Dr: Cassie Barnett DO Ordering Physician: Cassie Barnett DO Date of Service: 04/15/25 Procedure(s): XR knee LT 4V Accession Number(s): [id number] cc: Cassie Barnett DO Reason for Exam: [...] signed by Niko Xiao MD in OV> 04/15/2546 DD/ 2 TD/TT: 04/15/25935 Management Engineer: Procedure Note Donfriedainterpreter, Image - 04/15/[address] [address] XRay Report Signed Patient: Marcela LopezMR#: [id number] 2 : 1975Acct:[id number] Age/Sex: 49 / FADM Date: 04/15/25 [facility]: [facility] Attending Dr: Cassie Barnett DO Ordering Physician: Cassie Barnett DO Date of Service: 04/15/25 Procedure(s): XR knee LT 4V Accession Number(s): [id number] cc: Cassie Barnett DO Reason for Exam: [...] in OV> 04/15/25945 DD/ 2 TD/TT: 04/15/25935 Management Engineer: Cassie Barnett DO IMG XR PROCEDURES Final Resu lt * (ABNORMAL) Lipid Panel, Standard (12/29/2024 8:59 AM EDT) Triglycerides 136 <150 mg/dL [facility] Comment:Desirable Triglyceri de: less than 150 mg/dLBorderline High Triglyceride 150-199 mg/dLHigh Triglyceride: 200-499 mg/dLVery High Triglyceride: greater than or equal to 5OO mg/dL Cholesterol 270(H) <200 mg/dL [facility] Comment:Desirable Cholestero l: less than 200 mg/dLBorderline High Cholesterol: 200-239 mg/dLHigh Cholesterol: greater than 239 mg/dL LDL Cholesterol Calculated 181(H) <100 mg/dL [facility] Comment:Desirable LDL: less than 100 mg/dLNear Optimal/Above Optimal LDL: 110- 129 mg/dLBorderline High LDL: 130-159 mg/dLHigh LDL: 160-189 mg/dLVery High LDL: greater than or equal to 190 mg/dL HDL Cholesterol 62 >40 mg/dL [facility] Comment:Desirable HDL: great er than 40 mg/dL Note: This HDL assay may give artificially low results in patients with liver disease. 12/29/2024 8:59 AM EDT 12/29/2024 8:59 AM EDT us Generic External Data Provider LAB BLOOD ORDERAB LES Final Result [facility] [address] [place] [address] [phone] * BI Mammogram Screening Tomosynthesis Bilateral (01/09/2024 9:28 AM EDT) Anatomical Region Laterality Modality Breast Bilateral Mammography 01/09/2024 9:28 AM EDT Narrative 01/19/2024 11:18 PM EDT [address] [place] [address] Mammography Report Signed Patient: Marcela Lopez MR#: [id number] 2 : 1975 Acct:[id number] Age/Sex: 48 / F ADM Date: 01/09/24 Loc: HO.MAMMO Attending Dr: Cassie Barnett DO Ordering Physician: Cassie Barnett DO Results: 2B enign Findings Date of Service: 01/09/24 Follow Up: 1 Year From [facility] Mammogram Procedure(s): MM tomosynthesis screening BI Accession Number(s): [id number] cc: Cassie Barnett DO EXAMINATION: MM SCREENING [...] signed by Zoey Knowles MD in OV> 01/19/24 2314 DD/ 7 TD/TT: Management Engineer: Procedure Note Donotuseinterpreter, Image - 01/19/2024 [facility] [address] [place], [place] [address] Mammography Report Signed Patient: Marcela LopezMR#: [id number] 2 : 1975Acct:[id number] Age/Sex: 48 / FADM Date: 01/09/24 Loc: [facility] Attending Dr: Cassie Barnett DO Ordering Physician: Cassie Barnettults: 2B enign Findings Date of Service: 01/09/24Follow Up: 1 Year From Orig inal Mammogram Procedure(s): MM tomosynthesis screening BI Accession Number(s): [id number] cc: Cassie Barnett DO EXAMINATION: MM SCREENING [...] signed by Zoey Knowles MD in OV> 01/19/24 8155 DD/ 7 TD/TT: Management Engineer: Cassie Ericka DO IMG BI PROCEDURES Final Resu lt * HEPATITIS C AB W/REFL TO HCV RNA, QN, PCR (09/10/2021 8:44 AM EDT) HEPATITIS C ANTIBODY NON-REACT NINA NON-REACT NINA [facility] INDEX 0.01 <1.00 [facility] Comment: HCV antibody was non-reactive. There is no laboratory evidence of HCV infection. In most cases, no further action is required. However, if recent HCV exposure is suspected, a test for HCV RNA (test code 92172) is suggested. For additional information please refer to http://education.[employer]/faq/KIQ55n2 (This link is being provided for informational/ educational purposes only.) 09/10/2021 8:44 AM EDT Cassie Ericka LOPEZ HISTORICAL/NON ORDERABLE LAB S Final Result [facility] [address] * HIV 1/2 ANTIGEN/ANTIBODY,FOURTH GENERATION W/RFL (09/10/2021 8:44 AM EDT) HIV-1/2 ANTIGEN AND ANTIBODIES, 4TH GENERATION W/ REFLEX NON-REACT NINA NON-REACT NINA [facility] Comment: HIV-1 antigen and HIV-1/HIV-2 [...] purpose. For additional information please refer to http://education.[employer]/faq/DXZ153 (This link is being provided for informational/ educational purposes only.) The performance of this assay has not been clinically validated in patients less than 2 years old. 09/10/2021 8:44 AM EDT Cassie Barnett DO LAB BLOOD ORDERABLES Final R esult [facility] [address] * Pap Smear (06/12/2020) Pap Negative for intraephithelial lesion or malignancy Negative for intraephithelial lesion or malignancy, Other HPV Undetected Undetected, Indeterminate, Quantitative, Not Detected Historical Provider HEALTH MAINTENANCE Final Result from Last 3 Months or Most Recently Relevant to Health Maintenance Insurance C3 Care Teams Aluminum Boat Inspector Relationship Specialty Start Date End Date Cassie Barnett DO [address] [place] [address] PCP - General Family Medicine 12/29/18 Frederick Heaton FNP [address] [place] [address] Nurse Practitioner Family Medicine 05/20/23
--- OUTSIDE RECORDS SUMMARY | 2025-04-19 10:55 | XMS_ITS | Encounter Summary ---
Author Organization [employer] Address [address] [facility] [address]t [place] [address] Care Team Providers Care Aerospace Engineer Name Role Phone Cassie Barnett DO Primary Care Provider + [phone] Frederick Heaton Unavailable Unavailable Encounter Details Date Type Department Care Team (Late st Contact Info) Description 01/05/2024 Orders Only [facility] [address] [place], [place] [phone] Eileen Jesus MD [address] [place] [address] Social History Tobacco Use Types Packs/Day Years [...] with others, in a hotel, in a assisted, living outside on the street, on a [...] documented as of this encounter Care Teams Aerospace Engineer Relationship Specialty Start Date End Date Cassie Barnett DO [address] [place] [address] PCP - General Family Medicine 12/29/18 Frederick Heaton FNP [address] [place] [address] Nurse Practitioner Family Medicine 05/20/23 documented as of this encounter
--- OUTSIDE RECORDS SUMMARY | 2025-04-19 10:55 | XMS_ITS | Encounter Summary ---
Author Organization [employer] Address [address] [facility] 7 [place] [address] Care Team Providers Care Medical Videographer Name Role Phone Cassie Barnett DO Primary Care Provider +1 [phone] Frederick Heaton Unavailable Unavailable Encounter Details Date Type Department Care Team (Late st Contact Info) Description 08/12/2022 Abstract [facility] [address] [place] [address] Cassie Barnett DO [address] [place] [address] Social History Tobacco Use Types Packs/Day Years [...] documented as of this encounter Care Teams Medical Videographer Relationship Specialty Start Date End Date Cassie Barnett DO [address] [place] [address] PCP - General Family Medicine 12/29/18 Frederick Heaton FNP [address] [place] [address] Nurse Practitioner Family Medicine 05/20/23 documented as of this encounter
--- OUTSIDE RECORDS SUMMARY | 2025-04-19 10:58 | XMS_ITS | Encounter Summary ---
Author Organization [employer] Address [address] [facility] 7t [place] [address] Care Team Providers Care Car Hopper Name Role Phone Cassie Barnett DO Primary Care Provider + [phone] Frederick Heaton Unavailable Unavailable Reason for Visit * Reason Comments Med Refill Encounter Details Date Type Department Care Team ([facility] st Contact Info) Description 03/20/2025 Refill [facility] [address] [place] [address] Cassie Barnett DO [address] [place] [address] Social History Tobacco Use Types Packs/Day Years [...] documented as of this encounter Care Teams Car Hopper Relationship Specialty Start Date End Date Cassie Barnett DO [address] [place] [address] PCP - General Family Medicine 12/29/18 Frederick Heaton FNP [address] [place] [address] Nurse Practitioner Family Medicine 05/20/23 documented as of this encounter
--- OUTSIDE RECORDS SUMMARY | 2025-04-19 10:58 | XMS_ITS | Encounter Summary ---
Author Organization [employer] Address [address] [facility] [address]t [place] [address] Care Team Providers Care Dynamic Balancer Set Up Worker Name Role Phone Cassie Barnett DO Primary Care Provider + [phone] Frederick Heaton Unavailable Unavailable Reason for Visit * Reason Onset Date Comments Med Refill 06/18/2022 Encounter Details Date Type Department Care Team ([facility] st Contact Info) Description 06/18/2022 Telephone [facility] [address] [place], [place] [phone] Cassie Barnett DO [address] [place] [address] Med Refill Social History Tobacco Use Types [...] documented as of this encounter Care Teams Dynamic Balancer Set Up Worker Relationship Specialty Start Date End Date Cassie Barnett DO [address] [place] [address] PCP - General Family Medicine 12/29/18 Frederick Heaton FNP [address] [place] [address] Nurse Practitioner Family Medicine 05/20/23 documented as of this encounter
--- OUTSIDE RECORDS SUMMARY | 2025-04-19 10:58 | XMS_ITS | Encounter Summary ---
Author Organization [employer] Address [address] [facility] 7 [place] [address] Care Team Providers Care Afterschool Name Role Phone Cassie Barnett DO Primary Care Provider + [phone] Frederick Heaton Unavailable Unavailable Reason for Visit * Reason Onset Date Comments Nurse Triage 12/16/2023 Encounter Details Date Type Department Care Team ([facility] st Contact Info) Description 12/16/2023 Telephone [facility]INE [address] [place], [place] [phone] Cassie Barnett DO [address] [place] [address] Nurse Triage Social History Tobacco Use Types [...] with others, in a hotel, in a [place] [facility], living outside on the street, on a [...] 12/16/2023 4:36 PM EDT Called pt. Via dolph industrial engineer [phone] [place]. Pt. States that she has a [...] cough x3 days. Pt will come into [facility] walk in tomorrow 12/17/23 at 830am for assessment and care. Protocol Used: Cough (Adult) Protocol-Based Disposition: See in Office or Video Visit Today or Tomorrow- Pt. Will come into [facility] walk in when it opens tomorrow 12/17/23. [...] provider within 15 minutes Reason: Trouble walking Romansh Speaker (Accepted Commercial Driver) Pt 1/2 documented in this encounter Plan of Treatment Not on file documented as of this encounter Visit Diagnoses Diagnosis Seasonal allergic rhinitis due to other allergic trigger documented in this encounter Additional Health Concerns Assessment Noted Time PHQ-9 Depression Total Score: 8 04/07/20 2:43 PM EDT documented as of this encounter Care Teams Afterschool Relationship Specialty Start Date End Date Cassie Barnett DO [address] [place] [address] PCP - General Family Medicine 12/29/18 Frederick Heaton FNP [address] [place] [address] Nurse Practitioner Family Medicine 05/20/23 documented as of this encounter
--- OUTSIDE RECORDS SUMMARY | 2025-04-19 10:58 | XMS_ITS | Encounter Summary ---
Author Organization [employer] Address [address] [facility] 7t [place] [address] Care Team Providers Care Medical Lab Technologist Name Role Phone Cassie Barnett DO Primary Care Provider + [phone] Frederick Heaton Unavailable Unavailable Reason for Visit * Reason Comments Med Refill Encounter Details Date Type Department Care Team (Late st Contact Info) Description 12/10/2023 Refill [facility] MEDICINE [address] [place] [address] Frederick Heaton FNP Social History Tobacco Use [...] with others, in a hotel, in a half-way, living outside on the street, on a [...] as of this encounter Care Teams Medical Lab Technologist Relationship Specialty Start Date End Date Cassie Barnett DO [address] [place] [address] PCP - General Family Medicine 12/29/18 Frederick Heaton FNP [address] [place] [address] Nurse Practitioner Family Medicine 05/20/23 documented as of this encounter
[2025-04-19 12:14] LABS: Microalbum/Creatinine Ratio Ur 4.6 ug/mg cr (<30)
[2025-04-19 12:23] LABS: Hematocrit 45.4 % (37.0-47.0); Hemoglobin 14.9 g/dl (12.0-16.0); Mean Corpuscular HGB Conc 32.8 g/dl (31.0-35.0); Mean Corpuscular Hemoglobin 29.3 pg (27.0-33.0); Mean Corpuscular Volume 89.4 fL (80.0-98.0); NRBC Abs Auto 0.000 X10*3/uL (0.0-0.012); NRBC Pct Auto 0.0 /100WBC (0.0-0.2); Platelet Count 321 X10*3/uL (160-400); Red Blood Count 5.08 X10*6/uL (4.20-5.50); White Blood Count 4.5 X10*3/uL (4.8-10.8)
[2025-04-19 12:51] LABS: Hemoglobin A1C 141.8419 umol/L
[2025-04-19 12:53] LABS: Alanine Aminotransferase 25 U/L (0-31); Albumin Level 4.4 g/dL (3.5-5.0); Alkaline Phosphatase 52 U/L (39-117); Anion Gap 9 (12-20); Aspartate Amino Transferase 22 U/L (5-31); Blood Urea Nitrogen 12 mg/dL (9-16); Calcium 9.1 mg/dL (8.4-10.2); Carbon Dioxide 25 mmol/L (22-29); Chloride 109 mmol/L (96-108); Cholesterol 146 mg/dL (<200); Estimated Glomerular Filt Rate > 60; HDL Cholesterol 50 mg/dL (>40); Potassium 4.2 mmol/L (3.3-5.1); Sodium 139 mmol/L (135-145); Total Protein 7.7 g/dL (6.5-8.0); Triglycerides 171 mg/dL (<150)
[2025-04-19 12:56] LABS: HIV Num 1 0.05 S/CO (0.00-0.99); Thyroid Stimulating Hormone 0.88 uIU/mL (0.32-4.0); ~HepC Num1 0.08 S/CO (0.00-0.79); ~Hepatitis C Antibody Nonreactive (Nonreactive)
[2025-04-19 13:04] LABS: Free T4 (Free Thyroxine) 0.91 ng/dL (0.71-1.85)
== END 2025-04-19 09:42 | disposition home or self-care (01) ==
LOC: HO.HHCL 09:41
PROVIDERS: Nurse Practitioner Family; PCP Family Medicine; Visit Provider Family Medicine
DX: Z11.4 Encounter for screening for human immunodeficiency virus [HIV] (principal); Z11.59 Encounter for screening for other viral diseases; Z11.3 Encounter for screening for infections with a predominantly sexual mode of transmission; I10 Essential (primary) hypertension; I25.10 Atherosclerotic heart disease of native coronary artery without angina pectoris; K76.0 Fatty (change of) liver, not elsewhere classified; E78.49 Other hyperlipidemia
CPT/HCPCS: 36415; 80048; 80061; 80076; 82043; 82105; 82306; 82570; 83036; 84439; 84443; 85027; 86592; 86803; 87389

== ENCOUNTER 2025-05-31 12:39 | Outpatient (AMB) | payer MEDICAID, SELFPAY ==
--- NOTE | 2025-05-31 12:44 | MHC.OFFVIS ---
Vital Signs 05/31/25 12:59 Height 5 ft 5 in Weight 199 lb BMI 33.1 BP 137/88 Blood Pressure Location Lt brachial Position Sitting Pulse 99 Intake Visit Reasons: abscess (R) breast Intake Note: Patient is seen in office for evaluation of an abscess of the right breast. Pt c/o: feels a lump in the right breast for a year, denies increase/decrease, pain, discharge, has prior hx of rt breast bx (benign), fm hx of breast cancer maternal and paternal grandmother, and few cousin mm sched: 06/02/25 @ 12:15 pm Family Coach Required: Yes Family Coach Services: Family Coach Present Family Coach Name: Val COX Information Interpreted: non-clinical & clinical Cnc Machine Programmer: Cnc Machine Programmer Present Accompanied by: Self / Same As Patient Allergies No Known Allergies Allergy (Verified 05/31/25 12:57) Medication List - Last Reconciled 05/31/25 by Oh Marinelli MD acetaminophen 325 mg PO QID PRN albuterol sulfate 90 mcg/actuation (ProAir HFA) 2 puffs inhalation 6XD alirocumab (Praluent Pen) 75 mg subcut Q2W [Anti-pronation orthotics Anti-pronation orthotics] ergocalciferol (vitamin D2) 1,250 mcg PO QWEEK fluticasone propionate 110 mcg/actuation (Flovent HFA) 1 puff inhalation BID montelukast (Singulair) 10 mg PO DAILY rosuvastatin 40 mg PO BEDTIME sumatriptan succinate (Imitrex) take 1 tab at onset of headache; if no relief may repeat 1 tab after at least 2 hrs; max = 2 tabs/24 hr PO zolpidem 10 mg PO BEDTIME PRN HPI Comments Details: 49-year-old female patient presenting for evaluation of a right breast lesion located in the upper outer quadrant. This has been present for approximately 1-1/2 years and described as red without any drainage or bleeding. She denies any surgical procedures in this location. She did have a previous breast biopsy performed in 2012 which was non cancers. She does have a history of fibromyalgia which causes breast pain. Her family history is significant for several maternal and paternal cousins with breast cancer as well as her maternal and paternal grandmother with breast cancer. One of her grandmothers from the breast cancer. She has no known family history of ovarian cancer. Her menarche was at 13. She is 5 para 4, and her 1st child was born when she was 17 years old. Her last mammogram was performed on 01/09/2024 and revealed no mammographic evidence of malignancy (BI-RADS 2). [facility] OF [facility] Medical History Pes planus of both feet Hyperlipidemia CAD (coronary artery disease) Fibromyalgia Surgical History S/P tubal ligation Hx of cardiac cath (04/15/18) Hx of section History of carpal tunnel surgery Hx of removal of cyst History of esophagogastroduodenoscopy (EGD) (11/22/14) History of surgery on wrist Family History Maternal Grandmother History of breast cancer Maternal Grandfather History of liver cancer Father CVD (cardiovascular disease) Mother HTN (hypertension) Diabetes Rheumatoid arthritis Fibromyalgia Social History Household Members: None Housing: Apartment Alcohol intake: current Alcohol intake frequency: does not drink Substance Use Type: Marijuana Review of Systems Const All systems reviewed & are unremarkable except as noted in HPI and below Physical Exam Vital Signs: Last Vital Signs Pulse 99 05/31/25 12:59 BP 137/88 05/31/25 12:59 BMI result Body Mass Index 33.1 Const General: cooperative and no acute distress Nutritional Appearance: well nourished Orientation/consciousness: patient oriented x3 Limitations: no limitations HEENT Head: Yes normocephalic and Yes atraumatic Ears: hearing grossly normal bilaterally Chest Other: Left breast: No skin change, no nipple retraction, no nipple discharge, no palpable mass, no enlarged lymph nodes. Right breast: 2 punctate skin lesions noted in the upper outer quadrant with a slight rim of redness suggestive of a folliculitis (see below), no nipple retraction, no nipple discharge, no palpable mass, no enlarged lymph nodes Chest/axillae images:  1. 0.5 cm folliculitis 2. 0.5 cm folliculitis Resp Effort & Inspection: normal respiratory effort, no audible wheezes, no cough and no respiratory distress Cardio Jugular venous distension: no JVD GI Inspection: Yes normal to inspection and Yes Abdominal panniculus present Skin Other: Warm, dry, no rash Neuro General: patient oriented x3 Extrem General: Yes no clubbing, cyanosis or edema Assessment & Plan Assessment & Plan (1) Family history of breast cancer: Code(s): Z80.3 - Family history of malignant neoplasm of breast Category: Medical (2) Infection of right breast: Code(s): N61.0 - Mastitis without abscess Category: Medical Plan 49-year-old female patient presenting with a strong family history of breast cancer presenting with 2 areas of apparent folliculitis in the right breast located in the upper outer quadrant. These are persisted for the past year and a half. Patient is obviously nervous about this given her family history of breast cancer. She is scheduled for a mammogram tomorrow at the [facility]. I also discussed genetic testing given her strong family history of breast cancer. After discussion of the procedure and potential results, she wishes to proceed with this testing. She will return in approximately 6 weeks following the testing to re-examined the breast and review the testing results. Coding Level of Care Code New Pt Level 4 (38546) Diagnoses Family history of breast cancer Z80.3 Infection of right breast N61.0
[2025-05-31 12:59] VITALS: BP 137/88; PULSE 99; BMI 33.1
--- OUTSIDE RECORDS SUMMARY | 2025-05-31 16:25 | XMS_ITS | Encounter Summary ---
Author Organization [employer] Address [address] [facility] 7t [place] [address] Care Team Providers Care Security Installer Name Role Phone Cassie Barnett DO Primary Care Provider + [phone] Frederick Heaton Unavailable Unavailable Reason for Visit * Reason Onset Date Comments Med Refill 06/18/2022 Encounter Details Date Type Department Care Team ([facility] st Contact Info) Description 06/18/[address] [facility] MEDICINE [address] [place], [place] [phone] Cassie Barnett DO [address] [place] [address] Med Refill Social History Tobacco Use Types [...] documented as of this encounter Care Teams Security Installer Relationship Specialty Start Date End Date Cassie Barnett DO [address] [place] [address] PCP - General Family Medicine 12/29/18 Frederick Heaton FNP [address] [place] [address] Nurse Practitioner Family Medicine 05/20/23 documented as of this encounter
--- OUTSIDE RECORDS SUMMARY | 2025-05-31 16:25 | XMS_ITS | Encounter Summary ---
Author Organization [employer] Address [address] [facility] 7 [place] [address] Care Team Providers Care Community Director Name Role Phone Cassie Barnett DO Primary Care Provider + [phone] Frederick Heaton Unavailable Unavailable Reason for Visit * Reason Comments Med Refill Encounter Details Date Type Department Care Team (Late st Contact Info) Description 05/26/2025 Refill [facility] MEDICINE [address] [place], [place] [phone] Cassie Barnett DO [address] [place] [address] Other chronic pain Social History Tobacco Use Types Packs/Day Years [...] as of this encounter Visit Diagnoses Diagnosis Other chronic pain documented in this encounter Additional Health Concerns Assessment Noted Time PHQ-9 Depression Total Score: 10 025 1:34 PM EDT documented as of this encounter Care Teams Community Director Relationship Specialty Start Date End Date Cassie Barnett DO [address] [place] [address] PCP - General Family Medicine 12/29/18 Frederick Heaton FNP [address] [place] [address] Nurse Practitioner Family Medicine 05/20/23 documented as of this encounter
--- OUTSIDE RECORDS SUMMARY | 2025-05-31 16:25 | XMS_ITS | Encounter Summary ---
Author Organization [employer] Address [address] [facility] 7t [place] [address] Care Team Providers Care Corporate Risk Analyst Name Role Phone Cassie Barnett DO Primary Care Provider + [phone] Frederick Heaton Unavailable Unavailable Reason for Visit * Reason Comments Med Refill Encounter Details Date Type Department Care Team (Late st Contact Info) Description 12/16/2024 Refill [facility] CH[facility] MED & PEDS [address] [place] [address] Cassie Barnett DO [address] [place] [address] Social History Tobacco Use Types Packs/Day Years [...] with others, in a hotel, in a long-term, living outside on the street, on a [...] documented as of this encounter Care Teams Corporate Risk Analyst Relationship Specialty Start Date End Date Cassie Barnett DO [address] [place] [address] PCP - General Family Medicine 12/29/18 Frederick Heaton FNP [address] [place] [address] Nurse Practitioner Family Medicine 05/20/23 documented as of this encounter
--- OUTSIDE RECORDS SUMMARY | 2025-05-31 16:25 | XMS_ITS | Encounter Summary ---
Author Organization [employer] Address [address] [facility] 7 [place] [address] Care Team Providers Care Director Of Research Name Role Phone Cassie Barnett DO Primary Care Provider + [phone] Frederick Heaton Unavailable Unavailable Reason for Visit * Reason Comments Med Refill Encounter Details Date Type Department Care Team (Late st Contact Info) Description 01/04/2023 Refill [facility] MEDICINE [address] [place], [place] [phone] Cassie Barnett DO [address] [place], [place] [phone] Hyperlipidemia, unspecified hyperlipidemia type; Hypertension, unspecified type [...] as of this encounter Care Teams Director Of Research Relationship Specialty Start Date End Date Cassie Barnett DO [address] [place] [address] PCP - General Family Medicine 12/29/18 Frederick Heaton FNP [address] [place] [address] Nurse Practitioner Family Medicine 05/20/23 documented as of this encounter
--- OUTSIDE RECORDS SUMMARY | 2025-05-31 16:25 | XMS_ITS | Encounter Summary ---
Author Organization [employer] Address [address] [facility] 7 [place] [address] Care Team Providers Care Molder Closed Molds Name Role Phone Cassie Barnett DO Primary Care Provider + [phone] Frederick Heaton Unavailable Unavailable Reason for Visit * Reason Onset Date Comments Nurse Triage 05/27/2025 Encounter Details Date Type Department Care Team ([facility] st Contact Info) Description 05/27/2025 Telephone [facility] MEDICINE [address] [place], [place] [phone] Cassie Barnett DO [address] [place] [address] Nurse Triage Social History Tobacco Use Types Packs/Day Years Used Date Smoking Tobacco: Former Cigarettes 0.5 - 2011 Smokeless Tobacco: Former Alcohol Use [...] with others, in a hotel, in a group home, living outside on the street, on [...] encounter Miscellaneous Notes * Telephone Encounter - Rosaline Rivas RN - 05/27/2025 9:57 AM EST TC returned to pt. Pt. Reports R sided upper back pain that started yesterday out of nowhere , hada hard time sleeping due to the pain. Has been constant since yesterday. Worse with deep inspiration. Pt. Has taken baclofen, gabapentin and APAP this morning, then took a hot shower so pt. Reports pain improved from 20/10 to 10/10. Pt. Is unsure if she has radiating pain or numbness/ tingling in the arm as she had arthritis, carpal tunnel and fibromyalgia and is hard to differentiate the symptoms but does have pain and numbness/ tinging in R arm. Informed pt. Based on symptoms, recommendation is to be seen in office today. Pt. Agrees to plan, will come to walk in clinic as soon as she can get a family member to give her a ride. Aware of possible wait time when she gets here based on how many patients have also walked in to be seen. Protocol Used: Back Pain (Adult) Protocol-Based Disposition: See in Office or Video Visit Today Video visit offer not recorded Positive Triage Questions: * Severe back pain (e.g., excruciating, unable to do any normal activities) and not improved after pain medicine and Care Advice * Numbness in an arm or hand (i.e., loss of sensation) and upper back pain * All higher-acuity triage questions were negative. * Telephone Encounter - Jamalmirna Vladimir - 05/27/2025 8:55 AM EST Symptom: Back Pain - Not From Injury Outcome: Schedule an appointment to be seen within 3 days Reason: Caller denied all higher acuity questions Tc from pt stating back pian onside her right side Please contact at [phone] Citizen Of [place] speak documented in this encounter Plan of Treatment Not on file documented as of this encounter Visit Diagnoses Not on filedocumented in this encounter Additional Health Concerns Assessment Noted Time PHQ-9 Depression Total Score: 10 025 1:34 PM EDT documented as of this encounter Care Teams Molder Closed Molds Relationship Specialty Start Date End Date Cassie Barnett DO [address] [place] [address] PCP - General Family Medicine 12/29/18 Frederick Heaton FNP [address] [place] [address] Nurse Practitioner Family Medicine 05/20/23 documented as of this encounter
--- OUTSIDE RECORDS SUMMARY | 2025-05-31 16:25 | XMS_ITS | Encounter Summary ---
Author Organization [employer] Address [address] [facility] 7 [place] [address] Care Team Providers Care Materials Management Manager Name Role Phone Cassie Barnett DO Primary Care Provider +[phone] Frederick Heaton Unavailable Unavailable Encounter Details Date Type Department Care Team (Late st Contact Info) Description 08/12/2022 Abstract [facility] MEDICINE [address] [place] [address] Cassie Barnett DO [address] [place] [address] Social History Tobacco Use Types Packs/Day Years [...] documented as of this encounter Care Teams Materials Management Manager Relationship Specialty Start Date End Date Cassie Barnett DO [address] [place] [address] PCP - General Family Medicine 12/29/18 Frederick Heaton FNP [address] [place] [address] Nurse Practitioner Family Medicine 05/20/23 documented as of this encounter
--- OUTSIDE RECORDS SUMMARY | 2025-05-31 16:25 | XMS_ITS | Encounter Summary ---
Author Organization [employer] Address [address] [facility] [address] [place] [address] Care Team Providers Care Corporate Receptionist Name Role Phone Cassie Barnett DO Primary Care Provider + [phone] Frederick Heaton Unavailable Unavailable Reason for Visit * Reason Comments Med Refill Encounter Details Date Type Department Care Team (Late st Contact Info) Description 09/02/2022 Refill [facility] MEDICINE [address] [place], [place] [phone] Eileen Jesus MD [address] [place], [place] [phone] Social History Tobacco Use Types Packs/Day Years [...] as of this encounter Care Teams Corporate Receptionist Relationship Specialty Start Date End Date Cassie Barnett DO [address] [place], [place] [phone] PCP - General Family Medicine 12/29/18 Frederick Heaton FNP [address] [place] [address] Nurse Practitioner Family Medicine 05/20/23 documented as of this encounter
--- OUTSIDE RECORDS SUMMARY | 2025-05-31 16:25 | XMS_ITS | Encounter Summary ---
Author Organization [employer] Address [address] [facility] 7 [place] [address] Care Team Providers Care Laserist Name Role Phone Cassie Barnett DO Primary Care Provider + [phone] Frederick Heaton Unavailable Unavailable Reason for Visit * Reason Onset Date Comments Nurse Triage 12/16/2023 Encounter Details Date Type Department Care Team ([facility] st Contact Info) Description 12/16/2023 Telephone [facility] MEDICINE 230 [place], [place] [phone] Cassie Barnett DO [address] [place] [address] Nurse Triage Social History Tobacco Use Types [...] 12/16/2023 4:36 PM EDT Called pt. [facility] guest specialist [phone] [place]. Pt. States that she has a [...] cough x3 days. Pt will come into [facility] walk in tomorrow 12/17/23 at 830am for assessment and care. Protocol Used: Cough (Adult) Protocol-Based Disposition: See in Office or Video Visit Today or Tomorrow- Pt. Will come into [facility] walk in when it opens tomorrow [...] provider within 15 minutes Reason: Trouble walking Samoan Speaker (Accepted Pharmacy Graduate Intern) Pt 1/2 documented in this encounter Plan of Treatment Not on file documented as of this encounter Visit Diagnoses Diagnosis Seasonal allergic rhinitis due to other allergic trigger documented in this encounter Additional Health Concerns Assessment Noted Time PHQ-9 Depression Total Score: 8 04/07/20 2:43 PM EDT documented as of this encounter Care Teams Laserist Relationship Specialty Start Date End Date Cassie Barnett DO [address] [place] [address] PCP - General Family Medicine 12/29/18 Frederick Heaton FNP [address] [place] [address] Nurse Practitioner Family Medicine 05/20/23 documented as of this encounter
--- OUTSIDE RECORDS SUMMARY | 2025-05-31 16:25 | XMS_ITS | Encounter Summary ---
Author Organization [employer] Address [address] [facility] 7t [place] [address] Care Team Providers Care Sanitation Officer Name Role Phone Cassie Barnett DO Primary Care Provider + [phone] Frederick Heaton Unavailable Unavailable Reason for Visit * Reason Comments Med Refill Encounter Details Date Type Department Care Team ([facility] st Contact Info) Description 03/20/2025 Refill [facility] CHC MED & PEDS [address] [place] [address] Cassie Barnett DO [address] [place] [address] Social History Tobacco Use Types Packs/Day Years [...] others, in a hotel, in a senior living, living outside on the street, on a [...] documented as of this encounter Care Teams Sanitation Officer Relationship Specialty Start Date End Date Cassie Barnett DO [address] [place] [address] PCP - General Family Medicine 12/29/18 Frederick Heaton FNP [address] [place] [address] Nurse Practitioner Family Medicine 05/20/23 documented as of this encounter
--- OUTSIDE RECORDS SUMMARY | 2025-05-31 16:25 | XMS_ITS | Encounter Summary ---
Author Organization [employer] Address [address] [facility] 7t [place] [address] Care Team Providers Care In Flight Refueling Craftsman Name Role Phone Cassie Barnett DO Primary Care Provider + [phone] Frederick Heaton Unavailable Unavailable Encounter Details Date Type Department Care Team (Late st Contact Info) Description 01/05/[address] [facility] MEDICINE [address] [place], [place] [phone] Eileen Jesus MD [address] [place] [address] Social History Tobacco Use Types Packs/Day Years [...] documented as of this encounter Care Teams In Flight Refueling Craftsman Relationship Specialty Start Date End Date Cassie Barnett DO [address] [place] [address] PCP - General Family Medicine 12/29/18 Frederick Heaton FNP [address] [place] [address] Nurse Practitioner Family Medicine 05/20/23 documented as of this encounter
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
--- OUTSIDE RECORDS SUMMARY | 2025-05-31 16:25 | XMS_ITS | Encounter Summary ---
Author Organization [employer] Address [address] [facility] [address]t [place] [address] Care Team Providers Care Computer Help Desk Representative Name Role Phone Cassie Barnett DO Primary Care Provider + [phone] Frederick Heaton Unavailable Unavailable Reason for Visit * Reason Comments Med Refill Encounter Details Date Type Department Care Team (Late st Contact Info) Description 12/02/2024 Refill [facility] CHC MED & PEDS [address] [place] [address] Cassie Barnett DO [address] [place] [address] Social History Tobacco Use Types Packs/Day Years [...] with others, in a hotel, in a detention, living outside on the street, on a [...] documented as of this encounter Care Teams Computer Help Desk Representative Relationship Specialty Start Date End Date Cassie Barnett DO [address] [place] [address] PCP - General Family Medicine 12/29/18 Frederick Heaton FNP [address] [place] [address] Nurse Practitioner Family Medicine 05/20/23 documented as of this encounter
--- OUTSIDE RECORDS SUMMARY | 2025-05-31 16:25 | XMS_ITS | Encounter Summary ---
Author Organization [employer] Address [address] [facility] [address]t [place] [address] Care Team Providers Care Leaflet Distributor Name Role Phone Cassie Barnett DO Primary Care Provider + [phone] Frederick Heaton Unavailable Unavailable Reason for Visit * Reason Comments Med Refill Encounter Details Date Type Department Care Team (Late st Contact Info) Description 12/10/2023 Refill [facility] MEDICINE [address] [place] [address] Frederick Heaton FNP Social History Tobacco Use [...] documented as of this encounter Care Teams Leaflet Distributor Relationship Specialty Start Date End Date Cassie Barnett DO [address] [place] [address] PCP - General Family Medicine 12/29/18 Frederick Heaton FNP [address] [place] [address] Nurse Practitioner Family Medicine 05/20/23 documented as of this encounter
--- OUTSIDE RECORDS SUMMARY | 2025-05-31 16:25 | XMS_ITS | Encounter Summary ---
Author Organization [employer] Address [address] [facility] [address]t [place] [address] Care Team Providers Care Air Liaison And Special Staff Name Role Phone Cassie Barnett DO Primary Care Provider + [phone] Frederick Heaton Unavailable Unavailable Reason for Visit * Reason Comments Med Refill Encounter Details Date Type Department Care Team (Late st Contact Info) Description 01/23/2025 Refill [facility] CHC MED & PEDS [address] [place] [address] Cassie Barnett DO [address] [place] [address] Social History Tobacco Use Types Packs/Day Years [...] with others, in a hotel, in a snf, living outside on the street, on a [...] documented as of this encounter Care Teams Air Liaison And Special Staff Relationship Specialty Start Date End Date Cassie Barnett DO [address] [place] [address] PCP - General Family Medicine 12/29/18 Frederick Heaton FNP [address] [place] [address] Nurse Practitioner Family Medicine 05/20/23 documented as of this encounter
--- OUTSIDE RECORDS SUMMARY | 2025-05-31 16:25 | XMS_ITS | Clinical Summary ---
Author Organization [employer] Address [address] [facility] [address] [place] [address] Care Team Providers Care Awning Maker Name Role Phone Cassie Barnett DO Primary Care Provider + [phone] Frederick Heaton Unavailable Unavailable Allergies No known [...] 2 sprays each nostril bid prn rhinorrhea, greek 15 mL 024 Active aspirin (Aspirin Low Dose) 81 MG EC tabletIndications :Hyperlipidemia, unspecified hyperlipidemia type Take 1 tablet (81 mg) by mouth at bedtime. 90 tablet 024 Active lisinopril 20 MG tabletIndications :Hypertension, unspecified type Take 0.5 tablets (10 mg) by mouth Once per day. 90 tablet Active Blood Pressure Monitoring [facility] Cuff) [facility] Use daily as prescribed 1 each Active [...] by mouth 2 times daily. 360 tablet 3 Active perphenazine 8 MG tablet Take 1 tablet (8 mg) by mouth 2 times daily. 180 tablet 3 Active cholecalciferol (Vitamin D-3) 50 MCG (2000 UT) capsule Take 1 capsule (50 mcg) by mouth Once per day. 90 capsule 3 024 Active fluticasone furoate (Arnuity Ellipta) 100 MCG/ACT [...] BEDTIME NEEDED FOR SLEEP 30 tablet 3 5 1:12 PM EST 025 Active montelukast (Singulair) 10 MG tabletIndications :Seasonal allergic rhinitis due to other allergic trigger TAKE 1 TABLET BY MOUTH EVERY EVENING 90 tablet 3 5 9:26 AM EST 025 Active amitriptyline (Elavil) 25 MG tablet Take 1 tablet (25 mg) by mouth at bedtime. 90 tablet 3 025 Active SUMAtriptan (Imitrex) 25 MG tablet TAKE 1 TABLET BY MOUTH AT ONSET OF MIGRAINE. MAY REPEAT AFTER 2 HOURS IF NEEDED. DO NOT EXCEED 2 TABLETS / 24 HOURS 9 tablet 3 025 Active baclofen (Lioresal) 10 MG tablet TAKE 1 TABLET BY MOUTH THREE TIMES DAILY IN THE MORNING, AT NOON, AND AT BEDTIME NEEDED FOR MUSCLE SPASMS 60 tablet 3 5 9:26 AM EST 025 Active rosuvastatin (Crestor) 40 MG tabletIndications :Other hyperlipidemia Take 1 tablet (40 mg) by mouth at bedtime. 90 tablet 3 025 Active acetaminophen (Tylenol 8 Hour) 650 MG ER tablet Take 1 tablet (650 mg) by mouth every 8 (eight) hours if needed for mild pain. 60 tablet 3 5 9:26 AM EST 025 2025 Active albuterol (Ventolin HFA) 108 (90 Base) MCG/ACT inhalerIndication s:Asthma,Bronchos pasm INHALE 2 PUFFS BY MOUTH EVERY 4 TO 6 HOURS NEEDED FOR SHORTNESS OF BREATH OR WHEEZING 18 g 1 5 9:26 AM EST 025 Active gabapentin (Neurontin) 300 MG capsuleIndication s:Other chronic pain TAKE 1 CAPSULE BY MOUTH TWICE DAILY 60 capsule 2 025 Active gabapentin (Neurontin) 300 MG capsuleIndication s:Other chronic pain TAKE 1 CAPSULE BY MOUTH TWICE DAILY 60 capsule 2 5 9:26 AM EST 025 2024 Discontinued albuterol (Ventolin HFA) 108 (90 Base) MCG/ACT inhalerIndication s:Asthma,Bronchos pasm INHALE 2 PUFFS BY MOUTH EVERY 4 TO 6 HOURS NEEDED FOR SHORTNESS OF BREATH OR WHEEZING 18 g 1 025 2024 Discontinued(R eorder (will not trigger notification to Pharmacy)) Active Problems Problem Noted Date Diagnosed Date Homelessness 01/29/2024 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 straight-identified cis-female with previous documented hx of Bipolar Disorder , Trauma, and agoraphobia with panic attacks services including OP Psychotherapy psychopharmacology who presents [...] information about Crisis and Respite programs with [facility]. She denies Safety plan at [...] intervention , Patient to reach out to [facility] team as needed, Comply with medication , Patient to engage in OP therapy , and Patient to reach out to [facility] as needed Assessment & Plan (12/30/2023 10:23 [...] retiring, pt will be referred to new [facility] psychiatric provider. Pt is aware that appts will be via televisit, and that provider will not be employee of [facility]. She gives permission to share PHI. Any issues or concerns, contact [facility]. All her questions were answered and [...] with the plan. Carpal tunnel syndrome 03/30/2015 Chronic gastroesophageal reflux disease 03/30/20 Assessment & Plan (12/23/2023 10:08 AM EDT): - restart Omeprazole 20mg x 1 month and f/u with PCP - we discussed about taking it daily due to decreased absorption of certain nutrients - check B12 levels Chronic migraine 03/30/2015 Posttraumatic stress disorder 03/30/2015 Resolved Problems Problem Noted Date Diagnosed Date Resolved Date Left lower quadrant pain 05/19/202403/2025 Assessment & Plan (05/19/2024 10:58 AM EST): Pt with 2 days of severe left lower quadrant pain. Mild dysuria, no hematuria, no cva tenderness appreciated. Severely tender on palpation. Discussed options with pt of ua, and possible management out patient, vs potential need for CT to rule in/out abdominal infection. Pt prefer to go to ER and expect called to [facility] ER for left lower quadrant pain Adjustment disorder 12/24/2023 01/29/20 Viral URI 12/17/2023 04/25/2025 Assessment & Plan (12/17/2023 10:26 AM EDT): -Swabs(COVID, Flu A&B) were negative -recommended supportive care -prescribed nasal spray for congestion as per pt request Cough in adult patient 12/17/202301/22 Acute thoracic back pain 11/14/2017 Asthma 08/28/2015 04/25/2025 Steatosis of liver 03/30/2015 4 Encounters Date Type Department Care Team Description 05/27/2025 Telephone [facility] MEDICINE [address] [place] [address] Cassie Barnett, Nurse Triage 05/26/2025 Refill [facility] MEDICINE [address] [place] [address] Cassie Barnett, Other chronic pain 05/03/2025 Refill [facility] CHC MED & PEDS [address] [place] [address] Cassie Barnett DO 04/20/2025 Telephone [facility] [address] Cassie Barnett DO Call Back Request 04/19/2025 Orders Only GENERIC EXTERNAL DATA DEPARTMENT Provider, Generic External Data 04/15/2025 Telephone [facility] [place] [address] Cassie Barnett DO letter; DTA Form (The patient left a message, regarding a DTA form that was dropped off at [facility] on 03/19/25. I returned her call, and informed her that the form is on the provider's desk, pending signature. She stated that she will be going to the [facility] lab today, and will then go to [facility], to check on the status of it again.) 04/05/[address] [address] Cassie Barnett DO telephone call 03/29/2025 11:30 AM EDT Office Visit [address] [address] Cassie Barnett DO Essential hypertension (Primary Dx); Other hyperlipidemia; Coronary arteriosclerosis; Chronic bipolar disorder (CMS/HCC) (HCC); Moderate persistent asthma without complication; Fatty liver; Chronic gastroesophageal reflux disease; Chronic migraine; Chronic bilateral low back pain with bilateral sciatica; Fibromyalgia; Chronic neck pain; Chronic pain of both knees; Abscess of right breast; Healthcare maintenance; Breast cancer screening by mammogram 03/29/2025 Travel 03/24/[address] [address] Cassie Barnett DO Chart Prep 03/23/[address] [address] Cassie Barnett DO 03/22/2025 Travel 03/22/2025 Patient Outreach [address] [address] Cassie Barnett DO Care Coordination (CHW outreach for SDOH housing search-referral completed ) 03/22/2025 Patient Outreach [facility] MEDICINE [address] [place] [address] Cassie Barnett DO Pre-visit Planning (SDOH screening negative and tobacco screening negative) 03/20/2025 Refill [facility] MED & PEDS [address] [place] [address] Cassie Barnett DO 03/18/2025 Telephone [facility] MEDICINE [address] [place] [address] Cassie Barnett, Other 03/18/2025 Travel 03/04/2025 Telephone [facility] MEDICINE [address], [place] [phone] Cassie Barnett DO Nurse Triage from Last 3 Months Immunizations Immunization Administration [...] 2 000 - 2011 Smokeless Tobacco: Former Tobacco Cessation:Counseling [...] with others, in a hotel, in a mcc, living outside on the street, on a [...] 03/22/2025 Tobacco Screening 03/29/2026 03/29/2025 Lipid Panel 04/19/2030 04/19/2025, 12/14, 07/24/2024, Additional history exists DTaP/Tdap/Td Vaccines (3 - Td or Tdap) 05/22/2032 05/22/2022, 04/09/2012 RSV Patients and Patients Aged 60 years or older (1 - 1-dose 75+ series) 09/05/2050 Hepatitis A Vaccines Completed 10/04/2011, 04/30/2011, 11/26/2010 Hepatitis B Vaccines Completed 10/04/2011, 04/30/2011, 11/26/2010 HIV Screening Completed 04/19/2025, 08/15, 04/27/2020 Hepatitis C Screening Completed 04/19/2025 , 09/10/2021, 04/27/2020, Additional history exists HIB Vaccines Aged Out No longer eligi [...] Procedure Name Priority Date/Time Associated Diagnosis Comments LIPID PANEL, STANDARD Routine 04/19/2025 9:53 AM EST ALPHA FETOPROTEIN, TUMOR MARKER Routine 04/19/2025 9:53 AM EST Other hyperlipidemia Fatty liver Essential hypertension RPR (MONITOR) W/REFL TITER Routine 04/19/2025 9:53 AM EST Other hyperlipidemia Fatty liver Essential hypertension HEPATITIS C AB W/REFL TO HCV RNA, QN, PCR Routine 04/19/2025 9:53 AM EST Other hyperlipidemia Fatty liver Essential hypertension HIV 1/2 ANTIGEN/ANTIBODY, FOURTH GENERATION W/RFL Routine 04/19/2025 9:53 AM EST Other hyperlipidemia Fatty liver Essential hypertension CBC Routine 04/19/2025 9:53 AM EST Other hyperlipidemia Fatty liver Essential hypertension BASIC METABOLIC PANEL Routine 04/19/2025 9:53 AM EST Other hyperlipidemia Fatty liver Essential hypertension HEMOGLOBIN A1C Routine 04/19/2025 9:53 AM EST Other hyperlipidemia Fatty liver Essential hypertension HEPATIC FUNCTION PANEL Routine 04/19/2025 9:53 AM EST Other hyperlipidemia Fatty liver Essential hypertension TSH Routine 04/19/2025 9:53 AM EST Other hyperlipidemia Fatty liver Essential hypertension VITAMIN D,25-OH,TOTAL,IA Routine 04/19/2025 9:53 AM EST Other hyperlipidemia Fatty liver Essential hypertension T4, FREE Routine 04/19/2025 9:53 AM EST Other hyperlipidemia Fatty liver Essential hypertension ALBUMIN, RANDOM URINE W/CREATININE Routine 04/19/2025 9:48 AM EST Other hyperlipidemia Fatty liver Essential hypertension XR KNEE 4+ VIEWS RIGHT Routine 04/15/2025 9:35 AM EDT Chronic pain of both knees XR KNEE 4+ VIEWS LEFT Routine 04/15/2025 9:33 AM EDT Chronic pain of both knees BI MAMMOGRAM SCREENING TOMOSYNTHESIS BILATERAL Routine 01/09/2024 9:28 AM EDT HM PAP/HPV Routine 06/12/2020 from Last 3 Months or Most Recently Relevant to Health Maintenance Results * Vitamin D, 25-Hydroxy, Total, Immunoassay (04/19/2025 9:53 AM EST) Vitamin D 25-OH Total 32.4 >30 ng/mL [facility] Comment: Health Based Reference Values*< 20 ng/mL Bkqrmbaqd13-39 ng/mL Insufficient> 30 ng/mL Sufficient*Jesus REA. N Engl J Med. 2007;357:266-280There is no well-established upper level of normal vitamin Dlevels. Some laboratories use 50 ng/mL as an upper limit ofnormal. However, toxicity is patient-dependent and may occurat any level. Careful correlation with the patient'spresentation is necessary and, if there is concern forvitamin D toxicity, treatment should be consideredirrespective of the serum level.Care must be taken in interpreting Vitamin D results fromdifferent laboratories and methodologies. Published datademonstrated that results from patients undergoinghemodialysis may show a negative bias when tested withvarious automated 25-OH vitamin D assays when compared toLC-MS/MS.When testing samples from patients whose predominant form ofVitamin D is Vitamin D2, such as patients receiving VitaminD2 supplementation, results that are subtherapeutic shouldbe confirmed with another method such as LC-MS/MS. Blood Venous blood specimen / Unknown 04/19/2025 9:53 AM EST 04/19/2025 11:50 AM EST Cassie Barnett LAB BLOOD ORDERABLES Final R psychiatric hospital Performing Organization Address [facility] Co de Phone Number [facility] [address] [place] [phone] * Hepatitis C Antibody with Reflex to HCV, RNA, Quantitative, Real-Time PCR (04/19/2025 9:53 AM EST) Pathologist [facility] Hepatitis C Antibody Nonreactive Nonreactive [facility] Comment:Antibodies to HCV no t detected; does not exclude early acuteHCV infection. Blood Venous blood specimen / Unknown 04/19/2025 9:53 AM EST 04/19/2025 11:50 AM EST Cassie Barnett LAB BLOOD ORDERABLES Final R esult Performing Organization Address [facility] Co de Phone Number [facility] [address] [place] [phone] * (ABNORMAL) Alpha-Fetoprotein, Tumor Marker (04/19/2025 9:53 AM EST) Alpha Fetoprotein 7.4(A) ng/mL [facility] Comment:Reference Range: <6. 1The use of AFP as a tumor marker in females is not recommended.This test was performed using the Eran Coulterchemiluminescent method. Values obtained fromdifferent assay methods cannot be usedinterchangeably. AFP levels, regardless ofvalue, should not be interpreted as absoluteevidence of the presence or absence of disease.THIS TEST WAS PERFORMED AT:[facility] [address] [id number] WANG MD Blood Venous blood specimen / Unknown 04/19/2025 9:53 AM EST 04/19/2025 11:54 AM EST Cassie Barnett DO LAB BLOOD ORDERABLES Final R esult Performing Organization Address [facility] Co de Phone Number [facility] [address] [place] [phone] * RPR (Monitor) with Reflex to??Titer (04/19/2025 9:53 AM EST) RPR (Monitor) w/Refl Titer NON-REACTI VE NON-REACT NINA [facility] Comment:THIS TEST WAS PERFOR MED AT:[facility] [address] [id number] WANG MD Rapid Plasma Reagin Ab Titer TNP [facility] Blood Venous blood specimen / Unknown 04/19/2025 9:53 AM EST 04/19/2025 11:54 AM EST us Cassie Barnett DO LAB BLOOD ORDERABLES Final R esult Performing Organization Address [facility] Co de Phone Number [facility] [address] [place] [phone] * HIV-1/2 Antigen and Antibodies, Fourth Generation, with Reflexes (04/19/2025 9:53 AM EST) HIV AB/AG Nonreactive Nonreactive [facility] Comment:HIV-1 p24 Ag and/or HIV-1/HIV-2 Ab not detected.A test result that is nonreactive does not exclude thepossibility of exposure to or infection with HIV-1 and/orHIV-2. Nonreactive results in this assay for individualswith prior exposure to HIV-1 and/or HIV-2 may be due toantigen and antibody levels that are below the limit ofdetection of this assay.The Loomia HIV Ag/Ab Combo assay result andsupplemental assay results should be interpreted inconjunction with the patient's clinical presentation,history and other laboratory results. If the results areinconsistent with clinical evidence, additional testing issuggested to confirm the result. Blood Venous blood specimen / Unknown 04/19/2025 9:53 AM EST 04/19/2025 11:50 AM EST us Cassie Barnett DO LAB BLOOD ORDERABLES Final R esult [facility] [address] [place] [phone] * (ABNORMAL) CBC (04/19/2025 9:53 AM EST) White Blood Count 4.5(L) 4.8 - 10.8 X10*3/uL [facility] Red Blood Count 5.08 4.20 - 5.50 X10*6/uL [facility] Hemoglobin 14.9 12.0 - 16.0 g/dl [facility] Hematocrit 45.4 37.0 - 47.0 % [facility] Mean Corpuscular Volume 89.4 80.0 - 98.0 fL [facility] Mean Corpuscular Hemoglobin 29.3 27.0 - 33.0 pg [facility] Mean Corpuscular HGB Conc 32.8 31.0 - 35.0 g/dl [facility] Red Cell Distribution Width 13.7 11.0 - 16.0 % [facility] Platelet Count 321 160 - 400 X10*3/uL [facility] Mean Platelet Volume 9.8 9.4 - 12.3 fL [facility] NRBC Pct Auto 0.0 0.0 - 0.2 /100WBC [facility] NRBC Abs Auto 0.000 0.0 - 0.012 X10*3/uL [facility] Blood Venous blood specimen / Unknown 04/19/2025 9:53 AM EST 04/19/2025 11:54 AM EST us Cassie Barnett DO LAB BLOOD ORDERABLES Final R esult Performing Organization Address City/[facility]/ZIP Co de Phone Number [facility] [address] [place] [phone] * TSH (04/19/2025 9:53 AM EST) Thyroid Stimulating Hormone 0.88 0.32 - 4.0 uIU/mL [facility] Comment:TSH 3rd Generation ( [facility]) Blood Venous blood specimen / Unknown 04/19/2025 9:53 AM EST 04/19/2025 11:54 AM EST Cassie Barnett DO LAB BLOOD ORDERABLES Final R esult Performing Organization Address [facility] Co de Phone Number [facility] [address] [place] [phone] * T4, Free (04/19/2025 9:53 AM EST) Free T4 (Free Thyroxine) 0.91 0.71 - 1.85 ng/dL [facility] Blood Venous blood specimen / Unknown 04/19/2025 9:53 AM EST 04/19/2025 11:50 AM EST Cassie Barnett DO LAB BLOOD ORDERABLES Final R esult Performing Organization Address City/[facility] Co de Phone Number [facility] [address] [place] [phone] * Hemoglobin A1c (04/19/2025 9:53 AM EST) Hemoglobin A1c 5.6 <6.0 % [facility] Comment:Hemoglobin A1C Refer ence Range Adults: 4.8 - 6.0 % Non diabetic: < 6.0 % Goal: < 7.0 %Additional Action Suggested: > 8.0 %Note: Hemoglobin A1c results are invalid for patients with abnormal amounts of HbF. Blood transfusions may impact the HbA1c concentration in the patient sample. Estimated Average Glucose 114 mg/dL [facility] Comment:eAG = Estimated ave rage glucose which is %A1C expressed asaverage glucose, using the formula of the X3K-EuewokqEynufah Glucose study (ADAG), Diabetes Care, Vol.31,#8,2007 Blood Venous blood specimen / Unknown 04/19/2025 9:53 AM EST 04/19/2025 11:50 AM EST Cassie Barnett LAB BLOOD ORDERABLES Final R esult Performing Organization Address [facility] Co de Phone Number [facility] [address] [place] [phone] * Hepatic Function Panel (04/19/2025 9:53 AM EST) Bilirubin, Total 0.3 0.0 - 1.0 mg/dL [facility] Bilirubin, Direct 0.1 0.0 - 0.5 mg/dL [facility] Aspartate Amino Transferase 22 5 - 31 U/L [facility] Alanine Aminotransferase 25 0 - 31 U/L [facility] Total Protein 7.7 6.5 - 8.0 g/dL [facility] Albumin Level 4.4 3.5 - 5.0 g/dL [facility] Alkaline Phosphatase 52 39 - 117 U/L [facility] Blood Venous blood specimen / Unknown 04/19/2025 9:53 AM EST 04/19/2025 11:54 AM EST Cassie Barnett LAB BLOOD ORDERABLES Final R esult Performing Organization Address [facility] Co de Phone Number [facility] [address] [place] [phone] * (ABNORMAL) Lipid Panel, Standard (04/19/2025 9:53 AM EST) Triglycerides 171(H) <150 mg/dL [facility] Comment:Desirable Triglyceri de: less than 150 mg/dLBorderline High Triglyceride 150-199 mg/dLHigh Triglyceride: 200-499 mg/dLVery High Triglyceride: greater than or equal to 5OO mg/dL Cholesterol 146 <200 mg/dL [facility] Comment:Desirable Cholestero l: less than 200 mg/dLBorderline High Cholesterol: 200-239 mg/dLHigh Cholesterol: greater than 239 mg/dL LDL Cholesterol Calculated 62 <100 mg/dL [facility] Comment:Desirable LDL: less than 100 mg/dLNear Optimal/Above Optimal LDL: 110- 129 mg/dLBorderline High LDL: 130-159 mg/dLHigh LDL: 160-189 mg/dLVery High LDL: greater than or equal to 190 mg/dL HDL Cholesterol 50 >40 mg/dL [facility] Comment:Desirable HDL: great er than 40 mg/dL Note: This HDL assay may give artificially low results in patients with liver disease. 04/19/2025 9:53 AM EST 04/19/2025 11:54 AM EST us Generic External Data Provider LAB BLOOD ORDERAB LES Final Result [facility] [address] [place] [phone] * (ABNORMAL) Basic Metabolic Panel (04/19/2025 9:53 AM EST) Sodium 139 135 - 145 mmol/L [facility] Potassium 4.2 3.3 - 5.1 mmol/L [facility] Chloride 109(H) 96 - 108 mmol/L [facility] Carbon Dioxide 25 22 - 29 mmol/L [facility] Anion Gap 9(L) 12 - 20 [facility] Urea Nitrogen (BUN) 12 9 - 16 mg/dL [facility] Creatinine, Serum 0.77 0.5 - 1.4 mg/dL [facility] Estimated Glomerular Filt Rate >60 [facility] Comment:Chronic Kidney Disea se: Estimated GFR < 60 mL/min/1.81k2Rhbogs Kidney Disease: Estimated GFR < 15 mL/min/1.73m2 Glucose 92 60 - 115 mg/dL [facility] Calcium 9.1 8.4 - 10.2 mg/dL [facility] Blood Venous blood specimen / Unknown 04/19/2025 9:53 AM EST 04/19/2025 11:54 AM EST us Cassie Barnett DO LAB BLOOD ORDERABLES Final R esult Performing Organization Address City/[facility] Co de Phone Number [facility] [address] [place] [address] [phone] * Albumin, Random Urine W/Creatinine (04/19/2025 9:48 AM EST) Creatinine, Urine 192.19 mg/dL [facility] Microalbumin Urine 9.0 mg/L [facility] Microalbum Creatinine Ratio Ur 4.6 <30 ug/mg cr [facility] Comment:Albumin/Creatinine R atio Reference Ranges: Normal: < 30 ug/mg creatinine Microalbuminuria: 30 - 300 ug/mg creatinineClinical Albuminuria: > 300 ug/mg creatinine Urine (Urine, Random) 04/19/2025 9:48 AM EST 04/19/2025 11:35 AM EST us Cassie Barnett DO LAB URINE ORDERABLES Final R esult Performing Organization Address City/[facility] Co de Phone Number [facility] [address] [place] [phone] * XR Knee 4+ Views Right (04/15/2025 9:35 AM EDT) Anatomical Region Laterality Modality Lower Extremities, Knee Right Radiogra phic Imaging 04/15/2025 9:35 AM EDT Narrative 04/15/2025 9:51 AM EDT [address] [address] XRay Report Signed Patient: Marcela Lopez MR#: [id number] 2 : 1975 Acct:[id number] Age/Sex: 49 / F ADM Date: 04/15/25 Loc: [facility] Attending Dr: Cassie Barnett DO Ordering Physician: Cassie Barnett DO Date of Service: 04/15/25 Procedure(s): XR knee RT 4V Accession Number(s): [id number] cc: Cassie Barnett DO Reason for Exam: [...] MD in OV> 04/15/2548 DD/ TD/TT: 04/15/25935 Extrusion Press Adjuster: Procedure Note Donotuseinterpreter, Image - 04/15/[address] [address] XRay Report Signed Patient: Marcela LopezMR#: [id number] 2 : 1975Acct:[id number] Age/Sex: 49 / FADM Date: 04/15/25 Loc: [facility] Attending Dr: Cassie Barnett DO Ordering Physician: Cassie Barnett DO Date of Service: 04/15/25 Procedure(s): XR knee RT 4V Accession Number(s): [id number] cc: Cassie Barnett DO Reason for Exam: [...] Niko Xiao MD 04/15/2025 09:48 AM EDT RP Dictated By: Niko Xiao MD Signed By: <Electronically signed by Niko Xiao MD in OV> 04/15/2548 DD/ 4 TD/TT: 04/15/25935 Extrusion Press Adjuster: Cassie Barnett DO IMG XR PROCEDURES Final Resu lt * XR Knee 4+ Views Left (04/15/2025 9:33 AM EDT) Anatomical Region Laterality Modality Lower Extremities, Knee Left Radiogra phic Imaging 04/15/2025 9:33 AM EDT Narrative 04/15/2025 9:49 AM EDT [address] [address] XRay Report Signed Patient: Marcela Lopez MR#: [id number] 2 : 1975 Acct:[id number] Age/Sex: 49 / F ADM Date: 04/15/25 Loc: HO.HHCX Attending Dr: Cassie Barnett DO Ordering Physician: Cassie Barnett DO Date of Service: 04/15/25 Procedure(s): XR knee LT 4V Accession Number(s): [id number] cc: Cassie Barnett DO Reason for Exam: [...] in OV> 04/15/25945 DD/ 2 TD/TT: 04/15/25935 Extrusion Press Adjuster: Procedure Note Donotuseinterpreter, Image - 04/15/2025 [place] [address] XRay Report Signed Patient: Marcela LopezMR#: [id number] 2 : 1975Acct:[id number] Age/Sex: 49 / FADM Date: 04/15/25 Loc: HO.HHCX Attending Dr: Cassie Barnett DO Ordering Physician: Cassie Barnett DO Date of Service: 04/15/25 Procedure(s): XR knee LT 4V Accession Number(s): [id number] cc: Cassie Barnett DO Reason for Exam: [...] in OV> 04/15/25945 DD/ 2 TD/TT: 04/15/25935 Extrusion Press Adjuster: Cassie Barnett DO IMG XR PROCEDURES Final Resu lt * BI Mammogram Screening Tomosynthesis Bilateral (01/09/2024 9:28 AM EDT) Anatomical Region Laterality Modality Breast Bilateral Mammography 01/09/2024 9:28 AM EDT Narrative 01/19/2024 11:18 PM EDT [facility] [address] [place] [address] Mammography Report Signed Patient: Marcela Lopez MR#: [id number] 2 : 1975 Acct:[id number] Age/Sex: 48 / F ADM Date: 01/09/24 Loc: HO.MAMMO Attending Dr: Cassie Barnett DO Ordering Physician: Cassie Barnett DO Results: 2B enign Findings Date of Service: 01/09/24 Follow Up: 1 Year From [facility] Mammogram Procedure(s): MM tomosynthesis screening BI Accession Number(s): [id number] cc: Cassie Barnett DO EXAMINATION: MM SCREENING [...] in OV> 01/19/24 2314 DD/ 7 TD/TT: Extrusion Press Adjuster: Procedure Note Donotuseinterpreter, Image - 01/19/2024 [facility] [address] [place], [place] [address] Mammography Report Signed Patient: Marcela LopezMR#: [id number] 2 : 1975Acct:[id number] Age/Sex: 48 / FADM Date: 01/09/24 Loc: MAMMO Attending Dr: Cassie Barnett DO Ordering Physician: Cassie Barnettults: 2B enign Findings Date of Service: 01/09/24Follow Up: 1 Year From Orig ina Mammogram Procedure(s): MM tomosynthesis screening BI Accession Number(s): [id number] cc: Cassie Barnett DO EXAMINATION: MM SCREENING [...] Knowles MD in OV> 01/19/24 2314 DD/ 0928 TD/TT: Extrusion Press Adjuster: Cassie Barnett DO IMG BI PROCEDURES Final Resu lt * Hm Pap Smear (06/12/2020) Pap Negative for intraephithelial lesion or malignancy Negative for intraephithelial lesion or malignancy, Other HPV Undetected Undetected, Indeterminate, Quantitative, Not Detected Historical Provider HEALTH MAINTENANCE Final Result from Last 3 Months or Most Recently Relevant to Health Maintenance Insurance [employer] Care Teams Awning Maker Relationship Specialty Start Date End Date Cassie Barnett DO [address] [place] [id number] PCP - General Family Medicine 12/29/18 Frederick Heaton FNP [address] [place] [address] Nurse Practitioner Family Medicine 05/20/23
== END 2025-05-31 13:14 | disposition home or self-care (01) ==
LOC: HO.HGS 12:40
PROVIDERS: PCP Family Medicine; Visit Provider Surgery
DX: Z80.3 Family history of malignant neoplasm of breast (principal); N61.0 Mastitis without abscess
CPT/HCPCS: 99204

== ENCOUNTER → 2025-05-31 12:39 | Outpatient (BNVA) | payer MEDICAID, SELFPAY | PROVIDERS: PCP Family Medicine; Visit Provider Surgery | DX: N61.0 Mastitis without abscess (principal); L73.9 Follicular disorder, unspecified; Z80.3 Family history of malignant neoplasm of breast; Z98.51 Tubal ligation status | CPT/HCPCS: 99202 ==

== ENCOUNTER 2025-06-02 11:50 | Outpatient (REF) | payer MEDICAID, SELFPAY ==
--- OUTSIDE RECORDS SUMMARY | 2025-06-02 15:44 | XMS_ITS | Clinical Summary ---
Author Organization [employer] Address [address] [facility] 7[address] [place] [address] Care Team Providers Care Maintenance Welder Name Role Phone Cassie Barnett DO Primary Care Provider + [phone] Frederick Heaton Unavailable Unavailable Allergies No known active allergies Medications * This document contains information received from the source organization and may not represent a complete record from that organization. triamcinolone (Nasacort) 55 MCG/ACT nasal inhaler Inhale 2 sprays 1 (one) time each day. 04/24/20 21 Active albuterol (2.5 MG/3ML) 0.083% nebulizer solution Inhale 3 mL every 4 (four) hours. 04/24/20 21 Active naloxone (Narcan) 4 mg/0.1 mL nasal spray Administer 0.1 mL into affected nostril(s). 12/27/19 21 Active Proventil HFA 108 (90 Base) MCG/ACT inhalerIndication s:Asthma, unspecified asthma severity, unspecified whether complicated, unspecified whether persistent INHALE 2 PUFFS BY MOUTH EVERY 4 TO 6 HOURS NEEDED FOR COUGH, FOR WHEEZING AND SHORTNESS OF BREATH 6.7 g 2 06/28/19 23 Active ipratropium (Atrovent) 0.06 % nasal sprayIndications: Viral URI 2 sprays each nostril bid prn rhinorrhea, arabic 15 mL 12/17/19 24 Active aspirin (Aspirin Low Dose) 81 MG EC tabletIndications :Hyperlipidemia, unspecified hyperlipidemia type Take 1 tablet (81 mg) by mouth at bedtime. 90 tablet 12/23/19 24 Active lisinopril 20 MG tabletIndications :Hypertension, unspecified type Take 0.5 tablets (10 mg) by mouth Once per day. 90 tablet 12/23/19 24 Active Blood Pressure Monitoring (Blood [facility] Cuff) [facility] Use daily as prescribed 1 each 12/23/19 24 Active omeprazole (PriLOSEC) [address] capsuleIndication s:Gastroesophagea l reflux disease, unspecified whether esophagitis present Take 1 capsule (20 mg) by mouth before breakfast. Do not crush or chew. 90 capsule 12/23/19 24 Active cloNIDine (Catapres) 0.1 MG tablet Take 1 tablet (0.1 mg) by mouth 2 times daily. 180 tablet 3 12/30/19 24 Active OXcarbazepine (Trileptal) 300 MG tablet Take 2 tablets (600 mg) by mouth 2 times daily. 360 tablet 3 12/30/19 24 Active perphenazine 8 MG tablet Take 1 tablet (8 mg) by mouth 2 times daily. 180 tablet 3 12/30/19 24 Active cholecalciferol (Vitamin D-3) 50 MCG (2000 UT) capsule Take 1 capsule (50 mcg) by mouth Once per day. 90 capsule 3 01/07/20 24 Active fluticasone furoate (Arnuity Ellipta) 100 MCG/ACT inhaler Inhale 1 puff Once per day. Rinse mouth with water after use to reduce aftertaste and incidence of candidiasis. Do not swallow. 1 each 01/29/20 24 Active Diclofenac Sodium 1 % gel Apply 2 g topically if needed in the morning, at noon, in the evening, and at bedtime (pain). 100 g 3 07/02/19 25 Active cetirizine (ZyrTEC) 10 MG tabletIndications :Seasonal allergic rhinitis due to other allergic trigger Take 1 tablet (10 mg) by mouth in the morning. 90 tablet 3 12/05/19 25 Active zolpidem (Ambien) 10 MG tablet TAKE 1 TABLET BY MOUTH AT BEDTIME NEEDED FOR SLEEP 30 tablet 3 5 1:12 PM EST 01/19/20 25 Active montelukast (Singulair) 10 MG tabletIndications :Seasonal allergic rhinitis due to other allergic trigger TAKE 1 TABLET BY MOUTH EVERY EVENING 90 tablet 3 5 9:26 AM EST 01/20/20 25 Active amitriptyline (Elavil) 25 MG tablet Take 1 tablet (25 mg) by mouth at bedtime. 90 tablet 3 01/21/20 25 Active SUMAtriptan (Imitrex) 25 MG tablet TAKE 1 TABLET BY MOUTH AT ONSET OF MIGRAINE. MAY REPEAT AFTER 2 HOURS IF NEEDED. DO NOT EXCEED 2 TABLETS / 24 HOURS 9 tablet 3 01/22/20 25 Active baclofen (Lioresal) 10 MG tablet TAKE 1 TABLET BY MOUTH THREE TIMES DAILY IN THE MORNING, AT NOON, AND AT BEDTIME NEEDED FOR MUSCLE SPASMS 60 tablet 3 5 9:26 AM EST 03/24/20 25 Active rosuvastatin (Crestor) 40 MG tabletIndications :Other hyperlipidemia Take 1 tablet (40 mg) by mouth at bedtime. 90 tablet 3 04/05/20 25 Active acetaminophen (Tylenol 8 Hour) 650 MG ER tablet Take 1 tablet (650 mg) by mouth every 8 (eight) hours if needed for mild pain. 60 tablet 3 5 9:26 AM EST 04/05/20 25 2025 Active albuterol (Ventolin HFA) 108 (90 Base) MCG/ACT inhalerIndication s:Asthma,Bronchos pasm INHALE 2 PUFFS BY MOUTH EVERY 4 TO 6 HOURS NEEDED FOR SHORTNESS OF BREATH OR WHEEZING 18 g 1 5 9:26 AM EST 05/04/20 25 Active gabapentin (Neurontin) 300 MG capsuleIndication s:Other chronic pain TAKE 1 CAPSULE BY MOUTH TWICE DAILY 60 capsule 2 05/26/20 25 Active gabapentin (Neurontin) 300 MG capsuleIndication s:Other chronic pain TAKE 1 CAPSULE BY MOUTH TWICE DAILY 60 capsule 2 5 9:26 AM EST 02/09/20 25 2024 Discontinued Active Problems Problem Noted Date Diagnosed Date [...] information about Crisis and Respite programs with [facility]). She denies Safety plan at this moment. [...] intervention , Patient to reach out to [facility] team as needed, Comply with medication , Patient to engage in OP therapy , and Patient to reach out to [facility] as needed Assessment & Plan (12/30/2023 10:23 [...] retiring, pt will be referred to new [facility] psychiatric provider. Pt is aware that appts will be via televisit, and that provider will not be employee of [facility]. She gives permission to share PHI. Any issues or concerns, contact [facility]. All her questions were [...] syndrome 03/30/2015 Chronic gastroesophageal reflux disease 03/30/20 15 Assessment & Plan (12/23/2023 10:08 AM EDT): [...] go to ER and expect called to [facility] ER for left lower quadrant pain [...] Type Department Care Team Description 05/27/2025 Telephone [facility] MEDICINE [address] [place] [address] Cassie Barnett DO Nurse Triage 05/26/2025 Refill [facility] MEDICINE [address] [place] [address] Cassie Barnett DO Other chronic pain 05/03/2025 Refill [facility] CHC MED & PEDS [address] [place], [place] [phone] Cassie Barnett DO 04/20/2025 Telephone [facility] MEDICINE [address] [place] [address] Cassie Barnett DO Call Back Request 04/19/2025 Orders Only GENERIC EXTERNAL DATA DEPARTMENT Provider, Generic External Data 04/15/[address] [address] Cassie Barnett DO letter; DTA Form (The patient left a message, regarding a DTA form that was dropped off at [facility] on 03/19/25. I returned her call, and informed her that the form is on the provider's desk, pending signature. She stated that she will be going to the [facility] lab today, and will then go to [facility], to check on the status of it again.) 04/05/[address] [address] Cassie Barnett DO telephone call 03/29/2025 11:30 AM EDT Office Visit [address] [address] Cassie Barnett DO Essential hypertension (Primary Dx); Other hyperlipidemia; Coronary arteriosclerosis; Chronic bipolar disorder (CMS/HCC) (HCC); Moderate persistent asthma without complication; Fatty liver; Chronic gastroesophageal reflux disease; Chronic migraine; Chronic bilateral low back pain with bilateral sciatica; Fibromyalgia; Chronic neck pain; Chronic pain of both knees; Abscess of right breast; Healthcare maintenance; Breast cancer screening by mammogram 03/29/2025 Travel 03/24/[address] [address] Cassie Barnett DO Chart Prep 03/23/[address] [address] Cassie Barnett DO 03/22/2025 Travel 03/22/2025 Patient Outreach [address] [address] Cassie Barnett DO Care Coordination (CHW outreach for SDOH housing search-referral completed ) 03/22/2025 Patient Outreach [address] [address] Cassie Barnett DO Pre-visit Planning (SDOH screening negative and tobacco screening negative) 03/20/2025 Refill [facility] MED & PEDS [address] [place] [address] Cassie Barnett, 03/18/2025 Telephone [facility] MEDICINE [address] [facility] [place] [address] Cassie Barnett, Other 03/18/2025 Travel 03/04/2025 Telephone [facility] MEDICINE [address] [facility] [place] [address] Cassie Barnett, Nurse Triage from Last 3 Months Immunizations [...] Vitamin D 25-OH Total 32.4 >30 ng/mL [facility] Comment: Health Based Reference Values*< 20 ng/mL Loplkhfpx62-64 ng/mL Insufficient> 30 ng/mL Sufficient*Jesus REA. N [...] AM EST 04/19/2025 11:50 AM EST Cassie Ericka LAB BLOOD ORDERABLES Final R esult Performing Organization Address City/[facility] Co de Phone Number [facility] [address] [place] [phone] * Hepatitis C Antibody with Reflex to HCV, RNA, Quantitative, Real-Time PCR (04/19/2025 9:53 AM EST) Pathologist [facility] Hepatitis C Antibody Nonreactive Nonreactive [facility] Comment:Antibodies to HCV no t detected; does not exclude early acuteHCV infection. Blood Venous blood specimen / Unknown 04/19/2025 9:53 AM EST 04/19/2025 11:50 AM EST Cassie Ericka LAB BLOOD ORDERABLES Final R esult Performing Organization Address [facility] Co de Phone Number [facility] [address] [place] [phone] * (ABNORMAL) Alpha-Fetoprotein, Tumor Marker (04/19/2025 9:53 AM EST) Pathologist [facility] Alpha Fetoprotein 7.4(A) ng/mL [facility] Comment:Reference Range: <6. 1The use of AFP as a tumor marker in females is not recommended.This test was performed using the Eran Coulterchemiluminescent method. Values obtained fromdifferent assay methods cannot be usedinterchangeably. AFP levels, regardless ofvalue, should not be interpreted as absoluteevidence of the presence or absence of disease.THIS TEST WAS PERFORMED AT:[facility] [place] [phone] WANG MD Blood Venous blood specimen / Unknown 04/19/2025 9:53 AM EST 04/19/2025 11:54 AM EST Cassie Barnett DO LAB BLOOD ORDERABLES Final R esult Performing Organization Address [facility] Co de Phone Number [facility] [address] [place] [phone] * RPR (Monitor) with Reflex to??Titer (04/19/2025 9:53 AM EST) RPR (Monitor) w/Refl Titer NON-REACTI VE NON-REACT NINA [facility] Comment:THIS TEST WAS PERFOR MED AT:[facility] [place] [phone] WANG MD Rapid Plasma Reagin Ab Titer TNP [facility] Blood Venous blood specimen / Unknown 04/19/2025 9:53 AM EST 04/19/2025 11:54 AM EST Cassie Ericka DO LAB BLOOD ORDERABLES Final R esult Performing Organization Address [facility] Co de Phone Number [facility] [address] [place] [phone] * HIV-1/2 Antigen and Antibodies, Fourth Generation, with Reflexes (04/19/2025 9:53 AM EST) HIV AB/AG Nonreactive Nonreactive [facility] Comment:HIV-1 p24 Ag and/or HIV-1/HIV-2 Ab not detected.A test result that is nonreactive does not exclude thepossibility of exposure to or infection with HIV-1 and/orHIV-2. Nonreactive results in this assay for individualswith prior exposure to HIV-1 and/or HIV-2 may be due toantigen and antibody levels that are below the limit ofdetection of this assay.The [place] HIV Ag/Ab Combo assay result andsupplemental assay results should be interpreted inconjunction with the patient's clinical presentation,history and other laboratory results. If the results areinconsistent with clinical evidence, additional testing issuggested to confirm the result. Blood Venous blood specimen / Unknown 04/19/2025 9:53 AM EST 04/19/2025 11:50 AM EST us Cassie Barnett DO LAB BLOOD ORDERABLES Final R esult [facility] [address] [place] [phone] * (ABNORMAL) CBC (04/19/2025 9:53 AM EST) White Blood Count 4.5(L) 4.8 - 10.8 X10*3/uL [facility] Red Blood Count 5.08 4.20 - 5.50 X10*6/uL [facility] Hemoglobin 14.9 12.0 - 16.0 g/dl [facility] Hematocrit 45.4 37.0 - 47.0 % [facility] Mean Corpuscular Volume 89.4 80.0 - 98.0 fL [facility] Mean Corpuscular Hemoglobin 29.3 27.0 - 33.0 pg [facility] Mean Corpuscular HGB Conc 32.8 31.0 - 35.0 g/dl [facility] Red Cell Distribution Width 13.7 11.0 - 16.0 % [facility] Platelet Count 321 160 - 400 X10*3/uL [facility] Mean Platelet Volume 9.8 9.4 - 12.3 fL [facility] NRBC Pct Auto 0.0 0.0 - 0.2 /100WBC [facility] NRBC Abs Auto 0.000 0.0 - 0.012 X10*3/uL [facility] Blood Venous blood specimen / Unknown 04/19/2025 9:53 AM EST 04/19/2025 11:54 AM EST us Cassie Ericka DO LAB BLOOD ORDERABLES Final R esult Performing Organization Address City/[facility]/ZIP Co de Phone Number [facility] [address] [place] [phone] * TSH (04/19/2025 9:53 AM EST) Thyroid Stimulating Hormone 0.88 0.32 - 4.0 uIU/mL [facility] Comment:TSH 3rd Generation ( [facility]) Blood Venous blood specimen / Unknown 04/19/2025 9:53 AM EST 04/19/2025 11:54 AM EST Cassie Ericka DO LAB BLOOD ORDERABLES Final R esult Performing Organization Address [facility] Co de Phone Number [facility] [address] [place] [phone] * T4, Free (04/19/2025 9:53 AM EST) Free T4 (Free Thyroxine) 0.91 0.71 - 1.85 ng/dL [facility] Blood Venous blood specimen / Unknown 04/19/2025 9:53 AM EST 04/19/2025 11:50 AM EST Cassie Ericka DO LAB BLOOD ORDERABLES Final R esult Performing Organization Address City/[facility]/ZIP Co de Phone Number [facility] [address] [place] [phone] * Hemoglobin A1c (04/19/2025 9:53 AM EST) Hemoglobin A1c 5.6 <6.0 % [facility] Comment:Hemoglobin A1C Refer ence Range Adults: 4.8 - 6.0 % Non diabetic: < 6.0 % Goal: < 7.0 %Additional Action Suggested: > 8.0 %Note: Hemoglobin A1c results are invalid for patients with abnormal amounts of HbF. Blood transfusions may impact the HbA1c concentration in the patient sample. Estimated Average Glucose 114 mg/dL [facility] Comment:eAG = Estimated ave rage glucose which is %A1C expressed asaverage glucose, using the formula of the P0V-NzqddedMhihybt Glucose study (ADAG), Diabetes Care, Vol.31,#8,Jan. 2007 Blood Venous blood specimen / Unknown 04/19/2025 9:53 AM EST 04/19/2025 11:50 AM EST Cassie Barnett DO LAB BLOOD ORDERABLES Final R esult Performing Organization Address City/[facility]/ZIP Co de Phone Number [facility] [address] [place] [address] [phone] * Hepatic Function Panel (04/19/2025 9:53 AM EST) Bilirubin, Total 0.3 0.0 - 1.0 mg/dL [facility] Bilirubin, Direct 0.1 0.0 - 0.5 mg/dL [facility] Aspartate Amino Transferase 22 5 - 31 U/L [facility] Alanine Aminotransferase 25 0 - 31 U/L [facility] Total Protein 7.7 6.5 - 8.0 g/dL [facility] Albumin Level 4.4 3.5 - 5.0 g/dL [facility] Alkaline Phosphatase 52 39 - 117 U/L [facility] Blood Venous blood specimen / Unknown 04/19/2025 9:53 AM EST 04/19/2025 11:54 AM EST us Cassie Barnett DO LAB BLOOD ORDERABLES Final R esult Performing Organization Address [facility]/ZIP Co de Phone Number [facility] [address] [place] [address] [phone] * (ABNORMAL) Lipid Panel, Standard (04/19/2025 9:53 AM EST) Triglycerides 171(H) <150 mg/dL [facility] Comment:Desirable Triglyceri de: less than 150 mg/dLBorderline High Triglyceride 150-199 mg/dLHigh Triglyceride: 200-499 mg/dLVery High Triglyceride: greater than or equal to 5OO mg/dL Cholesterol 146 <200 mg/dL [facility] Comment:Desirable Cholestero l: less than 200 mg/dLBorderline High Cholesterol: 200-239 mg/dLHigh Cholesterol: greater than 239 mg/dL LDL Cholesterol Calculated 62 <100 mg/dL [facility] Comment:Desirable LDL: less than 100 mg/dLNear Optimal/Above Optimal LDL: 110- 129 mg/dLBorderline High LDL: 130-159 mg/dLHigh LDL: 160-189 mg/dLVery High LDL: greater than or equal to 190 mg/dL HDL Cholesterol 50 >40 mg/dL [facility] Comment:Desirable HDL: grea ter than 40 mg/dL Note: This HDL assay may give artificially low results in patients with liver disease. 04/19/2025 9:53 AM EST 04/19/2025 11:54 AM EST us Generic External Data Provider LAB BLOOD ORDERAB LES Final Result [facility] [address] [place] [phone] * (ABNORMAL) Basic Metabolic Panel (04/19/2025 9:53 AM EST) Sodium 139 135 - 145 mmol/L [facility] Potassium 4.2 3.3 - 5.1 mmol/L [facility] Chloride 109(H) 96 - 108 mmol/L [facility] Carbon Dioxide 25 22 - 29 mmol/L [facility] Anion Gap 9(L) 12 - 20 [facility] Urea Nitrogen (BUN) 12 9 - 16 mg/dL [facility] Creatinine, Serum 0.77 0.5 - 1.4 mg/dL [facility] Estimated Glomerular Filt Rate >60 [facility] Comment:Chronic Kidney Disea se: Estimated GFR < 60 mL/min/1.12y0Mioiyl Kidney Disease: Estimated GFR < 15 mL/min/1.73m2 Glucose 92 60 - 115 mg/dL [facility] Calcium 9.1 8.4 - 10.2 mg/dL [facility] Blood Venous blood specimen / Unknown 04/19/2025 9:53 AM EST 04/19/2025 11:54 AM EST aCssie Barnett DO LAB BLOOD ORDERABLES Final R esult Performing Organization Address City/[facility] Co de Phone Number [facility] [address] [place] [phone] * Albumin, Random Urine W/Creatinine (04/19/2025 9:48 AM EST) Creatinine, Urine 192.19 mg/dL [facility] Microalbumin Urine 9.0 mg/L [facility] Microalbum Creatinine Ratio Ur 4.6 <30 ug/mg cr [facility] Comment:Albumin/Creatinine R atio Reference Ranges: Normal: < 30 ug/mg creatinine Microalbuminuria: 30 - 300 ug/mg creatinineClinical Albuminuria: > 300 ug/mg creatinine Urine (Urine, Random) 04/19/2025 9:48 AM EST 04/19/2025 11:35 AM EST us Cassie Barnett DO LAB URINE ORDERABLES Final R esult Performing Organization Address [facility] Co de Phone Number [facility] [address] [place] [address] [phone] * XR Knee 4+ Views Right (04/15/2025 9:35 AM EDT) Anatomical Region Laterality Modality Lower Extremities, Knee Right Radiogra phic Imaging 04/15/2025 9:35 AM EDT Narrative 04/15/2025 9:51 AM EDT [facility] [address] [place] [address] XRay Report Signed Patient: Marcela Lopez MR#: [id number] 2 : 1975 Acct:[id number] Age/Sex: 49 / F ADM Date: 04/15/25 Loc: JOHNNY Attending Dr: Cassie Barnett DO Ordering Physician: Cassie Barnett DO Date of Service: 04/15/25 Procedure(s): XR knee RT 4V Accession Number(s): [id number] cc: Cassie Barnett DO Reason for Exam: [...] Xiao MD in OV> 04/15/2548 DD/ TD/TT: 04/15/2536 [employer]: Procedure Note Donotuseinterpreter, Image - 04/15/[address] [address] XRay Report Signed Patient: Marcela LopezMR#: [id number] 2 : 1975Acct:[id number] Age/Sex: 49 / FADM Date: 04/15/25 Loc: JOHNNY Attending Dr: Cassie Barnett DO Ordering Physician: Cassie Barnett DO Date of Service: 04/15/25 Procedure(s): XR knee RT 4V Accession Number(s): [id number] cc: Cassie Barnett DO Reason for Exam: [...] in OV> 04/15/2548 DD/ 4 TD/TT: 04/15/25935 [employer]: Cassie Barnett DO IMG XR PROCEDURES Final Resu lt * XR Knee 4+ Views Left (04/15/2025 9:33 AM EDT) Anatomical Region Laterality Modality Lower Extremities, Knee Left Radiogra phic Imaging 04/15/2025 9:33 AM EDT Narrative 04/15/2025 9:49 [place] [address] XRay Report Signed Patient: Marcela Lopez MR#: [id number] 2 : 1975 Acct:[id number] Age/Sex: 49 / F ADM Date: 04/15/25 Loc: HO.HHCX Attending Dr: Cassie Barnett DO Ordering Physician: Cassie Barnett DO Date of Service: 04/15/25 Procedure(s): XR knee LT 4V Accession Number(s): [id number] cc: Cassie Barnett DO Reason for Exam: [...] in OV> 04/15/25945 DD/ 2 TD/TT: 04/15/25935 [employer]: Procedure Note Donotnasiminterpreter, Image - 04/15/[address] [address] XRay Report Signed Patient: Marcela LopezMR#: [id number] 2 : 1975Acct:[id number] Age/Sex: 49 / FADM Date: 04/15/25 Loc: .HHCX Attending Dr: Cassie Barnett DO Ordering Physician: Cassie Barnett DO Date of Service: 04/15/25 Procedure(s): XR knee LT 4V Accession Number(s): [id number] cc: Cassie Barnett DO Reason for Exam: [...] in OV> 04/15/25945 DD/ 2 TD/TT: 04/15/25935 [employer]: Cassie Barnett DO IMG XR PROCEDURES Final Resu lt * BI Mammogram Screening Tomosynthesis Bilateral (01/09/2024 9:28 AM EDT) Anatomical Region Laterality Modality Breast Bilateral Mammography 01/09/2024 9:28 AM EDT Narrative 01/19/2024 11:18 PM EDT [address] [place], [place] [address] Mammography Report Signed Patient: Marcela Lopez MR#: [id number] 2 : 1975 Acct:[id number] Age/Sex: 48 / F ADM Date: 01/09/24 Loc: HO.MAMMO Attending Dr: Cassie Barnett DO Ordering Physician: Cassie Barnett DO Results: 2B enign Findings Date of Service: 01/09/24 Follow Up: 1 Year From [facility] Mammogram Procedure(s): MM tomosynthesis screening BI Accession Number(s): [id number] cc: Cassie Barnett DO EXAMINATION: MM SCREENING [...] Knowles MD in OV> 01/19/24 2314 DD/ TD/TT: [employer]: Procedure Note Donotuseinterpreter, Image - 01/19/2024 [facility] [address] [place], [place] [address] Mammography Report Signed Patient: Marcela LopezMR#: [id number] 2 : 1975Acct:[id number] Age/Sex: 48 / FADM Date: 01/09/24 Loc: HO.MAMMO Attending Dr: Cassie Barnett DO Ordering Physician: Cassie Barnettults: 2B enign Findings Date of Service: 01/09/24Follow Up: 1 Year From Orig inal Mammogram Procedure(s): MM tomosynthesis screening BI Accession Number(s): [id number] cc: Cassie Barnett DO EXAMINATION: MM SCREENING [...] by Zoey Knowles MD in OV> 01/19/24 3774 DD/ 7 TD/TT: [employer]: us Cassie Barnett DO IMG BI PROCEDURES Final Resu lt * Hm Pap Smear (06/12/2020) Pap Negative for intraephithelial lesion or malignancy Negative for intraephithelial lesion or malignancy, Other HPV Undetected Undetected, Indeterminate, Quantitative, Not Detected us Historical Provider HEALTH MAINTENANCE Final Result from Last 3 Months or Most Recently Relevant to Health Maintenance Insurance [address] [address] C3 Care Teams Maintenance Welder Relationship Specialty Start Date End Date Cassie Barnett DO [address] [place] [address] PCP - General Family Medicine 12/29/18 Frederick Heaton FNP [address] [place] [address] Nurse Practitioner Family Medicine 05/20/23
--- OUTSIDE RECORDS SUMMARY | 2025-06-02 15:44 | XMS_ITS | Encounter Summary ---
Author Organization [employer] Address [address] [facility] 7t [place] [address] Care Team Providers Care Historic Clothing And Costume Maker Name Role Phone Cassie Barnett DO Primary Care Provider + [phone] Frederick Heaton Unavailable Unavailable Reason for Visit * Reason Comments Med Refill Encounter Details Date Type Department Care Team (Late st Contact Info) Description 12/10/2023 Refill [facility] MEDICINE [address] [place] [address] Frederick Heaton FNP Social History Tobacco Use [...] with others, in a hotel, in a long term, living outside on the street, on a [...] documented as of this encounter Care Teams Historic Clothing And Costume Maker Relationship Specialty Start Date End Date Cassie Barnett DO [address] [place] [address] PCP - General Family Medicine 12/29/18 Frederick Heaton FNP [address] [place] [address] Nurse Practitioner Family Medicine 05/20/23 documented as of this encounter
--- OUTSIDE RECORDS SUMMARY | 2025-06-02 15:44 | XMS_ITS | Encounter Summary ---
Author Organization [employer] Address [address] [facility] 7 [place] [address] Care Team Providers Care Die Tripper Name Role Phone Cassie Barnett DO Primary Care Provider + [phone] Frederick Heaton Unavailable Unavailable Reason for Visit * Reason Onset Date Comments Nurse Triage 12/16/2023 Encounter Details Date Type Department Care Team ([facility] st Contact Info) Description 12/16/2023 Telephone [facility] MEDICINE [address] [place], [place] [phone] Cassie Barnett DO [address] [place] [address] Nurse Triage Social History Tobacco Use Types [...] 12/16/2023 4:36 PM EDT Called pt. Via [place] deputy brand inspector [id number] [place]. Pt. States that she has a [...] cough x3 days. Pt will come into [facility] walk in tomorrow 12/17/23 at 830am for assessment and care. Protocol Used: Cough (Adult) Protocol-Based Disposition: See in Office or Video Visit Today or Tomorrow- Pt. Will come into [facility] walk in when it opens tomorrow [...] provider within 15 minutes Reason: Trouble walking Nauruan Speaker (Accepted Movie Writer) Pt 1/2 documented in this encounter Plan of Treatment Not on file documented as of this encounter Visit Diagnoses Diagnosis Seasonal allergic rhinitis due to other allergic trigger documented in this encounter Additional Health Concerns Assessment Noted Time PHQ-9 Depression Total Score: 8 04/07/20 2:43 PM EDT documented as of this encounter Care Teams Die Tripper Relationship Specialty Start Date End Date Cassie Barnett DO [address] [place] [address] PCP - General Family Medicine 12/29/18 Frederick Heaton FNP [address] [place] [address] Nurse Practitioner Family Medicine 05/20/23 documented as of this encounter
--- OUTSIDE RECORDS SUMMARY | 2025-06-02 15:44 | XMS_ITS | Encounter Summary ---
Author Organization [employer] Address [address] [facility] 7t [place] [address] Care Team Providers Care Cut In Worker Name Role Phone Cassie Barnett DO Primary Care Provider + [phone] Frederick Heaton Unavailable Unavailable Encounter Details Date Type Department Care Team (Late st Contact Info) Description 01/05/2024 Orders Only [facility] MEDICINE [address] [place], [place] [phone] Eileen Jesus MD [address] [place] [address] Social History Tobacco Use Types Packs/Day Years [...] documented as of this encounter Care Teams Cut In Worker Relationship Specialty Start Date End Date Cassie Barnett DO [address] [place] [address] PCP - General Family Medicine 12/29/18 Frederick Heaton FNP [address] [place] [address] Nurse Practitioner Family Medicine 05/20/23 documented as of this encounter
--- OUTSIDE RECORDS SUMMARY | 2025-06-02 15:44 | XMS_ITS | Encounter Summary ---
Author Organization [employer] Address [address] [facility] 7t [place] [address] Care Team Providers Care Respiratory Therapy Technician Name Role Phone Cassie Barnett DO Primary Care Provider + [phone] Frederick Heaton Unavailable Unavailable Reason for Visit * Reason Comments Med Refill Encounter Details Date Type Department Care Team (Late st Contact Info) Description 01/23/[address] [facility] MED [facility] PEDS [address] [place] [address] Cassie Barnett DO [address] [place] [address] Social History Tobacco Use Types Packs/Day Years [...] documented as of this encounter Care Teams Respiratory Therapy Technician Relationship Specialty Start Date End Date Cassie Barnett DO [address] [place] [address] PCP - General Family Medicine 12/29/18 Frederick Heaton FNP [address] [place] [address] Nurse Practitioner Family Medicine 05/20/23 documented as of this encounter
--- OUTSIDE RECORDS SUMMARY | 2025-06-02 15:44 | XMS_ITS | Encounter Summary ---
Author Organization [employer] Address [address] [facility] 7 [place] [address] Care Team Providers Care Computer Operations Supervisor Name Role Phone Cassie Barnett DO Primary Care Provider + [phone] Frederick Heaton Unavailable Unavailable Reason for Visit * Reason Comments Med Refill Encounter Details Date Type Department Care Team (Late st Contact Info) Description 01/04/2023 Refill [facility] MEDICINE [address] [place], [place] [phone] Cassie Barnett DO [address] [place], [place] [phone] Hyperlipidemia, unspecified hyperlipidemia type; Hypertension, unspecified type [...] as of this encounter Care Teams Computer Operations Supervisor Relationship Specialty Start Date End Date Cassie Barnett DO [address] [place] [address] PCP - General Family Medicine 12/29/18 Frederick Heaton FNP [address] [place] [address] Nurse Practitioner Family Medicine 05/20/23 documented as of this encounter
--- OUTSIDE RECORDS SUMMARY | 2025-06-02 15:44 | XMS_ITS | Encounter Summary ---
Author Organization [employer] Address [address] [facility] 7 [place] [address] Care Team Providers Care Food Checker Name Role Phone Cassie Barnett DO Primary Care Provider + [phone] Frederick Heaton Unavailable Unavailable Reason for Visit * Reason Comments Med Refill Encounter Details Date Type Department Care Team (Late st Contact Info) Description 09/02/2022 Refill [facility] MEDICINE [address] [place], [place] [phone] Eileen Jesus MD [address] [place], [place] [phone] Social History Tobacco Use Types Packs/Day Years [...] documented as of this encounter Care Teams Food Checker Relationship Specialty Start Date End Date Cassie Barnett DO [address] [place], [place] [phone] PCP - General Family Medicine 12/29/18 Frederick Heaton FNP [address] [place] [address] Nurse Practitioner Family Medicine 05/20/23 documented as of this encounter
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
--- OUTSIDE RECORDS SUMMARY | 2025-06-02 15:44 | XMS_ITS | Encounter Summary ---
Author Organization [employer] Address [address] [facility] 7t [place] [address] Care Team Providers Care Dealer Accounts Investigator Name Role Phone Cassie Barnett DO Primary Care Provider + [phone] Frederick Heaton Unavailable Unavailable Reason for Visit * Reason Onset Date Comments Med Refill 06/18/2022 Encounter Details Date Type Department Care Team ([facility] st Contact Info) Description 06/18/2022 Telephone [facility] MEDICINE [address] [place], [place] [phone] Cassie Barnett DO [address] [place] [address] Med Refill Social History Tobacco Use Types [...] documented as of this encounter Care Teams Dealer Accounts Investigator Relationship Specialty Start Date End Date Cassie Barnett DO [address] [place] [address] PCP - General Family Medicine 12/29/18 Frederick Heaton FNP [address] [place] [address] Nurse Practitioner Family Medicine 05/20/23 documented as of this encounter
--- OUTSIDE RECORDS SUMMARY | 2025-06-02 15:44 | XMS_ITS | Encounter Summary ---
Author Organization [employer] Address [address] [facility] 7t [place] [address] Care Team Providers Care Keg Raiser Name Role Phone Cassie Banrett DO Primary Care Provider + [phone] Frederick Heaton Unavailable Unavailable Reason for Visit * Reason Comments Med Refill Encounter Details Date Type Department Care Team ([facility] st Contact Info) Description 03/20/2025 Refill [facility] MED & PEDS [address] [place] [address] Cassie Barnett DO [address] [place] [address] Social History Tobacco Use Types Packs/Day Years [...] with others, in a hotel, in a care home, living outside on the street, on [...] documented as of this encounter Care Teams Keg Raiser Relationship Specialty Start Date End Date Cassie Barnett DO [address] [place] [address] PCP - General Family Medicine 12/29/18 Frederick Heaton FNP [address] [place] [address] Nurse Practitioner Family Medicine 05/20/23 documented as of this encounter
--- OUTSIDE RECORDS SUMMARY | 2025-06-02 15:44 | XMS_ITS | Encounter Summary ---
Author Organization [employer] Address 75 [facility] 7t [place] [address] Care Team Providers Care Mirror Specialist Name Role Phone Cassie Barnett DO Primary Care Provider + [phone] Frederick Heaton Unavailable Unavailable Reason for Visit * Reason Comments Med Refill Encounter Details Date Type Department Care Team (Late st Contact Info) Description 12/16/2024 Refill [facility] MED & PEDS [address] [place] [address] Cassie Barnett DO [address] [place] [address] Social History Tobacco Use Types Packs/Day Years [...] with others, in a hotel, in a penitentiary, living outside on the street, on a [...] documented as of this encounter Care Teams Mirror Specialist Relationship Specialty Start Date End Date Cassie Barnett DO [address] [place] [address] PCP - General Family Medicine 12/29/18 Frederick Heaton FNP [address] [place] [address] Nurse Practitioner Family Medicine 05/20/23 documented as of this encounter
--- OUTSIDE RECORDS SUMMARY | 2025-06-02 15:44 | XMS_ITS | Encounter Summary ---
Author Organization [employer] Address [address] [facility] 7 [place] [address] Care Team Providers Care Cake Icer And Packer Name Role Phone Cassie Barnett DO Primary Care Provider +[phone] Frederick Heaton Unavailable Unavailable Encounter Details Date Type Department Care Team (Late st Contact Info) Description 08/12/2022 Abstract [facility] MEDICINE [address] [place] [address] Cassie Barnett DO [address] [place] [address] Social History Tobacco Use Types Packs/Day Years [...] documented as of this encounter Care Teams Cake Icer And Packer Relationship Specialty Start Date End Date Cassie Barnett DO [address] [place] [address] PCP - General Family Medicine 12/29/18 Frederick Heaton FNP [address] [place] [address] Nurse Practitioner Family Medicine 05/20/23 documented as of this encounter
--- OUTSIDE RECORDS SUMMARY | 2025-06-02 15:44 | XMS_ITS | Encounter Summary ---
Author Organization [employer] Address [address] [facility] 7t [place] [address] Care Team Providers Care Dressed Poultry Grader Name Role Phone Cassie Barnett DO Primary Care Provider + [phone] Frederick Heaton Unavailable Unavailable Reason for Visit * Reason Comments Med Refill Encounter Details Date Type Department Care Team (Late st Contact Info) Description 12/02/2024 Refill [facility] MED & PEDS [address] [place] [address] Cassie Barnett DO [address] [place] [address] Social History Tobacco Use Types Packs/Day Years [...] with others, in a hotel, in a intermediate, living outside on the street, on a [...] documented as of this encounter Care Teams Dressed Poultry Grader Relationship Specialty Start Date End Date Cassie Barnett DO [address] [place] [address] PCP - General Family Medicine 12/29/18 Frederick Heaton FNP [address] [place] [address] Nurse Practitioner Family Medicine 05/20/23 documented as of this encounter
== END 2025-06-02 11:51 ==
LOC: HO.MAMMO 11:50
PROVIDERS: PCP Family Medicine; Visit Provider Family Medicine
DX: Z12.31 Encounter for screening mammogram for malignant neoplasm of breast (principal)
CPT/HCPCS: 77063; 77067

== ENCOUNTER → 2025-06-02 12:15 | Outpatient (BNV) | payer MEDICAID, SELFPAY | PROVIDERS: PCP Family Medicine; Visit Provider Radiology Body Imaging | DX: Z12.31 Encounter for screening mammogram for malignant neoplasm of breast (principal) | CPT/HCPCS: 77063; 77067 ==

== ENCOUNTER → 2025-06-06 09:44 | Outpatient (BNVA) | payer MEDICAID, SELFPAY | PROVIDERS: PCP Family Medicine; Visit Provider Surgery | DX: Z13.79 Encounter for other screening for genetic and chromosomal anomalies (principal) | CPT/HCPCS: 99211 ==

== ENCOUNTER 2025-06-08 08:42 | Outpatient (REF) | payer MEDICAID, SELFPAY ==
[2025-06-08 10:40] LABS: Lipase 14 U/L (8-78)
[2025-06-10 21:43] LABS: Transglutaminase Ab IgG <1.0 U/mL
== END 2025-06-08 08:43 | disposition home or self-care (01) ==
LOC: HO.LAB 08:42
PROVIDERS: PCP Family Medicine; Visit Provider Nurse Practitioner Family
DX: K21.9 Gastro-esophageal reflux disease without esophagitis (principal); K75.81 Nonalcoholic steatohepatitis (NASH); K59.00 Constipation, unspecified; R10.13 Epigastric pain; R14.0 Abdominal distension (gaseous); R11.0 Nausea; R10.32 Left lower quadrant pain
CPT/HCPCS: 36415; 83013; 83690; 86364; 99212

== ENCOUNTER 2025-06-08 08:42 | Outpatient (AMB) | payer MEDICAID, SELFPAY ==
--- OUTSIDE RECORDS SUMMARY | 2025-06-03 11:30 | XMS_ITS | Encounter Summary ---
Author Organization [employer] Address [address] [facility] 7t [place] [address] Care Team Providers Care Inside Sales Assistant Name Role Phone Cassie Barnett DO Primary Care Provider + [phone] Frederick Heaton Unavailable Unavailable Encounter Details Date Type Department Care Team (Late st Contact Info) Description 06/03/2025 11:30 AM EST Office Visit [facility] MEDICINE [address] [place], [place] [phone] Cassie Barnett DO [address] [place] [address] Neck pain (Primary Dx); Acute pain of right shoulder Social History Tobacco Use Types Packs/Day Years [...] with others, in a hotel, in a fdc, living outside on the street, on a [...] AM EDT documented as of this encounter Last Filed Vital Signs Vital Sign Reading Time Taken Comments Blood Pressure 160/100 06/03/2025 10:31 AM EST Pulse 92 06/03/2025 10:26 AM EST Temperature 36.8 C (98.3 F) 06/03/2025 10:26 AM EST Respiratory Rate 16 06/03/2025 10:26 AM EST Oxygen Saturation - - Inhaled Oxygen Concentration - - Weight 90.9 kg (200 lb 6.4 oz) 06/03/2025 10:26 AM EST Height 165.1 cm (5' 5 ) 06/03/2025 10:26 AM EST Body Mass Index 33.35 06/03/2025 10:26 AM EST documented in this encounter Plan of Treatment Upcoming Encounters Date Type Department Care Team (Late st Contact Info) Description 07/06/2025 9:30 AM EST Clinical Support [facility] MEDICINE [address] [place] [id number] Scheduled Orders Name Type Priority Associated Diagnoses Orde r Schedule XR Cervical Spine 2-3 Views Imaging Routine Neck pain Acute pain of right shoulder Expected: 06/03/2025, Expires: 06/03/2026 XR Shoulder 2+ Views Right Imaging Routine Neck pain Acute pain of right shoulder Expected: 06/03/2025, Expires: 06/03/2026 documented as of this encounter Visit Diagnoses Diagnosis Neck pain- Primary Cervicalgia Acute pain of right shoulder documented in this encounter Additional Health Concerns Assessment Noted Time PHQ-9 Depression Total Score: 10 025 1:34 PM EDT documented as of this encounter Care Teams Inside Sales Assistant Relationship Specialty Start Date End Date Cassie Barnett DO [address] [place] [address] PCP - General Family Medicine 12/29/18 Frederick Heaton FNP [address] [place] [address] Nurse Practitioner Family Medicine 05/20/23 documented as of this encounter
--- NOTE | 2025-06-08 08:47 | MHC.OFFVIS ---
Vital Signs 06/08/25 08:56 Height 5 ft 5 in Weight 199 lb BMI 33.1 BP 132/80 Blood Pressure Location Lt brachial Position Sitting Comment Unable to obtain O2 reading per technical difficulty (E21) Intake Visit Reasons: [place] Screening, gerd, fatty liver Intake Note: Returning pt for eval of GERD + Fatty liver. Discuss colo/egd. DIAMOND 2020 w/ AB. CC; C/O GERD w/ epigastric pain, soft stools and intermittent diarrhea. Pt denies any additional sx or concerns at this time. Screen Tacker Required: Yes Screen Tacker Services: Screen Tacker Present Screen Tacker Name: [facility] (Provider only) Information Interpreted: clinical only Accompanied by: Spouse Allergies No Known Allergies Allergy (Verified 06/08/25 08:47) HPI HPI [place] Screening, gerd, fatty liver: Details: LAST VISIT WITH COLLEEN SERNA NOVEMBER 2020 she says she developed severe pain that started in the lower right corner and then to the back and to the left flank. It feels like a pushing and that is all she can describe. She does not have CIC or diarrhea. She frequently also has epi pain and can not eat w.o early satiety and N/V. She hates to vomit so tries not to. The pain is worse with deep breaths and movement. Right now her low back feels tight and with pressure. She burps a lot, but not much flatulence. She had some hematuria but is seeing a urologist and has an upcoming cyctoscopy. XRAY of L spine shows no disease, nor does recent CT. I educate her that I really have no better information out and I did the last time I saw her because she never did her labs or the gastric emptying study. The possibility still strongly include H pylori at least for her upper abdominal discomfort and nausea vomiting. All see if we can get the gastric emptying study rescheduled since she likely had a date and missed it. It was ordered back in August. I also again extensively educated her about doing the H pylori sample. I told her there is also a few specialty labs that the ER would not of known to drawn that I would like her to come in and do. I want to make sure there is no severe GI pathology. So far were not coming up with anything and her very out of proportion pain reaction to light palpation of her spine makes me think this could be related to her fibromyalgia. Certainly fibromyalgia and irritable bowel frequently run together. It appears that the ER has ruled out any severe pathology including renal stones. Does not appear that referred lumbar pain is part of the problem. She expressed concern about her liver but her liver is not pathologically damage in any way that would cause the source of symptoms and she was advised of this. Depending on the outcome of the studies that are pending we also need to consider metabolic causes, neurologic causes or even psychogenic causes. Pancreas appears to be normal imaging studies but I have added pancreatic enzymes to be more in depth. I am also going to add an x-ray of the thoracic spine to see if there is any pathology that would not be seen on a CT scan. I think a trial dicyclomine would be prudent as well to see if bowel spasm is part of the problem since the pain seems to change in location quite frequently. This is explained to the patient she is agreeable. I will see her after the gastric emptying study and call her if any concerning labs come in the meantime. Medications: Changed: From: pantoprazole (Protonix) 40 mg PO DAILY 30 days 30 tabs 6RF To: pantoprazole (Protonix) 40 mg PO BID 30 days 60 tabs 6RF (2) SCANLON (nonalcoholic steatohepatitis): Comment: Elevated AFP 8, neg MRI, Alpha fetoprotein tumor marker is 8.5 09/2019, was 6.7 03/2019, hCG tumor marker is not elevated, hepatitis a B and C are negative, 09/2019 liver function tests are normal, autoimmune workup is negative MRI abd 10/2019 IMPRESSION: 1. Liver homogeneous. No signal loss on out of phase imaging to suggest hepatic steatosis. 2. No cholelithiasis or biliary ductal dilatation. No visible gallstone. No ductal calculus. 3. Normal pancreatic duct. No divisum Code(s): K75.81 - Nonalcoholic steatohepatitis (SCANLON) (3) GERD (gastroesophageal reflux disease): Code(s): K21.9 - Gastro-esophageal reflux disease without esophagitis Medications: Changed: From: pantoprazole (Protonix) 40 mg PO DAILY 30 days 30 tabs 6RF To: pantoprazole (Protonix) 40 mg PO BID 30 days 60 tabs 6RF (4) Abdominal cramping: Code(s): R10.9 - Unspecified abdominal pain Medications: New: dicyclomine 20 mg PO QID 30 days 120 tabs 3RF (5) Thoracic back pain: Code(s): M54.6 - Pain in thoracic spine Orders: Orders: XR thoracic spine 2V 12/05/20 TODAY'S VISIT Patient is here today for requested visit. Previously seen by [employer] Colleen yeboah in 2020. Patient reports that her symptoms continue. Currently she is not on any PPI or H2 nany. Describes epigastric pain postprandially no matter what she eats. Patient reports dyspepsia with occasional dysphagia without odynophagia. Patient reports epigastric pain and left lower quadrant pain. Patient reports constant bloating. Reports that she is moving her bowels, however most of the time is loose. After bowel movement patient does not feel like she empties her bowels completely. Patient denies melena, hematochezia. Patient just recently came back from [place]. Has ultrasound with elastography in June, patient was encouraged to keep the appointment. Patient reports that mostly she eats Arabic food. [facility] Medical History Pes planus of both feet Hyperlipidemia CAD (coronary artery disease) Fibromyalgia Surgical History S/P tubal ligation Hx of cardiac cath (04/15/18) Hx of section History of carpal tunnel surgery Hx of removal of cyst History of esophagogastroduodenoscopy (EGD) (11/22/14) History of surgery on wrist Family History Maternal Grandmother History of breast cancer Maternal Grandfather History of liver cancer Father CVD (cardiovascular disease) Mother HTN (hypertension) Diabetes Rheumatoid arthritis Fibromyalgia Paternal Grandmother History of breast cancer Family/Other History of breast cancer Social History Household Members: None Housing: Apartment Alcohol intake: current Alcohol intake frequency: does not drink Substance Use Type: Marijuana Review of Systems Const Denies weight gain and Denies weight loss ENT Reports no additional complaints, Denies dysphagia and Denies odynophagia Card Reports no additional complaints Resp Reports no additional complaints GI Reports abdominal pain, Denies belching, Denies melena, Reports bloating, Denies change in bowel habits, Reports constipation, Denies dysphagia, Denies excessive flatus, Denies dyspepsia, Reports heartburn, Denies diarrhea, Reports loose stools, Reports nausea, Denies odynophagia and Denies vomiting Musc Reports no additional complaints Neuro Reports no additional complaints Psych Reports no additional complaints Endo Reports no additional complaints Physical Exam Vital Signs: Last Vital Signs BP 132/80 06/08/25 08:56 BMI result Body Mass Index 33.1 Const General: healthy appearing and no acute distress Nutritional Appearance: obese Orientation/consciousness: patient oriented x3 Resp Effort & Inspection: normal respiratory effort, able to speak in complete sentences, no tracheal deviation and symmetric chest movement Auscultation: clear to auscultation bilaterally Cardio Rate: regular rate GI Inspection: Yes normal to inspection, No distended and Yes obesity Palpation (GI): Soft to palpation, not firm, nontender and No hepatosplenomegaly present Auscultation: normal bowel sounds General: Yes no CVA tenderness Back/Spine/Pelvis Back: no CVA tenderness Skin General skin exam: elasticity normal, turgor normal and dry skin Neuro General: patient oriented x3 Psych Appearance: grossly normal Mental Status: mental status grossly normal Assessment & Plan Assessment & Plan (1) GERD (gastroesophageal reflux disease): Code(s): K21.9 - Gastro-esophageal reflux disease without esophagitis Category: Medical Qualifiers: Esophagitis presence: esophagitis presence not specified Qualified Code(s): K21.9 - Gastro-esophageal reflux disease without esophagitis (2) SCANLON (nonalcoholic steatohepatitis): Comment: Elevated AFP 8, neg MRI, Alpha fetoprotein tumor marker is 8.5 09/2019, was 6.7 03/2019, hCG tumor marker is not elevated, hepatitis a B and C are negative, 09/2019 liver function tests are normal, autoimmune workup is negative MRI abd 10/2019 IMPRESSION: 1. Liver homogeneous. No signal loss on out of phase imaging to suggest hepatic steatosis. 2. No cholelithiasis or biliary ductal dilatation. No visible gallstone. No ductal calculus. 3. Normal pancreatic duct. No divisum Code(s): K75.81 - Nonalcoholic steatohepatitis (SCANLON) Category: Medical (3) Epigastric pain: Code(s): R10.13 - Epigastric pain Category: Medical (4) Abdominal cramping: Code(s): R10.9 - Unspecified abdominal pain Category: Medical (5) Postprandial abdominal bloating: Code(s): R14.0 - Abdominal distension (gaseous) Plan Will check H pylori and treat empirically if positive. Will check lipase, transglutaminase. Patient will be started on Nexium in the morning and famotidine at night time. Discussed with patient avoiding dietary triggers in late night snacking. Staying upright for minimum 3 hours after meals discussed with patient. Also discussed with patient low FODMAP diet. She reports frequent abdominal bloating. Patient will need to start taking senna in the evening to help her empty her bowels better. Increase fiber, water intake and activity to promote bowel motility. Patient has ultrasound in June. I will see her in 6 weeks. Patient was encouraged to call us if she will have worsening GI concerning symptoms. Patient is agreeable to current plan of care and verbalizes understanding of instructions. She was given the opportunity to ask questions and all questions answered. Thank you for allowing me to participate in her care Orders: Orders Lipase 06/08/25 R10.9 - Unspecified abdominal pain Transglutaminase Ab IgG 06/08/25 R10.9 - Unspecified abdominal pain H Pylori Breath Test 06/08/25 K21.9 - Gastro-esophageal reflux disease without esophagitis Transglutaminase IgA 06/08/25 R10.9 - Unspecified abdominal pain Medications: New ondansetron 4 mg PO Q8H PRN 20 tabs 0RF nausea and vomiting R11.0 - Nausea famotidine (Pepcid) 20 mg PO BEDTIME 30 tabs 3RF K21.9 - Gastro-esophageal reflux disease without esophagitis esomeprazole magnesium (Nexium) 40 mg PO DAILY 30 caps 2RF K21.9 - Gastro-esophageal reflux disease without esophagitis sennosides (Natural Senna Laxative) 17.2 mg (2 x 8.6 mg) PO BEDTIME 60 tabs 3RF constipation K59.00 - Constipation, unspecified Coding Level of Care Code New Pt Level 4 (57475) Diagnoses Gastroesophageal reflux disease, unspecified whether esophagitis present K21.9 Esophagitis presence: esophagitis presence not specified SCANLON (nonalcoholic steatohepatitis) K75.81 Epigastric pain R10.13 Abdominal cramping R10.9 Postprandial abdominal bloating R14.0 Time Spent (min) 50 Comment 35 minutes spent with patient and additional 15 minutes spent reviewing her records
--- OUTSIDE RECORDS SUMMARY | 2025-06-08 08:47 | XMS_ITS ---
craniocaudal views along with computer-aided detection (CAD). Synthesized 2D images are generated from the tomosynthesis. FINDINGS: BREAST COMPOSITION: There are scattered areas of fibroglandular density. RIGHT BREAST: Tissue marker from previous needle core biopsy. No significant masses, suspicious calcifications or other abnormalities are seen. LEFT BREAST: No significant masses, suspicious calcifications or other abnormalities are seen. MM/MM tomosynthesis screening BI IMPRESSION: BILATERAL BREASTS: Benign, no mammographic evidence of malignancy. Normal interval follow-up is recommended in 12 months. ASSESSMENT: BI-RADS: Category 2: Benign RECOMMENDATION: Routine annual mammography screening. FOLLOW-UP: 1 year F/U This examination should not preclude the clinical evaluation of a suspicious palpable abnormality. This patient's information was entered into a reminder system with a target due date for their next mammogram. Electronically signed by: Sohan Walton MD 06/05/2025 12:40 PM EST RP Dictated By: Sohan Walton MD Signed By: <Electronically signed by Sohan Walton MD in OV> 06/05/25 1240 DD/ 1155 TD/TT: 06/02/25 1211 Instrument Panel Assembler: us Cassie Barnett DO [facility] [place] PROCEDURES Final Resu lt * Vitamin D, 25-Hydroxy, Total, Immunoassay (04/19/2025 9:53 AM EST) Vitamin D 25-OH Total 32.4 >30 ng/mL [facility] Comment: Health Based Reference Values*< 20 ng/mL Ddurwnmnp45-24 ng/mL Insufficient> 30 ng/mL Sufficient*Jesus REA. N [...] ORDERABLES Final R esult Performing Organization Address [facility]/ZIP Co de Phone Number [facility] [address] [place] [phone] * Hepatitis C Antibody with Reflex to HCV, RNA, Quantitative, Real-Time PCR (04/19/2025 9:53 AM EST) Pathologist [facility] Hepatitis C Antibody Nonreactive Nonreactive [facility] Comment:Antibodies to HCV no t detected; does not exclude early acuteHCV infection. Blood Venous blood specimen / Unknown 04/19/2025 9:53 AM EST 04/19/2025 11:50 AM EST Cassie Ericka LAB BLOOD ORDERABLES Final R esult Performing Organization Address [facility] Co de Phone Number [facility] [address] [place] [phone] * (ABNORMAL) Alpha-Fetoprotein, Tumor Marker (04/19/2025 9:53 AM EST) Pathologist [facility] Alpha Fetoprotein 7.4(A) ng/mL [facility] Comment:Reference Range: <6. 1The use of AFP as a tumor marker in females is not recommended.This test was performed using the Eran Coulterchemiluminescent method. Values obtained fromdifferent assay methods cannot be usedinterchangeably. AFP levels, regardless ofvalue, should not be interpreted as absoluteevidence of the presence or absence of disease.THIS TEST WAS PERFORMED AT:[employer] [place] [phone] WANG MD Blood Venous blood specimen / Unknown 04/19/2025 9:53 AM EST 04/19/2025 11:54 AM EST Cassie Barnett DO LAB BLOOD ORDERABLES Final R esult Performing Organization Address [facility] Co de Phone Number [facility] [address] [place] [phone] * RPR (Monitor) with Reflex to??Titer (04/19/2025 9:53 AM EST) RPR (Monitor) w/Refl Titer NON-REACTI VE NON-REACT NINA [facility] Comment:THIS TEST WAS PERFOR MED AT:[employer] [place] [phone] WANG MD Rapid Plasma Reagin Ab Titer TNP [facility] Blood Venous blood specimen / Unknown 04/19/2025 9:53 AM EST 04/19/2025 11:54 AM EST Cassie Barnett LAB BLOOD ORDERABLES Final R esult Performing Organization Address [facility] Co de Phone Number [facility] [address] [place] [phone] * HIV-1/2 Antigen and Antibodies, Fourth Generation, with Reflexes (04/19/2025 9:53 AM EST) HIV AB/AG Nonreactive Nonreactive [facility] Comment:HIV-1 p24 Ag and/or HIV-1/HIV-2 Ab not detected.A test result that is nonreactive does not exclude thepossibility of exposure to or infection with HIV-1 and/orHIV-2. Nonreactive results in this assay for individualswith prior exposure to HIV-1 and/or HIV-2 may be due toantigen and antibody levels that are below the limit ofdetection of this assay.The [employer] HIV Ag/Ab Combo assay result andsupplemental assay results should be interpreted inconjunction with the patient's clinical presentation,history and other laboratory results. If the results areinconsistent with clinical evidence, additional testing issuggested to confirm the result. Blood Venous blood specimen / Unknown 04/19/2025 9:53 AM EST 04/19/2025 11:50 AM EST us Cassie Barnett DO LAB BLOOD ORDERABLES Final R esult [facility] [address] [place] [phone] * (ABNORMAL) CBC (04/19/2025 9:53 AM EST) White Blood Count 4.5(L) 4.8 - 10.8 X10*3/uL [facility] Red Blood Count 5.08 4.20 - 5.50 X10*6/uL [facility] Hemoglobin 14.9 12.0 - 16.0 g/dl [facility] Hematocrit 45.4 37.0 - 47.0 % [facility] Mean Corpuscular Volume 89.4 80.0 - 98.0 fL [facility] Mean Corpuscular Hemoglobin 29.3 27.0 - 33.0 pg [facility] Mean Corpuscular HGB Conc 32.8 31.0 - 35.0 g/dl [facility] Red Cell Distribution Width 13.7 11.0 - 16.0 % [facility] Platelet Count 321 160 - 400 X10*3/uL [facility] Mean Platelet Volume 9.8 9.4 - 12.3 fL [facility] NRBC Pct Auto 0.0 0.0 - 0.2 /100WBC [facility] NRBC Abs Auto 0.000 0.0 - 0.012 X10*3/uL [facility] Blood Venous blood specimen / Unknown 04/19/2025 9:53 AM EST 04/19/2025 11:54 AM EST Cassie Lamontenehemias DO LAB BLOOD ORDERABLES Final R esult Performing Organization Address [facility]/ZIP Co de Phone Number [facility] [address] [place] [phone] * TSH (04/19/2025 9:53 AM EST) Thyroid Stimulating Hormone 0.88 0.32 - 4.0 uIU/mL [facility] Comment:TSH 3rd Generation ( [facility]) Blood Venous blood specimen / Unknown 04/19/2025 9:53 AM EST 04/19/2025 11:54 AM EST Cassie Ericka LAB BLOOD ORDERABLES Final R esult Performing Organization Address [facility] Co de Phone Number [facility] [address] [place] [phone] * T4, Free (04/19/2025 9:53 AM EST) Free T4 (Free Thyroxine) 0.91 0.71 - 1.85 ng/dL [facility] Blood Venous blood specimen / Unknown 04/19/2025 9:53 AM EST 04/19/2025 11:50 AM EST Cassie Lamontenehemias DO LAB BLOOD ORDERABLES Final R esult Performing Organization Address [facility] Co de Phone Number [facility] [address] [place] [phone] * Hemoglobin A1c (04/19/2025 9:53 AM EST) Hemoglobin A1c 5.6 <6.0 % [facility] Comment:Hemoglobin A1C Refer ence Range Adults: 4.8 - 6.0 % Non diabetic: < 6.0 % Goal: < 7.0 %Additional Action Suggested: > 8.0 %Note: Hemoglobin A1c results are invalid for patients with abnormal amounts of HbF. Blood transfusions may impact the HbA1c concentration in the patient sample. Estimated Average Glucose 114 mg/dL [facility] Comment:eAG = Estimated ave rage glucose which is %A1C expressed asaverage glucose, using the formula of the Y4Y-VcbnemyJyaqndz Glucose study (ADAG), Diabetes Care, Vol.31,#8,Jan. 2007 Blood Venous blood specimen / Unknown 04/19/2025 9:53 AM EST 04/19/2025 11:50 AM EST Cassie Ericka LAB BLOOD ORDERABLES Final R esult Performing Organization Address [facility] Co de Phone Number [facility] [address] [place] [phone] * Hepatic Function Panel (04/19/2025 9:53 AM EST) Bilirubin, Total 0.3 0.0 - 1.0 mg/dL [facility] Bilirubin, Direct 0.1 0.0 - 0.5 mg/dL [facility] Aspartate Amino Transferase 22 5 - 31 U/L [facility] Alanine Aminotransferase 25 0 - 31 U/L [facility] Total Protein 7.7 6.5 - 8.0 g/dL [facility] Albumin Level 4.4 3.5 - 5.0 g/dL [facility] Alkaline Phosphatase 52 39 - 117 U/L [facility] Blood Venous blood specimen / Unknown 04/19/2025 9:53 AM EST 04/19/2025 11:54 AM EST [facility] LAB BLOOD ORDERABLES Final R esult Performing Organization Address [facility] de Phone Number [facility] [address] [place] [address] [phone] * (ABNORMAL) Lipid Panel, Standard (04/19/2025 9:53 AM EST) Triglycerides 171(H) <150 mg/dL [facility] Comment:Desirable Triglyceri de: less than 150 mg/dLBorderline High Triglyceride 150-199 mg/dLHigh Triglyceride: 200-499 mg/dLVery High Triglyceride: greater than or equal to 5OO mg/dL Cholesterol 146 <200 mg/dL [facility] Comment:Desirable Cholestero l: less than 200 mg/dLBorderline High Cholesterol: 200-239 mg/dLHigh Cholesterol: greater than 239 mg/dL LDL Cholesterol Calculated 62 <100 mg/dL [facility] Comment:Desirable LDL: less than 100 mg/dLNear Optimal/Above Optimal LDL: 110- 129 mg/dLBorderline High LDL: 130-159 mg/dLHigh LDL: 160-189 mg/dLVery High LDL: greater than or equal to 190 mg/dL HDL Cholesterol 50 >40 mg/dL [facility] Comment:Desirable HDL: great er than 40 mg/dL Note: This HDL assay may give artificially low results in patients with liver disease. 04/19/2025 9:53 AM EST 04/19/2025 11:54 AM EST us Generic External Data Provider LAB BLOOD ORDERAB LES Final Result Performing Organization Address City/State/[facility] Co de Phone Number [facility] [address] [place] [phone] * (ABNORMAL) Basic Metabolic Panel (04/19/2025 9:53 AM EST) Sodium 139 135 - 145 mmol/L [facility] Potassium 4.2 3.3 - 5.1 mmol/L [facility] Chloride 109(H) 96 - 108 mmol/L [facility] Carbon Dioxide 25 22 - 29 mmol/L [facility] Anion Gap 9(L) 12 - 20 [facility] Urea Nitrogen (BUN) 12 9 - 16 mg/dL [facility] Creatinine, Serum 0.77 0.5 - 1.4 mg/dL [facility] Estimated Glomerular Filt Rate >60 [facility] Comment:Chronic Kidney Disea se: Estimated GFR < 60 mL/min/1.47b9Fmnrap Kidney Disease: Estimated GFR < 15 mL/min/1.73m2 Glucose 92 60 - 115 mg/dL [facility] Calcium 9.1 8.4 - 10.2 mg/dL [facility] Blood Venous blood specimen / Unknown 04/19/2025 9:53 AM EST 04/19/2025 11:54 AM EST us Cassie Barnett DO LAB BLOOD ORDERABLES Final R esult Performing Organization Address City/[facility] Co de Phone Number [facility] [address] [place] [address] [phone] * Albumin, Random Urine W/Creatinine (04/19/2025 9:48 AM EST) Creatinine, Urine 192.19 mg/dL [facility] Microalbumin Urine 9.0 mg/L [facility] Microalbum Creatinine Ratio Ur 4.6 <30 ug/mg cr [facility] Comment:Albumin/Creatinine R atio Reference Ranges: Normal: < 30 ug/mg creatinine Microalbuminuria: 30 - 300 ug/mg creatinineClinical Albuminuria: > 300 ug/mg creatinine Urine (Urine, Random) 04/19/2025 9:48 AM EST 04/19/2025 11:35 AM EST us Cassie Barnett DO LAB URINE ORDERABLES Final R esult Performing Organization Address City/[facility] Co de Phone Number [facility] [address] [place] [phone] * XR Knee 4+ Views Right (04/15/2025 9:35 AM EDT) Anatomical Region Laterality Modality Lower Extremities, Knee Right Radiogra phic Imaging 04/15/2025 9:35 AM EDT Narrative 04/15/2025 9:51 AM EDT [facility] [address] [place] [address] XRay Report Signed Patient: Marcela Lopez MR#: [id number] 2 : 1975 Acct:[id number] Age/Sex: 49 / F ADM Date: 04/15/25 Loc: JOHNNY Attending Dr: Cassie Barnett DO Ordering Physician: Cassie Barnett DO Date of Service: 04/15/25 Procedure(s): XR knee RT 4V Accession Number(s): [id number] cc: Cassie Barnett DO Reason for Exam: [...] in OV> 04/15/2548 DD/ 4 TD/TT: 04/15/25935 Instrument Panel Assembler: Procedure Note Donotuseinterpreter, Image - 04/15/[address] [address] XRay Report Signed Patient: Marcela LopezMR#: [id number] 2 : 1975Acct:[id number] Age/Sex: 49 / FADM Date: 04/15/25 Loc: JOHNNY Attending Dr: Cassie Barnett DO Ordering Physician: Cassie Barnett DO Date of Service: 04/15/25 Procedure(s): XR knee RT 4V Accession Number(s): [id number] cc: Cassie Barnett DO Reason for Exam: [...] in OV> 04/15/2548 DD/ 4 TD/TT: 04/15/25935 Instrument Panel Assembler: Cassie Barnett DO IMG XR PROCEDURES Final Resu lt * XR Knee 4+ Views Left (04/15/2025 9:33 AM EDT) Anatomical Region Laterality Modality Lower Extremities, Knee Left Radiogra phic Imaging 04/15/2025 9:33 AM EDT Narrative 04/15/2025 9:49 [place] [address] XRay Report Signed Patient: Marcela Lopez MR#: [id number] 2 : 1975 Acct:[id number] Age/Sex: 49 / F ADM Date: 04/15/25 Loc: .HHCX Attending Dr: Cassie Barnett DO Ordering Physician: Cassie Barnett DO Date of Service: 04/15/25 Procedure(s): XR knee LT 4V Accession Number(s): [id number] cc: Cassie Barnett DO Reason for Exam: [...] in OV> 04/15/25945 DD/ 2 TD/TT: 04/15/25935 Instrument Panel Assembler: Procedure Note Donotuseinterpreter, Image - 04/15/[address] [address] XRay Report Signed Patient: Marcela LopezMR#: [id number] 2 : 1975Acct:[id number] Age/Sex: 49 / FADM Date: 04/15/25 Loc: HO.HHCX Attending Dr: Cassie Barnett DO Ordering Physician: Cassie Barnett DO Date of Service: 04/15/25 Procedure(s): XR knee LT 4V Accession Number(s): [id number] cc: Cassie Barnett DO Reason for Exam: [...] in OV> 04/15/25945 DD/ 2 TD/TT: 04/15/25935 Instrument Panel Assembler: Cassie Barnett DO IMG XR PROCEDURES Final Resu lt * Hm Pap Smear (06/12/2020) Pap Negative for intraephithelial lesion or malignancy Negative for intraephithelial lesion or malignancy, Other HPV Undetected Undetected, Indeterminate, Quantitative, Not Detected us Historical Provider HEALTH MAINTENANCE Final Result from Last 3 Months or Most Recently Relevant to Health Maintenance [place] [address] [place] [address] C3 Care Teams Credit Collections Clerk Relationship Specialty Start Date End Date Cassie Barnett DO [address] [place] [address] PCP - General Family Medicine 12/29/18 Frederick Heaton FNP [address] [place] [address] Nurse Practitioner Family Medicine 05/20/23
--- OUTSIDE RECORDS SUMMARY | 2025-06-08 08:47 | XMS_ITS | Encounter Summary ---
Author Organization [employer] Address [address] [facility] 7t [place] [address] Care Team Providers Care Open Winder Name Role Phone Cassie Barnett DO Primary Care Provider + [phone] Frederick Heaton Unavailable Unavailable Reason for Visit * Reason Comments Med Refill Encounter Details Date Type Department Care Team (Late st Contact Info) Description 12/16/[address] [facility] [address] [place] [address] Cassie Barnett DO [address] [place] [address] Social History Tobacco Use Types Packs/Day Years [...] with others, in a hotel, in a retirement, living outside on the street, on a [...] as of this encounter Plan of Treatment Upcoming Encounters Date Type Department Care Team (Late st Contact Info) Description 07/06/2025 9:30 AM EST Clinical [address] [facility] [address] [place] [address] documented as of this encounter Visit Diagnoses Not on filedocumented in this encounter Additional Health Concerns Assessment Noted Time PHQ-9 Depression Total Score: 19 024 10:22 AM EDT documented as of this encounter Care Teams Open Winder Relationship Specialty Start Date End Date Cassie Barnett DO [address] [place] [address] PCP - General Family Medicine 12/29/18 Frederick Heaton FNP [address] [place] [address] Nurse Practitioner Family Medicine 05/20/23 documented as of this encounter
--- OUTSIDE RECORDS SUMMARY | 2025-06-08 08:47 | XMS_ITS | Encounter Summary ---
Author Organization [email or web address] Address [address] [facility] 7t [place] [address] Care Team Providers Care Industrial Cleaner Name Role Phone Cassie Barnett DO Primary Care Provider + [phone] Frederick Heaton Unavailable Unavailable Reason for Visit * Reason Comments Med Refill Encounter Details Date Type Department Care Team (Late st Contact Info) Description 12/10/2023 Refill [facility] [address] [place] [address] Frederick Heaton FNP Social History Tobacco Use [...] Description 07/06/2025 9:30 AM EST Clinical Support [facility] [address] [place] [address] documented as of this encounter Visit Diagnoses Not on filedocumented in this encounter Additional Health Concerns Assessment Noted Time PHQ-9 Depression Total Score: 8 04/07/20 2:43 PM EDT documented as of this encounter Care Teams Industrial Cleaner Relationship Specialty Start Date End Date Cassie Barnett DO [address] [place] [address] PCP - General Family Medicine 12/29/18 Frederick Heaton FNP [address] [place] [address] Nurse Practitioner Family Medicine 05/20/23 documented as of this encounter
--- OUTSIDE RECORDS SUMMARY | 2025-06-08 08:47 | XMS_ITS | Encounter Summary ---
Author Organization [employer] Address [address] [facility] [address] [place] [address] Care Team Providers Care Security Investigator Name Role Phone Cassie Barnett DO Primary Care Provider + [phone] Frederick Heaton Unavailable Unavailable Reason for Visit * Reason Onset Date Comments Med Refill 06/18/2022 Encounter Details Date Type Department Care Team ([facility] st Contact Info) Description 06/18/2022 Telephone [facility] [address] [place], [place] [phone] Cassie Barnett DO [address] [place] [address] Med Refill Social History Tobacco Use Types [...] Description 07/06/2025 9:30 AM EST Clinical Support [facility] [address] [place] [address] documented as of this encounter Visit Diagnoses Not on filedocumented in this encounter Additional Health Concerns Assessment Noted Time PHQ-9 Depression Total Score: 14 022 9:35 AM EST documented as of this encounter Care Teams Security Investigator Relationship Specialty Start Date End Date Cassie Barnett DO [address] [place] [phone] PCP - General Family Medicine 12/29/18 Frederick Heaton FNP [address] [place] [address] Nurse Practitioner Family Medicine 05/20/23 documented as of this encounter
--- OUTSIDE RECORDS SUMMARY | 2025-06-08 08:47 | XMS_ITS | Encounter Summary ---
Author Organization [employer] Address [address] [facility] [address] [place] [address] Care Team Providers Care E D Tech Name Role Phone Cassie Barnett DO Primary Care Provider + [phone] Frederick Heaton Unavailable Unavailable Reason for Visit * Reason Comments Med Refill Encounter Details Date Type Department Care Team ([facility] st Contact Info) Description 03/20/2025 Refill [facility] [address] [place] [address] Cassie Barnett DO [address] [place] [address] Social History Tobacco Use Types Packs/Day Years [...] Description 07/06/2025 9:30 AM EST Clinical Support [facility] [address] [place] [address] documented as of this encounter Visit Diagnoses Not on filedocumented in this encounter Additional Health Concerns Assessment Noted Time PHQ-9 Depression Total Score: 19 024 10:22 AM EDT documented as of this encounter Care Teams E D Tech Relationship Specialty Start Date End Date Cassie Barnett DO [address] [place] [address] PCP - General Family Medicine 12/29/18 Frederick Heaton FNP [address] [place] [address] Nurse Practitioner Family Medicine 05/20/23 documented as of this encounter
--- OUTSIDE RECORDS SUMMARY | 2025-06-08 08:47 | XMS_ITS | Clinical Summary ---
Author Organization [place] [address] [facility] Building Address [address] [place] [address] Phone Care Team Providers Care Maintenance And Utilities Supervisor Name Role Phone Nadya Barnettfer Sebastian LOPEZ Primary Care Provider [phone] Surgical History Surgery Date Site/Laterality Comments OTHER SURGICAL HISTORY 1999 PROCEDURE: TX LIG/TRNSXJ FLP TUBE ABDL/VAG APPR UNI/BI; COMMENT: TX SECTION PROCEDURE: TX DELIVERY ONLY CERVICAL BIOPSY W/ LOOP ELECTRODE EXCISION 11/07/2009 PROCEDURE: TX CONIZATION CERVIX W/WO D&C RPR ELTRD EXC; COMMENT: [facility] Medical History Medical History Date Comments Anxiety [...] Office Visit Obstetrics and Gynecology - [place] [address] [place] [address] Flores Betancourt CNM [address] [place], [place] Health Maintenance Due Date Last Done [...] RESULTING AGENCY - 06/14/2020 12:20 PM EST [id number] THINPREP PAP, IMAGED: NEGATIVE FOR SQUAMOUS INTRAEPITHELIAL [...] LMP 05/15/20 [Z12.4, Z01.419] [place] [facility] CYTOLOGY ORDERA BLES Final Result HISTORICAL TESTING LAB RESULTING AGENCY from Last 3 Months or Most Recently Relevant to Health Maintenance Insurance MEDICA[place] - [place] Care Teams Maintenance And Utilities Supervisor Relationship Specialty Start Date End Date Cassie Barnett DO [address] [place] [address] PCP - General Internal Medicine 01/17/14
--- OUTSIDE RECORDS SUMMARY | 2025-06-08 08:47 | XMS_ITS | Encounter Summary ---
Author Organization [employer] Address [address] [facility] 7t [place] [address] Care Team Providers Care Front End Architect Name Role Phone Cassie Barnett DO Primary Care Provider + [phone] Frederick Heaton Unavailable Unavailable Encounter Details Date Type Department Care Team (Late st Contact Info) Description 01/05/2024 Orders Only [facility] MEDICINE [address] [place], [place] [phone] Eileen Jesus MD [address] [place] [address] Social History Tobacco Use Types Packs/Day Years [...] 9:30 AM EST Clinical Support [facility] MEDICINE [address] [place] [address] documented as of this encounter Visit Diagnoses Not on filedocumented in this encounter Additional Health Concerns Assessment Noted Time PHQ-9 Depression Total Score: 9 12/30/19 24 9:13 AM EDT documented as of this encounter Care Teams Front End Architect Relationship Specialty Start Date End Date Cassie Barnett DO [address] [place] [address] PCP - General Family Medicine 12/29/18 Frederick Heaton FNP [address] [place] [address] Nurse Practitioner Family Medicine 05/20/23 documented as of this encounter
--- OUTSIDE RECORDS SUMMARY | 2025-06-08 08:47 | XMS_ITS | Encounter Summary ---
Author Organization [employer] Address [address] [facility] 7 [place] [address] Care Team Providers Care Bill Poster Installer Name Role Phone Cassie Barnett DO Primary Care Provider + [phone] Frederick Heaton Unavailable Unavailable Reason for Visit * Reason Onset Date Comments Nurse Triage 12/16/2023 Encounter Details Date Type Department Care Team ([facility] st Contact Info) Description 12/16/2023 Telephone [facility] MEDICINE [address] [place], [place] [phone] Cassie Barnett DO [address] [place] [address] Nurse Triage Social History Tobacco Use Types [...] 12/16/2023 4:36 PM EDT Called pt. Via [place] portal developer [phone] [place]. Pt. States that she has a [...] cough x3 days. Pt will come into [facility] walk in tomorrow 12/17/23 at 830am for assessment and care. Protocol Used: Cough (Adult) Protocol-Based Disposition: See in Office or Video Visit Today or Tomorrow- Pt. Will come into [facility] walk in when it opens tomorrow 12/17/23. [...] provider within 15 minutes Reason: Trouble walking Czech Speaker (Accepted Honing Machine Operator Production) Pt 1/2 documented in this encounter Plan of Treatment Upcoming Encounters Date Type Department Care Team (Late st Contact Info) Description 07/06/2025 9:30 AM EST Clinical Support [facility] MEDICINE [address] [place] [address] documented as of this encounter Visit Diagnoses Diagnosis Seasonal allergic rhinitis due to other allergic trigger documented in this encounter Additional Health Concerns Assessment Noted Time PHQ-9 Depression Total Score: 8 04/07/20 23 2:43 PM EDT documented as of this encounter Care Teams Bill Poster Installer Relationship Specialty Start Date End Date Cassie Barnett DO [address] [place] [phone] PCP - General Family Medicine 12/29/18 Frederick Heaton FNP [address] [place] [address] Nurse Practitioner Family Medicine 05/20/23 documented as of this encounter
--- OUTSIDE RECORDS SUMMARY | 2025-06-08 08:47 | XMS_ITS | Encounter Summary ---
Author Organization [employer] Address [address] [facility] 7t [place] [address] Care Team Providers Care Pet Caregiver Name Role Phone Cassie Barnett DO Primary Care Provider + [phone] Frederick Heaton Unavailable Unavailable Reason for Visit * Reason Comments Med Refill Encounter Details Date Type Department Care Team (Late st Contact Info) Description 01/23/2025 Refill [facility] MED & PEDS [address] [place] [address] Cassie Barnett DO [address] [place] [address] Social History Tobacco Use Types Packs/Day Years [...] Description 07/06/2025 9:30 AM EST Clinical Support [facility] MEDICINE [address] [place] [address] documented as of this encounter Visit Diagnoses Not on filedocumented in this encounter Additional Health Concerns Assessment Noted Time PHQ-9 Depression Total Score: 19 024 10:22 AM EDT documented as of this encounter Care Teams Pet Caregiver Relationship Specialty Start Date End Date Cassie Barnett DO [address] [place] [address] PCP - General Family Medicine 12/29/18 Frederick Heaton FNP [address] [place] [address] Nurse Practitioner Family Medicine 05/20/23 documented as of this encounter
--- OUTSIDE RECORDS SUMMARY | 2025-06-08 08:47 | XMS_ITS | Encounter Summary ---
Author Organization [employer] Address [address] [facility] 7t [place] [address] Care Team Providers Care Entertainment Centre Manager Name Role Phone Cassie Barnett DO Primary Care Provider + [phone] Frederick Heaton Unavailable Unavailable Reason for Visit * Reason Comments Med Refill Encounter Details Date Type Department Care Team (Late st Contact Info) Description 06/08/2025 Refill [facility] CHC MED & PEDS [address] [place] [address] Katina Brunner MD [address] [place] [address] Social History Tobacco Use Types Packs/Day Years [...] Description 07/06/2025 9:30 AM EST Clinical Support [facility] MEDICINE [address] [place] [address] documented as of this encounter Visit Diagnoses Not on filedocumented in this encounter Additional Health Concerns Assessment Noted Time PHQ-9 Depression Total Score: 10 025 1:34 PM EDT documented as of this encounter Care Teams Entertainment Centre Manager Relationship Specialty Start Date End Date Casise Barnett DO [address] [place] [address] PCP - General Family Medicine 12/29/18 Frederick Heaton FNP [address] [place] [address] Nurse Practitioner Family Medicine 05/20/23 documented as of this encounter
--- OUTSIDE RECORDS SUMMARY | 2025-06-08 08:47 | XMS_ITS | Encounter Summary ---
Author Organization [employer] Address [address] [facility] 7t [place] [address] Care Team Providers Care Employee Service Officer Name Role Phone Cassie Barnett DO Primary Care Provider + [phone] Frederick Heaton Unavailable Unavailable Reason for Visit * Reason Comments Med Refill Encounter Details Date Type Department Care Team (Late st Contact Info) Description 12/02/2024 Refill [facility] CHC MED & PEDS [address] [place] [address] Cassie Barnett DO [address] [place] [address] Social History Tobacco Use Types Packs/Day Years [...] 9:30 AM EST Clinical Support [facility] MEDICINE [address] [place] [address] documented as of this encounter Visit Diagnoses Not on filedocumented in this encounter Additional Health Concerns Assessment Noted Time PHQ-9 Depression Total Score: 19 024 10:22 AM EDT documented as of this encounter Care Teams Employee Service Officer Relationship Specialty Start Date End Date Cassie Barnett DO [address] [place] [address] PCP - General Family Medicine 12/29/18 Frederick Heaton FNP [address] [place] [address] Nurse Practitioner Family Medicine 05/20/23 documented as of this encounter
--- OUTSIDE RECORDS SUMMARY | 2025-06-08 08:47 | XMS_ITS | Encounter Summary ---
Author Organization [employer] Address [address] [facility] 7 [place] [address] Care Team Providers Care Dermatologist Managing Partner Name Role Phone Cassie Barnett DO Primary Care Provider + [phone] Frederick Heaton Unavailable Unavailable Reason for Visit * Reason Comments Med Refill Encounter Details Date Type Department Care Team (Late st Contact Info) Description 09/02/2022 Refill [facility] MEDICINE [address] [place] [phone] Eileen Jesus MD [address] [place] [address] Social History Tobacco Use Types Packs/Day Years [...] Description 07/06/2025 9:30 AM EST Clinical Support [facility] MEDICINE [address] [place] [address] documented as of this encounter Visit Diagnoses Not on filedocumented in this encounter Additional Health Concerns Assessment Noted Time PHQ-9 Depression Total Score: 14 12/ 022 9:35 AM EST documented as of this encounter Care Teams Dermatologist Managing Partner Relationship Specialty Start Date End Date Cassie Barnett DO [address] [place] [address] PCP - General Family Medicine 12/29/18 Frederick Heaton FNP [address] [place] [address] Nurse Practitioner Family Medicine 05/20/23 documented as of this encounter
--- OUTSIDE RECORDS SUMMARY | 2025-06-08 08:47 | XMS_ITS | Encounter Summary ---
Author Organization [employer] Address [address] [facility] 7t [place] [address] Care Team Providers Care Market Development Executive Name Role Phone Cassie Barnett DO Primary Care Provider + [phone] Frederick Heaton Unavailable Unavailable Reason for Visit * Reason Comments Med Refill Encounter Details Date Type Department Care Team ([facility] st Contact Info) Description 06/06/2025 Refill [facility] CHC MED & PEDS [address] [place] [address] Cassie Barnett DO [address] [place] [address] Social History Tobacco Use Types Packs/Day Years [...] 9:30 AM EST Clinical Support [facility] MEDICINE [address] [place] [address] documented as of this encounter Visit Diagnoses Not on filedocumented in this encounter Additional Health Concerns Assessment Noted Time PHQ-9 Depression Total Score: 10 025 1:34 PM EDT documented as of this encounter Care Teams Market Development Executive Relationship Specialty Start Date End Date Cassie Barnett DO [address] [place] [address] PCP - General Family Medicine 12/29/18 Frederick Heaton FNP [address] [place] [address] Nurse Practitioner Family Medicine 05/20/23 documented as of this encounter
--- OUTSIDE RECORDS SUMMARY | 2025-06-08 08:47 | XMS_ITS | Encounter Summary ---
Author Organization [employer] Address [address] [facility] 7 [place] [address] Care Team Providers Care Furniture Dipper Name Role Phone Cassie Barnett DO Primary Care Provider +1 [phone] Frederick Heaton Unavailable Unavailable Reason for Visit * Reason Comments Med Refill Encounter Details Date Type Department Care Team (Late st Contact Info) Description 01/04/2023 Refill [facility] MEDICINE [address] [place] [phone] Cassie Barnett DO [address] [place] [phone] Hyperlipidemia, unspecified hyperlipidemia type; Hypertension, unspecified type [...] 9:30 AM EST Clinical Support [facility] MEDICINE [address] [place] [address] documented as of this encounter Visit Diagnoses Diagnosis Hyperlipidemia, unspecified hyperlipidemia type Hypertension, unspecified type documented in this encounter Additional Health Concerns Assessment Noted Time PHQ-9 Depression Total Score: 14 022 9:35 AM EST documented as of this encounter Care Teams Furniture Dipper Relationship Specialty Start Date End Date Cassie Barnett DO [address] [place] [address] PCP - General Family Medicine 12/29/18 Frederick Heaton FNP [address] [place] [address] Nurse Practitioner Family Medicine 05/20/23 documented as of this encounter
--- OUTSIDE RECORDS SUMMARY | 2025-06-08 08:47 | XMS_ITS | Encounter Summary ---
Author Organization [employer] Address [address] [facility] 7t [place] [address] Care Team Providers Care Field Ring Assembler Name Role Phone Cassie Barnett DO Primary Care Provider + [phone] Frederick Heaton Unavailable Unavailable Encounter Details Date Type Department Care Team (Latest Contact Info) Description 06/03/2025 Travel Social History Tobacco Use Types Packs/Day Years [...] with others, in a hotel, in a fpc, living outside on the street, on a [...] Description 07/06/2025 9:30 AM EST Clinical Support [facility] MEDICINE [address] [place] [address] documented as of this encounter Visit Diagnoses Not on filedocumented in this encounter Additional Health Concerns Assessment Noted Time PHQ-9 Depression Total Score: 10 025 1:34 PM EDT documented as of this encounter Care Teams Field Ring Assembler Relationship Specialty Start Date End Date Cassie Barnett DO [address] [place] [address] PCP - General Family Medicine 12/29/18 Frederick Heaton FNP [address] [place] [address] Nurse Practitioner Family Medicine 05/20/23 documented as of this encounter
--- OUTSIDE RECORDS SUMMARY | 2025-06-08 08:47 | XMS_ITS | Encounter Summary ---
Author Organization [employer] Address [address] [facility] 7t [place] [address] Care Team Providers Care Envelope Adjuster Name Role Phone Cassie Barnett DO Primary Care Provider +1 [phone] Frederick Heaton Unavailable Unavailable Encounter Details Date Type Department Care Team (Late st Contact Info) Description 08/12/2022 Abstract [facility] MEDICINE [address] [place] [address] Cassie Barnett DO [address] [place] [address] Social History Tobacco Use Types Packs/Day Years [...] Description 07/06/2025 9:30 AM EST Clinical Support [facility] MEDICINE [address] [place] [address] documented as of this encounter Visit Diagnoses Not on filedocumented in this encounter Additional Health Concerns Assessment Noted Time PHQ-9 Depression Total Score: 14 12//2 022 9:35 AM EST documented as of this encounter Care Teams Envelope Adjuster Relationship Specialty Start Date End Date Cassie Barnett DO [address] [place] [address] PCP - General Family Medicine 12/29/18 Frederick Heaton FNP [address] [place] [address] Nurse Practitioner Family Medicine 05/20/23 documented as of this encounter
[2025-06-08 08:56] VITALS: BP 132/80; BMI 33.1
== END 2025-06-08 10:08 | disposition home or self-care (01) ==
LOC: HO.HGI 08:43
PROVIDERS: PCP Family Medicine; Visit Provider Nurse Practitioner Family
DX: K21.9 Gastro-esophageal reflux disease without esophagitis (principal); K75.81 Nonalcoholic steatohepatitis (NASH); R10.13 Epigastric pain; R10.9 Unspecified abdominal pain; R14.0 Abdominal distension (gaseous)
CPT/HCPCS: 99204